=== PATIENT | female | born 1955 | race Caucasian/White ===

== ENCOUNTER 2024-04-22 22:28 | Inpatient (IN) | payer MEDICARE, BC, SELFPAY ==
[2024-04-22 18:23] VITALS: BP 119/83
[2024-04-22 19:36] VITALS: BMI 17.5
--- NOTE | 2024-04-22 19:38 | ED.GENMED ---
History of Present Illness
General
Chief Complaint: Abdominal Symptoms
Source: patient
Exam Limitations: none
Time Seen by Provider: 04/22/24 19:14
History of Present Illness
History of Present Illness:
This is a 68 year old female that comes in with c/o abnormal labs. States that 2 weeks ago her liver enzymes were elevated. State that she had an US and they kept going up. States that yesterday her liver enzymes were down but her Total louis was
elevated to 7. States that she also had an MRI yesterday at [facility] on her gallbladder. States that the Oncologist office called her and told her to come to the ER as the MRI said that her duct was narrow. States that she is to be admitted and
Yuan to see patient tomorrow. States that she has had nausea and diarrhea and her urine is very dark. Denies any fever, chills, chest pain, SOB, abd pain, vomiting, headache, dizziness, urinary burning.
Past History
Past History
ED Past Medical History: Cancer (Pancreatic cancer)
ED Past Surgical History: (X1)
Social History
Tobacco: Non-smoker
Alcohol: Former
Personal:
Living: with family
Review of Systems
Review of Systems
All Other Systems: ROS reviewed and negative except as documented in HPI and ROS
Constitutional: Reports no symptoms; Denies fever or chills
EENT: Reports no symptoms
Respiratory: Reports no symptoms; Denies cough or trouble breathing
Cardiac: Reports no symptoms; Denies chest pain
ABD/GI: Reports nausea and diarrhea; Denies abdominal pain or vomiting
: Reports dark urine; Denies dysuria, frequency or urgency
Musculoskeletal: Reports no symptoms
Skin: Reports no symptoms
Neurological: Reports no symptoms; Denies dizzy or headache
Psychiatric: Reports no symptoms
Phy Exam
General Physical Exam
General Presentation: no apparent distress
General age: appears stated age
General Skin: warm and dry
General Habitus: normal
General Mental: alert
General Hydration: appears well hydrated
ENT Exam
ENT Exam: TM's normal, pharynx normal and neck supple
Eye Exam
Eye Exam: EOMI and other (Sclera jaundice)
Cardiovascular Exam
Cardiovascular Exam: regular rate/rhythm, no edema, no murmur and normal peripheral pulses
Pulmonary Exam
Pulmonary Exam: lungs clear, no respiratory distress, no rales, chest non tender, no crackles, no rhonchi, no wheezing and no cough
Gastrointestinal Exam
Gastrointestinal Exam: normal bowel sounds, non tender, soft, no organomegaly, no pulsatile mass and non distended
Musculoskeletal Exam
Musculoskeletal Exam: full ROM and no edema
Skin Exam
Skin Exam: warm/dry, no petechia and jaundice
Psychiatric Exam
Psychiatric Exam: normal mood/affect
Course
Orders/Labs/Results
Orders:
Orders
04/22/24 19:38
US Abdomen Complete/Upper Urgent
Comment:
Reason For Exam: elevated liver enzymes.
04/22/24 19:41
0.9% Sodium Chloride 1000 ml [Nss] 1,000 ml IV BOLUS
04/22/24 19:59
Complete Blood Count/With Diff Urgent
Comprehensive Metabolic Panel Urgent
Direct Bilirubin Urgent
Comment: ADD ON
Lipase Urgent
04/22/24 21:07
Add On- LAB Urgent
Tests Added?: Direct louis
Abnormal Lab Results
04/22/24
19:59
WBC 18.6 H 10^3/uL
(4.8-10.8)
RBC 2.68 L 10^6/uL
(4.20-5.40)
Hgb 8.3 L g/dL
(12.0-16.0)
Hct 23.5 L %
(37.0-47.0)
RDW 18.6 H %
(11.5-14.5)
Abs Immat Gran (auto) 0.5 H 10^3/uL
(0-0.05)
Absolute Neuts (auto) 14.9 H 10^3/uL
(1.4-6.5)
Absolute Monos (auto) 1.4 H 10^3/uL
(0.1-0.6)
Immature Gran % 2.5 H %
(0-0.5)
Neutrophils % 80.0 H %
(42.2-75.2)
Lymphocytes % 8.8 L %
(20.5-51.1)
Carbon Dioxide 18 L mmol/L
(22-30)
Creatinine 0.4 L mg/dL
(0.6-1.0)
Glucose 105 H mg/dl
(70-99)
Total Bilirubin 7.1 H mg/dl
(0.2-1.3)
AST 147 H U/L
(14-36)
ALT 355 H U/L
(0-35)
Alkaline Phosphatase 367 H U/L
(38-126)
Total Protein 6.1 L g/dl
(6.3-8.2)
04/22/24 19:59
04/22/24 19:59
Leukocytosis, H/H slightly low. carbon dioxide slightly low. glucose nonfasting. Total louis elevation, AST/ALT elevation. Alk phos elevation (cancer), Total protein slightly low. Lipase normal at 102. Direct louis elevated to 5.9
Vital Signs
Initial and Last Documented VS:
Initial Vital Signs
Temp Pulse Resp BP Pulse Ox
99.0 F 84 18 119/83 100
04/22/24 18:23 04/22/24 18:23 04/22/24 18:23 04/22/24 18:23 04/22/24 18:23
Last Documented Vital Signs
Temp Pulse Resp BP Pulse Ox
99.0 F 84 18 119/83 100
04/22/24 18:23 04/22/24 18:23 04/22/24 18:23 04/22/24 18:23 04/22/24 18:23
MDM/Problems Addressed
Differential Diagnosis Includes:
ductal obstruction,
MDM/Problems Addressed:
This is a 68 year old female that comes in for admission. States that she was called by her oncologist and told to come in for admission as her MRI saw that a duct was narrow from the gallbladder.
will get labs, US and admit.
Back into see patient. Patient was able to pull up the report of her recent MRI. Unable to be printed off. Reviewed US report from today and blood work. Will admit patient. Hospitalist notified.
Chronic conditions affecting care: Cancer
Acute Exacerbation and/or Progression of Chronic Illness: Cancer
*Radiology
Radiology exam reviewed: radiology read reviewed (US-There is dilation of the common duct is 17mm suggesting distal biliary obstruction in this patient with known pancreatic carcinoma. The pancreas is not well visualized because of overlying bowel
gas. The liver measures 13cm in length and is diffusely coarsened echotexture such as could be seen ) and all reviewed NAD by ED Provider (US cont- with cirrhosis. No focal hepatic lesions are demonstrated in this patient with a reported history of
Hepatic metastasis. There is biliary sludge in gallbladder. )
*Pulse Oximetry
Patient hypoxic: no
*EKG
Interpreted by ED Provider?: NA
Rate: EKG- N/A
*Dyed Raw Stock Blower Feeder Interpretation
Rate: Dyed Raw Stock Blower Feeder- N/A
*Critical Care Note
Total Time (30-74mins, 75-104mins- exclusive of procedures): Not Applicable
ED Attending Note
-
Portions of this chart may have been created with voice recognition software.� Occasional wrong word or��sound alike� substitutions may have occurred due to the inherent limitations of voice recognition software.
Discharge Plan
Departure
Patient Disposition: Admit
Date of Disposition: 04/22/24
Time of Disposition: 21:40
Admit to: Med/Surg
Presentation/result/management discussed w/ accepting MD/DO: Hospitalist
Patient with high blood pressure during this ER visit?: No
Condition: Good
Covid-19: Not Applicable
Discharge Problem:
Elevated liver enzymes, Jaundice, Common bile duct dilation
Prescriptions:
No Action
fluoxetine 40 mg Capsule
40 mg PO DAILY
loperamide [Imodium] 2 mg Capsule
2 mg PO BIDPRN PRN (Reason: diarrhea)
ondansetron HCl [Zofran] 8 mg Tablet
8 mg PO Q8HPRN PRN (Reason: nausea)
naltrexone 4.5 mg Capsule
4.5 mg PO HS
Patient Comments:
04/22/24: Unable to confirm, patient receives by mail.
Referrals:
NONE,* [Active] -
Interventions
Interventions:
*Risk Screen - Suicide Last Done: 04/22/24 18:28
*General Assessment Last Done: 04/22/24 19:36
*Neglect/Abuse Screening Last Done: 04/22/24 18:28
ED- Fall Risk Assessment Last Done: 04/22/24 19:34
*ED COVID-19 Vaccine History Last Done: 04/22/24 19:36
FC-Ijirgo-Ctpwelhims Assessment Last Done: 04/22/24 19:32
Discharge Date and Time
Print Language: SERBIAN
[2024-04-22] MEDS: NSS 1000 IV (20:07)
[2024-04-22 20:30] LABS: Hematocrit 23.5 % (37.0-47.0); Hemoglobin 8.3 g/dL (12.0-16.0); Mean Corp Hgb Conc. 35.3 g/dL (33.0-37.0); Mean Corpuscular Volume 87.7 fL (81.0-99.0); Mean Platelet Volume 10.2 fL (7.4-10.4); Platelet Count 314 10^3/uL (130-400); Red Blood Cell Count 2.68 10^6/uL (4.20-5.40); Red Cell Dist. Width 18.6 % (11.5-14.5); White Blood Cell Count 18.6 10^3/uL (4.8-10.8)
[2024-04-22 20:33] LABS: % Basophils 0.8 % (0-2); % Eosinophils 0.3 % (0-6); % Immature Granulocytes 2.5 % (0-0.5); % Lymphocytes 8.8 % (20.5-51.1); % Monocytes 7.6 % (1.7-9.3); Absolute Basophils 0.2 10^3/uL (0-0.2); Absolute Eosinophils 0.1 10^3/uL (0-0.7); Absolute Immature Granulocytes 0.5 10^3/uL (0-0.05); Absolute Lymphocytes 1.6 10^3/uL (1.2-3.4); Absolute Monocytes 1.4 10^3/uL (0.1-0.6); Absolute Neutrophils 14.9 10^3/uL (1.4-6.5); Nucleated Red Blood Cells % 0 %
[2024-04-22 20:41] LABS: ALT (SGPT) 355 U/L (0-35); AST (SGOT) 147 U/L (14-36); Albumin 3.7 g/dl (3.5-5.0); Alkaline Phosphatase 367 U/L (38-126); Blood Urea Nitrogen 11 mg/dl (7-17); Calcium 9.6 mg/dl (8.4-10.2); Carbon Dioxide 18 mmol/L (22-30); Chloride 105 mmol/L (98-107); Estimated Creatinine Clearance 68 ml/min; Glucose 105 mg/dl (70-99); Potassium 3.5 mmol/L (3.5-5.1); Sodium 139 mmol/L (135-145); Total Bilirubin 7.1 mg/dl (0.2-1.3); Total Protein 6.1 g/dl (6.3-8.2); eGFR > 60.00
[2024-04-22 20:42] LABS: Lipase 102 U/L (23-300)
[2024-04-22 21:14] VITALS: BP 136/76
[2024-04-22 21:38] LABS: Direct Bilirubin 5.9 mg/dl (0.0-0.4)
[2024-04-22 22:00] VITALS: BP 152/72
--- NOTE | 2024-04-22 22:14 | HPS.HSE ---
Family Physician
-
Family Physician: Giselle Hughes
Chief Complaint
-
Abnormal Labs / Imaging
History of Present Illness
Patient is a 68y F with PMH significant for pancreatic cancer on chemotherapy who presents to ED for evaluation of abnormal outpatient labs / imaging. Patient has domonique receiving chemotherapy for pancreatic cancer for the past year. Her last
session was 04/12 - 04/14. Patient states that she was noted to have abnormal LFTs about 2 weeks ago. Family noted that she has been yellow-appearing over the past 1-2 weeks. She had repeat labs done which showed progression of LFT abnormalities -
including rising bilirubin. She had outpatient imaging including and US and hen MRCP done 04/21. Patient was called today with results and advised to present to the ED for admission and probable ERCP / stent placement.
Patient states that she feels fairly well. She has been nauseated and has been taking Zofran daily. She has had diarrhea which has been attributed to her chemo agents.
Patient denies any fevers, chills, abdominal pain, etc.
Medical History
Past Medical History
Past Medical History: Reports Other
Additional Past Medical History:
Pancreatic Cancer
Past Surgical History: Reports Other
Additional Past Surgical History:
Social History
Tobacco: Non-smoker
Alcohol: None
Drug: None
Family History
Family History: Other (Father: Hematologic malignancy Brother: Testicular Cancer, Polycythemia, Skin Cancer)
Allergies / Home Medications
Allergies reflects when Allergies were last updated in [facility].
Home Medications with original date entered in [facility]
Allergy/Medication List:
Allergies
Allergy/AdvReac Type Severity Reaction Status Date / Time
Sulfa (Sulfonamide Allergy Unknown Rash Verified 04/22/24 20:07
Antibiotics)
Home Medications
fluoxetine 40 mg capsule 40 mg PO DAILY 04/22/24
loperamide 2 mg capsule 2 mg PO BIDPRN PRN diarrhea 04/22/24
naltrexone 4.5 mg capsule 4.5 mg PO HS 04/22/24
ondansetron HCl 8 mg tablet 8 mg PO Q8HPRN PRN nausea 04/22/24
Review of Systems
-
History Source: Patient
A 12 point ROS was completed and negative except as noted: Yes
Constitutional: Denies Fever or Chills
Respiratory: Denies Cough or Trouble Breathing
Cardiac: Denies Chest Pain or Palpitations
Abdomen/GI: Reports Nausea and Diarrhea; Denies Abdominal Pain, Vomiting, Constipated, Bloody Stools or Black Stools
: Denies Dysuria, Frequency or Flank Pain
Musculoskeletal: Denies Joint Pain or Edema
Neurological: Denies Dizzy or Headache
Psych: Denies Depression or Anxiety
Physical Exam
Vital Signs
Vital Signs
Temp Pulse Resp BP Pulse Ox
99.0 F 76 20 136/76 99
04/22/24 18:23 04/22/24 21:45 04/22/24 21:15 04/22/24 21:14 04/22/24 21:00
Physical Exam
General: Other (68y F in no acute distress. Pos jaundice.)
HEENT: Other (Scleral icterus.)
Respiratory: Clear; No Wheezes, Rales or Rhonchi
Cardiac: S1/S2, Regular Rhythm and Murmur (III/ LARA)
GI: Soft, Non Tender, Non Distended and Normal Bowel Sounds
Musculoskeletal: No Clubbing, No Cyanosis and No Edema
Neuro: AO x 3
Laboratory Results
-
04/22/24 19:59
04/22/24 19:59
Laboratory Results
Total Bilirubin 7.1 mg/dl (0.2-1.3) H 04/22/24 19:59
AST 147 U/L (14-36) H 04/22/24 19:59
ALT 355 U/L (0-35) H 04/22/24 19:59
Alkaline Phosphatase 367 U/L (38-126) H 04/22/24 19:59
Lipase 102 U/L (23-300) 04/22/24 19:59
Impression/Plan
-
A/P: Patient is a 68y F with PMH significant for pancreatic cancer on chemotherapy who was sent to the ED for evaluation of abnormal labs / imaging.
Cholestasis
Pancreatic Cancer
- Admit for further evaluation and treatment.
- Abnormal LFTs in cholestatic pattern.
- Imaging as an outpatient - including MRCP 04/21 show dilated CBD (17-18mm) with abrupt tapering at pancreatic head - but no specific mass / lesion.
- NPO.
- GI evaluation for probable ERCP +/- stent placement.
- Follow for improvement in LFTs.
- Supportive care including antiemetics, etc.
Pancreatic Cancer
- On chemo x 1 year.
- Nausea and diarrhea as noted in HPI.
- Supportive care. Follow-up with Oncology as an outpatient.
Anemia
- Suspect this is due to chemotherapy regimen?
- No prior labs available for comparison here.
- Follow for changes in H&H/
- Check iron studies, etc.
Murmur
- Patient with evident cardiac murmur noted on exam.
- She was previously unaware of any heart murmur.
- Will check Echo.
DVT Prophylaxis: SCDs
Code Status: Full
[2024-04-22] MEDS: IMODIUM 2 MG PO (22:46)
[2024-04-22 23:06] VITALS: BP 129/60; BMI 17.5
[2024-04-22 23:28] LABS: Iron 52 ug/dl (37-170)
[2024-04-22 23:37] LABS: Percent Saturation 14 % (20-50); Total Iron Binding Capacity 364 ug/dl (265-497)
--- NOTE | 2024-04-22 23:37 | PTCARENOTE ---
Pt was received from ED and walked from stretcher to bed with steady gait. Pt AAOx3, No c/o pain, VSS. No IV fluids ordered for pt. PECAN HULLER notified, NSS @75ml/hr ordered. Pt is oriented to the unit and has call mcmillan in reach.
[2024-04-22 23:38] LABS: Reticulocyte Count 2.7 % (0.4-2.8)
[2024-04-23 04:55] LABS: Hematocrit 21.7 % (37.0-47.0); Hemoglobin 7.9 g/dL (12.0-16.0); Mean Corp Hgb Conc. 36.4 g/dL (33.0-37.0); Mean Corpuscular Hgb 32.4 pg (27.0-31.0); Mean Corpuscular Volume 88.9 fL (81.0-99.0); Mean Platelet Volume 10.1 fL (7.4-10.4); Platelet Count 280 10^3/uL (130-400); Red Blood Cell Count 2.44 10^6/uL (4.20-5.40); Red Cell Dist. Width 18.6 % (11.5-14.5); White Blood Cell Count 12.8 10^3/uL (4.8-10.8)
[2024-04-23 05:21] LABS: ALT (SGPT) 294 U/L (0-35); AST (SGOT) 111 U/L (14-36); Albumin 3.1 g/dl (3.5-5.0); Alkaline Phosphatase 334 U/L (38-126); Blood Urea Nitrogen 7 mg/dl (7-17); Calcium 8.9 mg/dl (8.4-10.2); Carbon Dioxide 18 mmol/L (22-30); Chloride 109 mmol/L (98-107); Direct Bilirubin 5.7 mg/dl (0.0-0.4); Estimated Creatinine Clearance 68 ml/min; Glucose 87 mg/dl (70-99); Potassium 3.2 mmol/L (3.5-5.1); Sodium 142 mmol/L (135-145); Total Bilirubin 6.6 mg/dl (0.2-1.3); Total Protein 5.4 g/dl (6.3-8.2); eGFR > 60.00
--- NOTE | 2024-04-23 08:16 | CON.GI ---
Consultation
-
Date/Time Consultation Requested: 04/22/2024, 22:08
Date/Time Consultation Performed: 04/23/2024, 08:15
Requesting Provider: Dr. Curtis Bolton
Performing Provider: Dr. Valeriy Ac
Reason for Consultation: Cholestasis, Pancreatic cancer
Medical History
Chief Complaint / HPI
Chief Complaint: Abnormal labs / imaging
History of Present Illness:
Ms Gonzalez is a 68 y.o female with past medical history of pancreatic cancer with liver mets (dx on 12/2022 with pancreatic tail lesion, s/p IR liver bx liver met) on chemotherapy (prev on oxaliplatin, now on 5-FU, last session 04/12-04/14) who
presented to the ED with abnormal labs demonstrating hyperbilirubinemia and painless jaundice.
Patient states she was in her USOH until two weeks ago when she developed darker urine, yellowish discoloration of her eyes and pale colored stools. Was noted to have abnormal LFTs over 2 weeks ago (unable to view previous results - at [facility])
but they were reportedly normal in the past. Denies any new medications, alcohol or other herbal supplements. She eventually an US and MRCP (performed on 04/21- unable to view report) and was advised to come to the ED due to concern for biliary
obstruction in setting of her pancreatic malignancy. Otherwise, she denies any abdominal pain, RUQ discomfort, nausea/vomiting, or bloody stools. Takes zofran at home for nausea after her chemo, last session on 04/12-04/14. Otherwise, she denies any
fevers, chills, night sweats or other constitutional symptoms. Denies any antiplatelets or anticoagulants.
Of note, prior MRCP per report on 04/21 with dilated CBD (17-18mm) with abrupt tapering at pancreatic head - but no specific mass / lesion.
In the ED, she was afebrile and HD-stable. Labs notable for BUN 11 and Graduate Research Assistant 0.4. LFTs with AST 147, ALT 355, ALP 367, and T Bili 7.1 Lipase 102. CBC with WBC 18.6, Hgb 8.3 and plts 314. Abd US revealed dilatation of the CBD up to 17, suggesting
distal biliary obstruction. Pancreas was not well-visualized due to gas. Liver with diffusely coarsened echotexture without focal hepatic lesions and biliary sludge in gallbladder. She was kept NPO and admitted to medicine for further management.
Past Medical History
Past Medical History: Other (Pancreatic cancer with liver mets, nausea 2/2 chemo)
Past Surgical History:
Social History
Tobacco: Non-Smoker
Alcohol: None
Drug: None
Family History
Family History: Reviewed & Not Pertinent
Allergies / Home Medications
Allergy/AdvReac Type Severity Reaction Status Date / Time
Sulfa (Sulfonamide Allergy Rash/HIVES Verified 04/22/24 22:58
Antibiotics)
�Medication �Instructions �Recorded
fluoxetine 40 mg capsule 40 mg PO DAILY 04/22/24
loperamide 2 mg capsule 2 mg PO BIDPRN PRN diarrhea 04/22/24
naltrexone 4.5 mg capsule 4.5 mg PO HS 04/22/24
ondansetron HCl 8 mg tablet 8 mg PO Q8HPRN PRN nausea 04/22/24
Review of Systems
-
All other systems: A 12 pt ROS was Negative except as stated above in HPI
Vital Signs
Temp Pulse Resp BP Pulse Ox
99.2 F 86 18 129/60 99
04/23/24 03:47 04/22/24 23:06 04/22/24 23:06 04/22/24 23:06 04/23/24 00:48
Physical Exam
Exam
General: Well Developed, No Apparent Distress and Comfortable
HEENT: Other (Scleral icterus)
Respiratory: Non Labored Respirations
Cardiac: Regular Rhythm
GI: Soft, Non Tender, Non Distended and Flat
Skin: Other (Jaundiced)
Neuro: AO x 3 and Nonfocal/Grossly Intact
Psych: Calm
Results
WBC 12.8 10^3/uL (4.8-10.8) H 04/23/24 04:40
Hgb 7.9 g/dL (12.0-16.0) L 04/23/24 04:40
Hct 21.7 % (37.0-47.0) L 04/23/24 04:40
MCV 88.9 fL (81.0-99.0) 04/23/24 04:40
Plt Count 280 10^3/uL (130-400) 04/23/24 04:40
Absolute Neuts (auto) 14.9 10^3/uL (1.4-6.5) H 04/22/24 19:59
Sodium 142 mmol/L (135-145) 04/23/24 04:40
Potassium 3.2 mmol/L (3.5-5.1) L 04/23/24 04:40
Chloride 109 mmol/L (98-107) H 04/23/24 04:40
Carbon Dioxide 18 mmol/L (22-30) L 04/23/24 04:40
BUN 7 mg/dl (7-17) 04/23/24 04:40
Creatinine 0.4 mg/dL (0.6-1.0) L 04/23/24 04:40
Calcium 8.9 mg/dl (8.4-10.2) 04/23/24 04:40
Total Bilirubin 6.6 mg/dl (0.2-1.3) H 04/23/24 04:40
AST 111 U/L (14-36) H 04/23/24 04:40
ALT 294 U/L (0-35) H 04/23/24 04:40
Alkaline Phosphatase 334 U/L (38-126) H 04/23/24 04:40
Lipase 102 U/L (23-300) 04/22/24 19:59
Diagnostic Image Results:
Abd US 04/22/24 revealed dilatation of the CBD up to 17, suggesting distal biliary obstruction. Pancreas was not well-visualized due to gas. Liver with diffusely coarsened echotexture without focal hepatic lesions and biliary sludge in gallbladder.
Assessment / Plan
-
Ms Gonzalez is a 68 y.o female with past medical history of pancreatic cancer with liver mets (dx 12/2022 with pancreatic tail lesion, s/p IR liver bx liver met) on chemotherapy (prev on oxaliplatin, now on 5-FU, last session 04/12-04/14) who
presented to the ED with abnormal labs demonstrating hyperbilirubinemia and painless jaundice.
#Elevated LFTs w/ #Cholestatic-induced liver injury
#Hyperbilirubinemia
#Painless Jaundice
#Biliary Obstruction
#Pancreatic Cancer w/ Liver Mets (dx 12/2022)
Impression: Patient with new, developing painless jaundice over the past 2 weeks found to have LFTs concerning for biliary obstruction with hyperbilirubinemia. Outpatient MRI/MRCP on 04/21 with dilated CBD (17 - 18 mm) with abrupt tapering at
pancreatic head without specific mass or lesion. LFTs on admission with AST 147, ALT 355, ALP 367, and T Bili 7.1 and Abd US on 04/22 with ongoing biliary ductal dilatation. Concern for distal biliary obstruction with stricture 2/2 pancreatic mass
and would benefit from ERCP for biliary decompression with stent placement. Mild leukocytosis on admission but without fevers, chills, abd pain or other signs/symptoms to suggest biliary sepsis.
Recommendations:
- Keep NPO
- Trend serial LFTs and T bili q daily
- Plan for ERCP with stent placement today, 04/23/24
- Monitor off IV abx, low threshold to start if fevers, worsening pain or worsening leukocytosis
- Pain control and IV anti-emetics PRN
- See same day ERCP for additional recommendations
- Request outside records
- Rest of care per primary team
#Normocytic Anemia
Hgb 8.3 with MCV 87.7 on admission without signs of GI bleeding. Unknown baseline, repeat Hgb this AM 7.9. Suspect chemo-related given recent session (on 04/12-04/14)
- Trend Hgb with serial CBC
- Send anemia w/u: iron studies, ferritin, folate, B12 and retic count
- Transfuse for goal Hgb > 7.0
Data Reviewed
-
Radiology: Image Personally Visualized and interpreted and Report Reviewed by me
Ultrasound: Image Personally Visualized and interpreted and Report Reviewed by me
Old Records: Requested
-
-
Thank you for consultation and allowing me to participate in the patient's care. Please call the expanded function dental assistant GI physician during the after hours with any questions or concerns.
[2024-04-23 10:33] VITALS: BP 129/61; BP_SYST 14
[2024-04-23 10:48] VITALS: BP 121/68; BP_SYST 19
[2024-04-23 10:52] LABS: Magnesium 1.4 mg/dl (1.6-2.3)
[2024-04-23 11:00] VITALS: BP_SYST 18
[2024-04-23] MEDS: KCL 270 MEQ IV (11:12)
[2024-04-23 11:25] VITALS: BP 136/62
--- NOTE | 2024-04-23 11:44 | W.PN.HOSP.TC ---
Today's Communication/Plan
-
Clear liquid diet for lunch
Advance to solids for dinner if stable.
Oncology consult
Repeat labs in the morning
Assessment / Plan
Assessment / Plan
Gen-AAOx3, NAD
HEENT-NC, AT, clear oral mm, bilateral scleral icterus
Neck-supple
CV-reg, no M, +S1/S2
Lungs-clear B/L
Abd-soft, NT, ND
Ext-no edema
Musculoskeletal-no cyanosis, clubbing
Skin-warm and dry, diffusely jaundiced
Neuro-grossly non-focal
Psych-calm, cooperative
Obstructive jaundice -likely due to known pancreatic cancer, biliary obstruction. ERCP and stenting and sphincterotomy completed today. Discussed with Dr. Bolden. Mass noted on ERCP causing obstruction of CBD.
Clear liquid diet for lunch, advance to solids for dinner if she tolerates. Monitor LFTs in the hospital. Watch overnight and possible discharge tomorrow if stable.
Acute on chronic anemia -hemoglobin 8.3 yesterday, 7.9 today. She denies bleeding. Unclear if anemia related to chemotherapy, malignancy, other issues. Reticulocyte count 2.7%, iron deficiency noted, ferritin pending.
Recheck CBC in the morning. Baseline hemoglobin unknown but patient believes it may have been 11 a few weeks ago.
Hypokalemia -replete IV.
Hypomagnesemia -will replete.
Pancreatic cancer with liver metastases -diagnosed December 2022. Getting chemotherapy under the direction of Dr. Forte. Will consult oncology.
Hepatic cirrhosis suspected -ultrasound findings note diffusely coarsened echotexture. She does have a history of daily alcohol use. Will need outpatient FibroScan and further evaluation for possible cirrhosis. Elevated transaminases, bilirubin,
alkaline phosphatase noted. No focal hepatic lesions noted on ultrasound.
Full code
Dispo -potential discharge tomorrow if stable as per GI service.
Family updated at the bedside.
Anticipated Discharge: Within 24 hours
Subjective/Interval History
-
Date of Service: April 23, 2024
Patient seen and examined. Feeling better currently, no complaints.
Objective Data
-
Labs:
Laboratory Results
04/23/24
04:40
WBC 12.8 H
Hgb 7.9 L
Hct 21.7 L
Plt Count 280
Sodium 142
Potassium 3.2 L
Chloride 109 H
Carbon Dioxide 18 L
BUN 7
Creatinine 0.4 L
Glucose 87
Calcium 8.9
Total Bilirubin 6.6 H
AST 111 H
ALT 294 H
Alkaline Phosphatase 334 H
Vital Signs:
Vital Signs
Temp Pulse Resp BP Pulse Ox
98 F 66 17 136/62 99
04/23/24 11:25 04/23/24 11:25 04/23/24 11:25 04/23/24 11:25 04/23/24 11:25
Review of Systems
-
History Source: Patient
All other systems: Reviewed and negative
--- NOTE | 2024-04-23 12:49 | CON.ONC ---
Impression
Impression
obstructive jaundice - s/p ERCP w/ sphincterotomy/ stents
metastatic pancreatic cancer
Plan
Plan
1. Obstructive jaundice - s/p sphincterotomy w/ stents - Dr. Bolden
-f/u LFTs
2. Metastatic pancreatic cancer
-f/u w/Dr. Forte as outpt for continued management
Patient History
History of Present Illness
68y/o female seen in consultation today regarding metastatic pancreatic cancer. The patient has been on palliative systemic chemotherapy - FOLFIRI - treatment under the care of Dr. Forte since January 2023.
In early April, the patient's LFTs bumped up, w/ rise in bilirubin prompting abdominal US on 04/17/24 revealing lareying gallbladder slugdge, w/ CBD dilation to 14mm, prompting MRCP on 04/21/24 revealing markedly dilated CBD measuring 1.8cm. LFTs
on 04/21 revealed rise in bilirubin to 7.2.
The patient subequently presented to the ER, undergoing ERCP today w/ Dr. Bolden, w/ a severe biliary stricture of the lower third of the main bile duct, w/ sphincterotomy performed along w/ stent placements. Total bilirubin this am was 6.6.
She is feeling decent post-procedure. She denies abdominal pain. She denies SOB or chest pain. She does have jaundice.
Past-Medical/Surgical History
PMH:
metastatic pancreatic cancer - FOLFIRI - Dr. Forte
obstructive jaundice
hyperlipidemia
ADD
osteopenia
anxiety
psoriasis
lichen planus
PSH:
wisdom teeth
SH: not tobacco, occaional ETOH
FH: multiple myeloma - father, brother thalassemia, brother - lymphoma
Allergies: as per chart
Patient Medication
�Medication �Instructions �Recorded �Confirmed �Last Taken �Type
fluoxetine 40 mg capsule 40 mg PO DAILY Depression 04/22/24 04/22/24 Unknown History
loperamide 2 mg capsule 2 mg PO BIDPRN PRN diarrhea 04/22/24 04/22/24 Unknown History
naltrexone 4.5 mg capsule 4.5 mg PO HS Pain 04/22/24 04/23/24 Unknown History
ondansetron HCl 8 mg tablet 8 mg PO Q8HPRN PRN nausea 04/22/24 04/22/24 Unknown History
Active Medications
Generic Name Dose Route Start Last Admin
Trade Name Freq PRN Reason Stop Dose Admin
Heparin Sodium (Porcine) 500 unit 04/23/24 12:00
Heparin Flush Pf (100 Unit/Ml) 5 Ml Syringe IV 05/21/24 11:59
PER PROTOCOL RUPINDER
Sodium Chloride 1,000 mls @ 75 mls/hr 04/22/24 23:45 04/23/24 00:00
Nss IV 1,000 mls
.[id number] RUPINDER Administration
Potassium Chloride 40 meq/ 270 mls @ 67.5 mls/hr 04/23/24 09:48 04/23/24 11:12
Sodium Chloride IV 04/23/24 13:47 270 mls
NOW STA Administration
Magnesium Sulfate 4 gram in 100 mls @ 25 mls/hr 04/23/24 11:55
Magnesium Sulfate IV 04/23/24 15:54
NOW STA
Loperamide HCl 2 mg 04/22/24 22:55
Loperamide 2 Mg Capsule PO 05/20/24 22:54
Q4HPRN PRN
Diarrhea
Ondansetron HCl 4 mg 04/22/24 22:55
Ondansetron 4 Mg/2 Ml Vial IV 05/20/24 22:54
Q6HPRN PRN
nausea and vomiting
Sodium Chloride 0 flush 04/22/24 23:00
Sodium Chloride 0.9% (Flush) Syringe IV 05/20/24 22:59
PER PROTOCOL RUPINDER
Review of Systems
-
A ROS was performed w/ pertinent findings as per HPI.
Physical Exam
-
General: Well Developed and No Apparent Distress
HEENT: Jaundice
Cardiology: Normal Sinus Rhythm
Pulmonary: Clear
Musculoskeletal: No Edema
Neurology: Non Focal
Labs
Lab Results
WBC 12.8 10^3/uL (4.8-10.8) H 04/23/24 04:40
RBC 2.44 10^6/uL (4.20-5.40) L 04/23/24 04:40
Hgb 7.9 g/dL (12.0-16.0) L 04/23/24 04:40
Hct 21.7 % (37.0-47.0) L 04/23/24 04:40
MCV 88.9 fL (81.0-99.0) 04/23/24 04:40
MCH 32.4 pg (27.0-31.0) H 04/23/24 04:40
MCHC 36.4 g/dL (33.0-37.0) 04/23/24 04:40
RDW 18.6 % (11.5-14.5) H 04/23/24 04:40
Plt Count 280 10^3/uL (130-400) 04/23/24 04:40
MPV 10.1 fL (7.4-10.4) 04/23/24 04:40
Abs Immat Gran (auto) 0.5 10^3/uL (0-0.05) H 04/22/24 19:59
Absolute Neuts (auto) 14.9 10^3/uL (1.4-6.5) H 04/22/24 19:59
Absolute Lymphs (auto) 1.6 10^3/uL (1.2-3.4) 04/22/24 19:59
Absolute Monos (auto) 1.4 10^3/uL (0.1-0.6) H 04/22/24 19:59
Absolute Eos (auto) 0.1 10^3/uL (0-0.7) 04/22/24 19:59
Absolute Basos (auto) 0.2 10^3/uL (0-0.2) 04/22/24 19:59
Immature Gran % 2.5 % (0-0.5) H 04/22/24 19:59
Neutrophils % 80.0 % (42.2-75.2) H 04/22/24:59
Lymphocytes % 8.8 % (20.5-51.1) L 04/22/24:59
Monocytes % 7.6 % (1.7-9.3) 04/22/24:59
Eosinophils % 0.3 % (0-6) 04/22/24:59
Basophils % 0.8 % (0-2) 04/22/24:59
Creatinine 0.4 mg/dL (0.6-1.0) L 04/23/24 04:40
Vital Signs
Vital Signs
Temp Pulse Resp BP Pulse Ox
98 F 66 17 136/62 99
04/23/24 11:25 04/23/24 11:25 04/23/24 11:25 04/23/24 11:25 04/23/24 11:25
[2024-04-23 14:40] LABS: Folate > 20.0 ng/ml (2.76-20); Vitamin B12 > 1000 pg/ml (239-931)
[2024-04-23 14:41] VITALS: BMI 17.5
--- NOTE | 2024-04-23 15:29 | CM ---
met with patient and 2 daughters at bedside.patient lives alone in house with 2 javier,her bed and bath is on first floor,she amb i,is i with her adl.patient has never had a vn or been to ip rehab in past.
PCP: dr jocelin mora. [facility]
PMH: pancreatic ca with metastasis to liver
patient is adm with biliary obstruction/jaundice.she is pod ercp/sphincterectomy/biliary stents.clears liquids and advnce if tolerated,ivf.Plan :dc home with no needs.
[2024-04-23] MEDS: MAGNESIUM SULFATE 100 IV (15:39)
[2024-04-23] MEDS: NSS IV (15:45)
[2024-04-23 16:30] VITALS: BP 118/64
[2024-04-23] MEDS: NSS 1000 IV ×2 (22:49)
[2024-04-23 23:35] VITALS: BP 121/61
[2024-04-24 07:00] VITALS: BP 127/66
[2024-04-24 07:44] LABS: Hematocrit 23.9 % (37.0-47.0); Hemoglobin 8.6 g/dL (12.0-16.0); Mean Corpuscular Hgb 31.7 pg (27.0-31.0); Mean Corpuscular Volume 88.2 fL (81.0-99.0); Mean Platelet Volume 10.1 fL (7.4-10.4); Platelet Count 324 10^3/uL (130-400); Red Blood Cell Count 2.71 10^6/uL (4.20-5.40); Red Cell Dist. Width 19.6 % (11.5-14.5); White Blood Cell Count 15.4 10^3/uL (4.8-10.8)
[2024-04-24 08:05] LABS: AST (SGOT) 126 U/L (14-36); Alkaline Phosphatase 359 U/L (38-126); Blood Urea Nitrogen 4 mg/dl (7-17); Calcium 8.6 mg/dl (8.4-10.2); Carbon Dioxide 24 mmol/L (22-30); Chloride 110 mmol/L (98-107); Estimated Creatinine Clearance 68 ml/min; Glucose 123 mg/dl (70-99); Sodium 144 mmol/L (135-145); Total Bilirubin 5.4 mg/dl (0.2-1.3); Total Protein 5.3 g/dl (6.3-8.2); eGFR > 60.00
[2024-04-24 08:13] LABS: ALT (SGPT) 254 U/L (0-35); Potassium 3.7 mmol/L (3.5-5.1)
[2024-04-24 08:57] LABS: % Basophils 0.5 % (0-2); % Eosinophils 0.6 % (0-6); % Immature Granulocytes 3.5 % (0-0.5); % Lymphocytes 9.6 % (20.5-51.1); % Monocytes 8.6 % (1.7-9.3); % Neutrophils 77.2 % (42.2-75.2); Absolute Basophils 0.1 10^3/uL (0-0.2); Absolute Eosinophils 0.1 10^3/uL (0-0.7); Absolute Immature Granulocytes 0.5 10^3/uL (0-0.05); Absolute Lymphocytes 1.5 10^3/uL (1.2-3.4); Absolute Monocytes 1.3 10^3/uL (0.1-0.6); Absolute Neutrophils 11.8 10^3/uL (1.4-6.5); Nucleated Red Blood Cells % 0.1 %
--- NOTE | 2024-04-24 09:24 | W.PN.GI.CBS2 ---
Addendum entered and electronically signed by Aditya Weathers MD 04/24/24 10:20:
I discussed with Dr. Bolden, will plan KUB in 2 weeks to assess for PD stent. I gave prescription to the patient. Will follow-up with Dr. Bolden in 3 months.
Original Note:
Today's Communication / Plan
-
Please assessment plan for details.
Assessment / Plan
-
1. Biliary obstruction: With history of metastatic pancreatic cancer, status post metal and plastic biliary stent and plastic pancreatic duct stent, overall doing well, no signs of pancreatitis, tolerating diet without difficulty. At this point
she is okay to DC from GI standpoint. Will double check with Dr. Bolden about follow-up of pancreatic duct stent and office follow-up and will let her know. We will sign off now, please call back with any further questions.
Subjective
Subjective
Date of Service: April 24, 2024
Patient feeling well, no significant Deacon pain, nausea vomit, tolerate diet without difficulty.
Objective
Data Reviewed
Laboratory Data:
Laboratory Results
04/24/24 07:16
04/24/24 07:16
Laboratory Results
Magnesium 1.4 mg/dl (1.6-2.3) L 04/23/24 04:40
Total Bilirubin 5.4 mg/dl (0.2-1.3) H 04/24/24 07:16
AST 126 U/L (14-36) H 04/24/24 07:16
ALT 254 U/L (0-35) H 04/24/24 07:16
Alkaline Phosphatase 359 U/L (38-126) H 04/24/24 07:16
Lipase 102 U/L (23-300) 04/22/24 19:59
Vital Signs and I&O:
Vital Signs
Temp Pulse Resp BP Pulse Ox
98.6 F 65 18 127/66 100
04/24/24 07:00 04/24/24 07:00 04/24/24 07:00 04/24/24 07:00 04/24/24 07:00
I&O
04/23/24 04/24/24 04/25/24
06:59 06:59 06:59
Intake Total 150 / 150
Balance 150 / 150
Physical Exam
Physical Exam
General: NAD
Abdomen: normal bowel sounds, soft, no tenderness, no masses or bruits, no ascites
--- NOTE | 2024-04-24 11:20 | W.DS.TRANS ---
DC Summary - Adventure Guide
-
Discharge Instructions:
Discharge Diagnosis/Procedures Obstructive jaundice, pancreatic cancer, anemia
Diet Regular
Activity As tolerated
Driving Restrictions As prior to admission
Bathing Restrictions None
Instructions:
Stand-Alone Forms:
Changes to Home Medications: No
Discharge Medications:
DC Medications w/original date entered in [employer]
fluoxetine 40 mg capsule 40 mg PO DAILY Depression 04/22/24
loperamide 2 mg capsule 2 mg PO BIDPRN PRN diarrhea 04/22/24
naltrexone 4.5 mg capsule 4.5 mg PO HS Pain 04/22/24
ondansetron HCl 8 mg tablet 8 mg PO Q8HPRN PRN nausea 04/22/24
Home Medication Changes
Pending Results: No
--- NOTE | 2024-04-24 11:38 | CM ---
patient stable for dc home today with no needs.family to transport home.
--- NOTE | 2024-04-24 12:07 | W.PN.HOSP.TC ---
Today's Communication/Plan
-
Discharge
Assessment / Plan
Assessment / Plan
Gen-AAOx3, NAD
HEENT-NC, AT, clear oral mm, bilateral scleral icterus
Neck-supple
CV-reg, no M, +S1/S2
Lungs-clear B/L
Abd-soft, NT, ND
Ext-no edema
Musculoskeletal-no cyanosis, clubbing
Skin-warm and dry, diffusely jaundiced
Neuro-grossly non-focal
Psych-calm, cooperative
Obstructive jaundice -likely due to known pancreatic cancer, biliary obstruction. ERCP and stenting and sphincterotomy completed 04/23. Discussed with Dr. Bolden. Mass noted on ERCP causing obstruction of CBD.
Follow-up as outpatient. KUB in 2 weeks as per GI service.
Pruritus due to hyperbilirubinemia. Can try antihistamines but symptoms should improve as jaundice improves. Discussed with patient.
Acute on chronic anemia -hemoglobin stable at 8.6 today. She denies bleeding. Unclear if anemia related to chemotherapy, malignancy, other issues. Reticulocyte count 2.7%, iron deficiency noted, ferritin pending.
Recheck CBC in the morning. Baseline hemoglobin unknown but patient believes it may have been 11 a few weeks ago.
Hypokalemia -resolved.
Hypomagnesemia -treated.
Pancreatic cancer with liver metastases -diagnosed December 2022. Getting chemotherapy under the direction of Dr. Forte. Seen by Dr. Che in the hospital.
Hepatic cirrhosis suspected -ultrasound findings note diffusely coarsened echotexture. She does have a history of daily alcohol use. Will need outpatient FibroScan and further evaluation for possible cirrhosis. Elevated transaminases, bilirubin,
alkaline phosphatase noted. No focal hepatic lesions noted on ultrasound.
Full code
Dispo -medically stable for discharge home today. Outpatient follow-up with PCP, GI, oncology.
32-minute spent in discharge process.
Anticipated Discharge: Today
Subjective/Interval History
-
Date of Service: April 24, 2024
Patient seen and examined. Feels better other than diffuse pruritus. No complaints.
Objective Data
-
Labs:
Laboratory Results
04/24/24
07:16
WBC 15.4 H
Hgb 8.6 L
Hct 23.9 L
Plt Count 324
Sodium 144
Potassium 3.7
Chloride 110 H
Carbon Dioxide 24
BUN 4 L
Creatinine 0.4 L
Glucose 123 H
Calcium 8.6
Total Bilirubin 5.4 H
AST 126 H
ALT 254 H
Alkaline Phosphatase 359 H
Vital Signs:
Vital Signs
Temp Pulse Resp BP Pulse Ox
98.6 F 65 18 127/66 100
04/24/24 07:00 04/24/24 07:00 04/24/24 07:00 04/24/24 07:00 04/24/24 07:00
I&O
04/23/24 04/24/24 04/25/24
06:59 06:59 06:59
Intake Total 150 / 150
Balance 150 / 150
Review of Systems
-
History Source: Patient
All other systems: Reviewed and negative
[2024-04-24 12:28] VITALS: BP 139/81
== END 2024-04-24 13:02 | disposition home or self-care (01) | DRG 445 ==
LOC: 3 WEST ACU 22:28
PROVIDERS: Internal Medicine Gastroenterology; Student in an Organized Health Care Education/Training Program; ADMITTING PHYSICIAN Hospitalist; ATTENDING PHYSICIAN Hospitalist; CONSULT PHYSICIAN Internal Medicine Hematology & Oncology; EMERGENCY PHYSICIAN Emergency Medicine; FAMILY PHYSICIAN Family Medicine; OTHER PHYSICIAN Student in an Organized Health Care Education/Training Program
PROC: 0F768DZ Dilation of Left Hepatic Duct with Intraluminal Device, Via Natural or Artificial Opening Endoscopic (ICD-10-PCS; 2024-04-23)
PROC: 0F7D8DZ Dilation of Pancreatic Duct with Intraluminal Device, Via Natural or Artificial Opening Endoscopic (ICD-10-PCS; 2024-04-23)
PROC: 0F798DZ Dilation of Common Bile Duct with Intraluminal Device, Via Natural or Artificial Opening Endoscopic (ICD-10-PCS; 2024-04-23)
DX: K83.1 Obstruction of bile duct (principal); C25.2 Malignant neoplasm of tail of pancreas; C78.7 Secondary malignant neoplasm of liver and intrahepatic bile duct; K83.8 Other specified diseases of biliary tract; D64.89 Other specified anemias; E80.7 Disorder of bilirubin metabolism, unspecified; D72.829 Elevated white blood cell count, unspecified; E78.5 Hyperlipidemia, unspecified; E83.42 Hypomagnesemia; E87.6 Hypokalemia; F41.9 Anxiety disorder, unspecified; T45.1X5A Adverse effect of antineoplastic and immunosuppressive drugs, initial encounter; R11.0 Nausea; R19.7 Diarrhea, unspecified; R74.8 Abnormal levels of other serum enzymes; R01.1 Cardiac murmur, unspecified; Z79.899 Other long term (current) drug therapy; Z88.2 Allergy status to sulfonamides; Z80.7 Family history of other malignant neoplasms of lymphoid, hematopoietic and related tissues; Z80.8 Family history of malignant neoplasm of other organs or systems; Z83.2 Family history of diseases of the blood and blood-forming organs and certain disorders involving the immune mechanism
CPT/HCPCS: 74330; 76000; 76700; 80053; 82248; 82607; 82728; 82746; 83540; 83550; 83690; 83735; 85025; 85027; 85045; 93306; 93356; 96360; 99285; C1769; C1874; C2617

== ENCOUNTER 2024-12-24 19:11 | Inpatient (IN) | payer MEDICARE, BC, SELFPAY ==
[2024-12-24] VITALS (7 sets, daily range): BP systolic 113–139; BP diastolic 58–84; BMI 17.2; BMI 16.7
--- NOTE | 2024-12-24 15:08 | EDRN ---
Odell Irizarry PA in room w/ pt.
--- NOTE | 2024-12-24 15:17 | EDRN ---
Per Odell LOJA LET placed to R ACW port to numb it prior to access. Going to TT VAT RN at this time. and inform who is on.
--- NOTE | 2024-12-24 15:19 | ED.GENMED ---
History of Present Illness
General
Chief Complaint: Weakness
Source: patient and records
Time Seen by Provider: 12/24/24 15:01
History of Present Illness
History of Present Illness:
69-year-old female with past medical history of pancreatic cancer status post ERCP and common bile duct stent placement presenting to the emergency department for evaluation of increased fatigue, diminished p.o. intake to both solids and liquids,
approximate 4 pound weight loss and jaundice over the last 1 to 2 weeks. Patient was told a couple of weeks ago by her GI physician that she was likely to start to experience common bile duct stent failure and was scheduled to have a replacement
done this coming but due to the worsening symptoms was told if having a difficult time should go to the emergency department. Patient had an ultrasound of her abdomen at the [facility] this afternoon at 1 PM. She is
otherwise denying any fevers, chills, rigors, current nausea or vomiting, urinary symptoms (does note darker/brown urine), bowel changes or any other concerns. Last chemo was about 3 to 4 weeks ago. No other concerns presently.
Past History
Past History
ED Past Medical History: Cancer (Pancreatic cancer)
ED Past Surgical History: (X1)
Social History
Tobacco: Non-smoker
Alcohol: Former
Drug: None
Personal:
Living: with family
Review of Systems
Review of Systems
All Other Systems: ROS reviewed and negative except as documented in HPI and ROS
Phy Exam
Physical Exam
Physical Exam:
GENERAL: Alert , in no apparent distress
EYE: Icteric sclera
HEAD: NCAT
ENT: o/p clr, mmm.
CARDIAC: Regular rate and rhythm .
LUNGS: Clear breath sounds bilaterally, no acute respiratory distress, no wheezes/rales/rhonchi
ABDOMEN: Soft, Tender epigastrium, no r/g, no cvat
NEUROLOGICAL: Alert and oriented
SKIN: Warm and dry, skin intact. Jaundice most pronounced to the head/face and upper extremities
MUSCULOSKELETAL: No edema, well perfused.
PSYCH: Normal and appropriate interaction.
Scores
Heart Failure Risk
Heart Failure Risk Score: Not Applicable
Heart Score for Chest Pain Patients
STEMI patient?: Not applicable
Withdrawal Assessment of Alcohol
Withdrawal Assessment Completed?: Not applicable
Course
Orders/Labs/Results
Orders:
Orders
12/24/24 15:14
Lidocaine/Epinephrine/Tetracai [Let Topical Anesthetic Gel] 3 ml .ROUTE .STK-MED ONE
Lidocaine/Epinephrine/Tetracai [Let Topical Anesthetic Gel] 3 ml TOPICAL NOW STA
12/24/24 16:03
Complete Blood Count/With Diff Urgent
Comprehensive Metabolic Panel Urgent
Lipase Urgent
PTT Urgent
Prothrombin Time Urgent
12/24/24 16:38
Urinalysis Reflex To Culture Urgent
Date Specimen was Collected: 12/24/24
Time Specimen was Collected: 16:36
Urine Microscopic Reflex Cult Urgent
Urine Culture Urgent
VENUS Source: U
Specimen Description:
Date Specimen was Collected: 12/24/24
Time Specimen was Collected: 16:36
12/24/24 16:58
Piperacillin/Tazo 3.375 Gram [Zosyn] 3.375 gram in 50 ml IV NOW
Abnormal Lab Results
12/24/24 12/24/24
16:03 16:38
RBC 3.88 L 10^6/uL
(4.20-5.40)
Hgb 10.0 L g/dL
(12.0-16.0)
Hct 30.9 L %
(37.0-47.0)
MCV 79.6 L fL
(81.0-99.0)
MCH 25.8 L pg
(27.0-31.0)
MCHC 32.4 L g/dL
(33.0-37.0)
RDW 20.3 H %
(11.5-14.5)
Plt Count 473 H 10^3/uL
(130-400)
Abs Immat Gran (auto) 0.1 H 10^3/uL
(0-0.05)
Absolute Neuts (auto) 7.1 H 10^3/uL
(1.4-6.5)
Absolute Monos (auto) 0.9 H 10^3/uL
(0.1-0.6)
Immature Gran % 0.6 H %
(0-0.5)
APTT 47.4 H Sec
(23.4-35.0)
Creatinine 0.5 L mg/dL
(0.6-1.0)
Glucose 112 H mg/dl
(70-99)
Total Bilirubin 4.6 H mg/dl
(0.2-1.3)
AST 64 H U/L
(14-36)
ALT 82 H U/L
(0-35)
Alkaline Phosphatase 430 H U/L
(38-126)
Lipase 448 H U/L
(23-300)
Urine Ketones 2+ A
(Negative)
Ur Occult Blood Reflex 1+ A
(Negative)
Urine Bilirubin 2+ A
(Negative)
Urine Urobilinogen 2+ A
(Neg - 1+)
Leukocyte Esterase Rfl 1+ A
(Negative)
Urine Albumin (Reflex) 2+ A
(Neg - Trace)
12/24/24 16:03
12/24/24 16:03
Vital Signs
Initial and Last Documented VS:
Initial Vital Signs
Temp Pulse Resp BP Pulse Ox
97.9 F 69 18 137/84 99
12/24/24 14:44 12/24/24 14:44 12/24/24 14:44 12/24/24 14:44 12/24/24 14:44
Last Documented Vital Signs
Temp Pulse Resp BP Pulse Ox
97.9 F 74 16 113/58 99
12/24/24 14:44 12/24/24 15:47 12/24/24 15:47 12/24/24 15:47 12/24/24 15:47
MDM/Problems Addressed
Differential Diagnosis Includes:
Occlusion of common bile duct stent, progression of known malignancy, electrolyte deranged
MDM/Problems Addressed:
69-year-old female presenting to the emergency department for evaluation of increasing jaundice, fatigue and diminished p.o. intake over the last 1 to 2 weeks. Patient with known common bile duct stent from 8 to 9 months ago, was told that this
would likely start to fail, scheduled undergo stent replacement on but due to worsening symptoms presented today. Will recheck labs. Consult with GI. Disposition pending.
*Pulse Oximetry
Patient hypoxic: no
*Critical Care Note
Total Time (30-74mins, 75-104mins- exclusive of procedures): Not Applicable
Data Reviewed
Review of Other/Old Records Reveals: Labs, Records, Operative Reports and Discharge Summary
Patient Management
Discussion with other providers: Hospitalist and Production Broaching Machine Operator
Escalation/DeEscalation of care consider admission/obs:
Seen at bedside by the GI team. Patient did report some chills to GI despite denying this to me. Given her chills, diminished p.o. intake and increasing liver function test they do recommend patient be admitted for antibiotics, fluids/supportive
care with plan to move the date of the stent up to this coming Friday. Hospitalist team is aware and accepts patient for continued evaluation and treatment.
ED Attending Note
-
Portions of this chart may have been created with voice recognition software.� Occasional wrong word or��sound alike� substitutions may have occurred due to the inherent limitations of voice recognition software.
Discharge Plan
Departure
Patient Disposition: Admit
Date of Disposition: 12/24/24
Time of Disposition: 16:59
Presentation/result/management discussed w/ accepting MD/DO: Hospitalist
Discharge Problem:
Common bile duct obstruction, Elevated liver function tests
Prescriptions:
No Action
fluoxetine 40 mg Capsule
40 mg PO DAILY
loperamide 2 mg Capsule
2 mg PO BIDPRN PRN (Reason: diarrhea)
ondansetron HCl 8 mg Tablet
8 mg PO Q8HPRN PRN (Reason: nausea)
naltrexone 4.5 mg Capsule
4.5 mg PO HS
Patient Comments:
04/22/24: patient receives by mail. but did recall dosage
Referrals:
Geneva Hughes DO [Family Provider] -
Interventions
Interventions:
*Risk Screen - Suicide Last Done: 12/24/24 14:44
*General Assessment Last Done: 12/24/24 15:37
*Neglect/Abuse Screening Last Done: 12/24/24 14:44
*ED- Fall Risk Assessment Last Done: 12/24/24 15:37
*ED COVID-19 Vaccine History Last Done: 12/24/24 15:37
ED- Cardiac Assessment Last Done: 12/24/24 15:40
ED- Neurological Assessment Last Done: 12/24/24 15:40
ED- Pulmonary Assessment Last Done: 12/24/24 15:40
Discharge Date and Time
Print Language: KIS[place]HILI
[2024-12-24] MEDS: LET TOPICAL ANESTHETIC GEL 3 ML TOPICAL (15:20)
--- NOTE | 2024-12-24 15:47 | EDRN ---
Myra VEGA w/ GI and resident MD in room w/ pt at this time. VAT RN is awaiting LET and will come yanna 15:50.
--- NOTE | 2024-12-24 15:48 | EDRN ---
Pt states she is weak, feeling very full and not able to eat much, stools virginia line attendant and very jaundiced w/ skin pruritic. Pt trying to eat and lost 4 lbs. Pt has pain in lower abdomen described as cramping. Pt not able to drink enough. Pt taking 200 mg
of motrin BID for her pain. Pain increases w/ palpation.
--- NOTE | 2024-12-24 15:55 | EDRN ---
VAT RN Min in room w/ pt at this time to access R ACW port and draw labs.
[2024-12-24 16:14] LABS: % Basophils 0.4 % (0-2); % Eosinophils 1.4 % (0-6); % Immature Granulocytes 0.6 % (0-0.5); % Lymphocytes 24.3 % (20.5-51.1); % Monocytes 7.9 % (1.7-9.3); % Neutrophils 65.4 % (42.2-75.2); Absolute Eosinophils 0.2 10^3/uL (0-0.7); Absolute Immature Granulocytes 0.1 10^3/uL (0-0.05); Absolute Lymphocytes 2.6 10^3/uL (1.2-3.4); Absolute Monocytes 0.9 10^3/uL (0.1-0.6); Absolute Neutrophils 7.1 10^3/uL (1.4-6.5); Hematocrit 30.9 % (37.0-47.0); Mean Corp Hgb Conc. 32.4 g/dL (33.0-37.0); Mean Corpuscular Hgb 25.8 pg (27.0-31.0); Mean Corpuscular Volume 79.6 fL (81.0-99.0); Mean Platelet Volume 9.3 fL (7.4-10.4); Nucleated Red Blood Cells % 0 %; Platelet Count 473 10^3/uL (130-400); Red Blood Cell Count 3.88 10^6/uL (4.20-5.40); Red Cell Dist. Width 20.3 % (11.5-14.5); White Blood Cell Count 10.8 10^3/uL (4.8-10.8)
--- NOTE | 2024-12-24 16:17 | EDRN ---
Dr. Ackerman in room w/pt.
[2024-12-24 16:22] LABS: INR 0.95
[2024-12-24 16:23] LABS: APTT 47.4 Sec (23.4-35.0)
[2024-12-24 16:28] LABS: ALT (SGPT) 82 U/L (0-35); AST (SGOT) 64 U/L (14-36); Albumin 3.6 g/dl (3.5-5.0); Alkaline Phosphatase 430 U/L (38-126); Blood Urea Nitrogen 15 mg/dl (7-17); Calcium 9.9 mg/dl (8.4-10.2); Carbon Dioxide 25 mmol/L (22-30); Chloride 107 mmol/L (98-107); Estimated Creatinine Clearance 66 ml/min; Glucose 112 mg/dl (70-99); Lipase 448 U/L (23-300); Potassium 3.7 mmol/L (3.5-5.1); Sodium 140 mmol/L (135-145); Total Bilirubin 4.6 mg/dl (0.2-1.3); eGFR > 60.00
--- NOTE | 2024-12-24 16:29 | CON.GI ---
Addendum entered and electronically signed by Snehal Fish MD 12/24/24 17:25:
I saw and examined the patient.
The REMEDIAL MASSEUR or PA's note was reviewed and I agree with the note.
Comment: 69 yr old female with h/o pancreatic cancer with liver mets (dx on 12/2022 with pancreatic tail lesion, s/p IR liver bx liver met) on chemotherapy -prev on FOLFIRI , now on Gemzar/Abraxane , h/o malignant stenosis of distal CBD , s/p 10 mm x
4 cm covered SEMS placement 04/2024 with , followed by of oncology presenting with complaints of fatigue, jaundice, abdominal cramping, chills in the last couple of weeks. Lower abdominal cramping, no particular association with
food or bowel movements, has been having soft mushy stool on regular basis but on chemo she gets constipated. No nausea or vomiting but abdominal fullness, not able to finish her meal and lost about 5 pounds in the last couple of weeks. Also
noticed jaundice with itching, dark urine and stool acquisition professional in color, bilirubin 12/13 noted to be 2.7 and was set up for ERCP with replacement of SEMS 12/30. In the emergency room, bilirubin was noted to be 4.6 with AST of 64, ALT of 82, alk phos of
430, WBC count normal range. Abdominal ultrasound shows mild dilation of the bile and pancreatic duct, also noted is moderate left hydronephrosis.
-Metastatic pancreatic cancer, SEMS placement 04/2022: Noted increasing LFTs, jaundice with pruritus, weight loss and fatigue
Abdominal ultrasound shows mild dilation of the bile duct and pancreatic duct
Likely stent occlusion/progression of the disease
Discussed with Dr. Bolden, will admit patient to the hospital.
Okay for low-fat, low residue diet
Broad-spectrum antibiotics for possible stent occlusion-this will be done 12/28/24
Discussed with patient and daughter and they are agreeable.
Original Note:
Consultation
-
Date/Time Consultation Requested: 12/24/24 2987
Date/Time Consultation Performed: 12/24/24 8035
Requesting Provider: FREEDOM Lucas
Performing Provider: Dr. Fish/SILVIA Stein
Reason for Consultation: jaundice
Medical History
Chief Complaint / HPI
Chief Complaint: jaundice
History of Present Illness:
69 y.o female with past medical history of pancreatic cancer with liver mets (dx on 12/2022 with pancreatic tail lesion, s/p IR liver bx liver met) Followed by Dr. Forte as an outpatient currently on palliative chemo therapy. She is status post
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 a 10 mm x 4 cm covered SEMS was placed with 7 Irish by 5 cm DPPS through it into the left hepatic duct. She had normal LFTs in mid October 2024. Dr. Bolden was
contacted by her aerographer Dr. Forte on 12/13/2024 with an increase in bilirubin of 2.4. She was scheduled for an elective ERCP with to clean out her SEMS and replacement for 12/30/2024. However the patient started noticing an increase in her
jaundice, fatigue, suprapubic tenderness, pruritus and chills therefore she presented to the emergency room for further evaluation. We are asked to evaluate for her for the same. The patient states that for 1 week she has had chills with the
absence of fever, darker colored urine which was cleary in color, acquisition professional colored stools however not acholic, increase in the yellowing of her eyes. Pruritus of her back. Fatigue, decrease in appetite, nausea that has been ongoing, able to
tolerate food however with decreased appetite. The need for IV fluids at her oncologist recently. Decreased urinary output. Suprapubic abdominal discomfort improved with urination over the past week. The patient has no documented fevers. Her
bilirubin has increased from outpatient labs. We only know that she had a bilirubin of 2.4. This is now bilirubin of 4.6, AST of 64, ALT of 82, alk phos of 430, lipase is 448. She denies any vomiting, melena, hematochezia, dysphagia or
odynophagia. She does use Motrin once to twice a day for her suprapubic discomfort. She did eat today. WBC 10.8, hemoglobin 10.0, hematocrit 30.9, platelets 473. Urinalysis pending. Abdominal ultrasound performed and will be detailed below.
.
Past Medical History
Past Medical History: Other (Pancreatic cancer with liver mets, nausea 2/2 chemo)
Past Surgical History: and Other (Right chest wall port, ERCP 04/23/2024)
Social History
Tobacco: Non-Smoker
Alcohol: None
Drug: None
Personal:
Living: With Family
Family History
Family History: Reviewed & Not Pertinent
Allergies / Home Medications
Allergy/AdvReac Type Severity Reaction Status Date / Time
Sulfa (Sulfonamide Allergy Rash/HIVES Verified 12/24/24 14:44
Antibiotics)
�Medication �Instructions �Recorded
fluoxetine 40 mg capsule 40 mg PO DAILY Depression 04/22/24
loperamide 2 mg capsule 2 mg PO BIDPRN PRN diarrhea 04/22/24
naltrexone 4.5 mg capsule 4.5 mg PO HS Pain 04/22/24
ondansetron HCl 8 mg tablet 8 mg PO Q8HPRN PRN nausea 04/22/24
Review of Systems
-
All other systems: A 12 pt ROS was Negative except as stated above in HPI
Vital Signs
Temp Pulse Resp BP Pulse Ox
97.9 F 74 16 113/58 99
12/24/24 14:44 12/24/24 15:47 12/24/24 15:47 12/24/24 15:47 12/24/24 15:47
Physical Exam
Exam
General: No Apparent Distress
HEENT: Other (Scleral icterus)
Respiratory: Clear
Cardiac: Regular Rhythm
GI: Soft, Non Distended, Normal Bowel Sounds and Tender (Suprapubic tenderness)
Musculoskeletal: No Edema
Skin: Warm and Dry
Neuro: AO x 3
Psych: Calm
Results
WBC 10.8 10^3/uL (4.8-10.8) 12/24/24 16:03
Hgb 10.0 g/dL (12.0-16.0) L 12/24/24 16:03
Hct 30.9 % (37.0-47.0) L 12/24/24 16:03
MCV 79.6 fL (81.0-99.0) L 12/24/24 16:03
Plt Count 473 10^3/uL (130-400) H 12/24/24 16:03
Absolute Neuts (auto) 7.1 10^3/uL (1.4-6.5) H 12/24/24 16:03
PT 13.0 Sec (11.4-14.6) 12/24/24 16:03
INR 0.95 12/24/24 16:03
APTT 47.4 Sec (23.4-35.0) H 12/24/24 16:03
Sodium 140 mmol/L (135-145) 12/24/24 16:03
Potassium 3.7 mmol/L (3.5-5.1) 12/24/24 16:03
Chloride 107 mmol/L (98-107) 12/24/24 16:03
Carbon Dioxide 25 mmol/L (22-30) 12/24/24 16:03
BUN 15 mg/dl (7-17) 12/24/24 16:03
Creatinine 0.5 mg/dL (0.6-1.0) L 12/24/24 16:03
Calcium 9.9 mg/dl (8.4-10.2) 12/24/24 16:03
Total Bilirubin 4.6 mg/dl (0.2-1.3) H 12/24/24 16:03
AST 64 U/L (14-36) H 12/24/24 16:03
ALT 82 U/L (0-35) H 12/24/24 16:03
Alkaline Phosphatase 430 U/L (38-126) H 12/24/24 16:03
Lipase 448 U/L (23-300) H 12/24/24 16:03
Diagnostic Image Results:
Ultrasound abdomen 12/24/2024:
IMPRESSION:
1. Moderate left hydronephrosis, new as compared with previous examinations. Etiology of this is indeterminate at sonography. Given the history of pancreatic tail malignancy, progression of disease along the left retroperitoneum or metastasis is
possible. This could be further evaluated with contrast-enhanced CT or MRI.
2. Single focal hypoechoic hepatic mass most likely representing metastasis. Mild intrahepatic biliary dilation.
3. Mild gallbladder dilation. Layering biliary sludge within the gallbladder. Trace pericholecystic fluid. Negative sonographic Bravo sign.
4. Post common bile duct stenting. Mild dilation of the main pancreatic duct.
5. Pancreatic tail malignancy is not well seen at sonography as above, focal area of cystic change is identified
Prior GI Procedures:
ERCP 04/23/2024 (Dr. Bolden): - A single severe biliary stricture was found in the
lower third of the main bile duct.
- The upper third of the main bile duct, middle third
of the main bile duct, left main hepatic duct and
right main hepatic duct were severely dilated, with a
mass causing an obstruction.
- A pancreatic sphincterotomy was performed.
- One plastic stent was placed into the ventral
pancreatic duct.
- A biliary sphincterotomy was performed.
- One covered metal stent was placed into the common
bile duct.
- One plastic stent was placed into the left hepatic
duct.
Assessment / Plan
-
69 y.o female with past medical history of pancreatic cancer with liver mets (dx on 12/2022 with pancreatic tail lesion, s/p IR liver bx liver met) Followed by Dr. Forte as an outpatient currently on palliative chemo therapy. She is status post
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 a 10 mm x 4 cm covered SEMS was placed with 7 Irish by 5 cm DPPS through it into the left hepatic duct. She had normal LFTs in mid October 2024. Dr. Bolden was
contacted by her aerographer Dr. Forte on 12/13/2024 with an increase in bilirubin of 2.4. She was scheduled for an elective ERCP with to clean out her SEMS and replacement for 12/30/2024. However the patient started noticing an increase in her
jaundice, fatigue, suprapubic tenderness, pruritus and chills therefore she presented to the emergency room for further evaluation. We are asked to evaluate for her for the same. Now with worsening jaundice, bilirubin, concerns for obstructed
biliary stent. Recent chills. Suprapubic pain. Left-sided hydronephrosis seen on ultrasound imaging. Discussed with Dr. Bolden who would like patient to stay for IV antibiotics and stent replacement to be moved up.
Impression:
Obstructed biliary stent
Stage IV pancreatic adenocarcinoma
Suprapubic tenderness
Plan:
-Admit for biliary stent cleanout and exchange, will move up to Friday.
-Start IV antibiotics
-Await UA
-Trend labs
-Further recommendations to be forthcoming.
-
-
Thank you for consultation and allowing me to participate in the patient's care. Please call the manager control GI physician during the after hours with any questions or concerns.
[2024-12-24 16:50] LABS: Urine Albumin 2+ (Neg - Trace); Urine Bilirubin 2+ (Negative); Urine Character Clear (Clear); Urine Color Amber; Urine Glucose Negative (Negative); Urine Ketone 2+ (Negative); Urine Leukocyte 1+ (Negative); Urine Nitrite Negative (Negative); Urine Occult Blood 1+ (Negative); Urine Specific Gravity 1.025 (<1.030); Urine Urobilinogen 2+ (Neg - 1+)
--- NOTE | 2024-12-24 17:19 | HPS.HSE ---
Family Physician
-
Family Physician: Giselle Hughes
Chief Complaint
-
Dark color urine, nausea, fatigue, decreased appetite, lower suprapubic cramping, fullness feeling upper abdomen, pruritus to back
History of Present Illness
69-year-old female past medical history of pancreatic cancer with liver mets Dx on 12/2022 with pancreatic tail lesion, status post IR liver biopsy due to liver mets. She is followed by [facility] Dr. Forte as outpatient is currently on
palliative chemotherapy. She had post ERCP on 04/23/2024 due to severe malignant stenosis in the distal third of the bile duct where he stent was placed into the left hepatic duct. She also suffers from chronic pain, chronic nausea and depression.
On 12/13/2024 she had increase in bilirubin of 2.4 she was scheduled for elective ERCP and due for replacement of stent on 12/30/2024 however she started having increased pain, fatigue, jaundice, darker urine, light-colored stools, decreased appetite,
nausea, and some lower suprapubic cramping along with a fullness feeling in her upper abdomen relieved by heat pruritus to back and chills and came to the ER for evaluation. Her T. bili was noted to be 4.6 in the ER. She denies headache, fever,
chills, chest pain, palpitations, cough, shortness of breath, vomiting, diarrhea, urinary symptoms.
Medical History
Past Medical History
Past Medical History: Reports Other
Additional Past Medical History:
pancreatic cancer with liver mets Dx on 12/2022 with pancreatic tail lesion on palliative chemo [facility] Dr. Forte
status post IR liver biopsy due to liver mets.
Chronic pain
Depression
Chronic nausea
CBD obstruction requiring distal third bile duct stent April 2024
Past Surgical History: Reports Other
Additional Past Surgical History:
ERCP on 04/23/2024 due to severe malignant stenosis in the distal third of the bile duct where he stent was placed into the left hepatic duct.
Port-A-Cath
section
[place] teeth extraction
Social History
Tobacco: Non-smoker
Alcohol: None
Drug: None
Personal: Single
Living: Alone (But currently staying with her daughter Cecilia when she gets sick)
Employment: Retired
Family History
Family History: Not pertinent
Allergies / Home Medications
Allergies reflects when Allergies were last updated in [employer].
Home Medications with original date entered in [employer]
Allergy/Medication List:
Allergies
Allergy/AdvReac Type Severity Reaction Status Date / Time
Sulfa (Sulfonamide Allergy Rash/HIVES Verified 12/24/24 14:44
Antibiotics)
Home Medications
fluoxetine 40 mg capsule 40 mg PO DAILY Depression 04/22/24
naltrexone 4.5 mg capsule 4.5 mg PO HS Pain 04/22/24
ondansetron HCl 8 mg tablet 8 mg PO Q8HPRN PRN nausea 04/22/24
cholecalciferol (vitamin D3) 25 mcg (1,000 unit) tablet 25 mcg PO DAILY 12/24/24
morphine 10 mg/5 mL oral solution 5 mg PO Q3HPRN PRN severe pain 12/24/24
prochlorperazine maleate 10 mg tablet 10 mg PO Q6HPRN PRN nausea 12/24/24
vitamin K2 40 mcg tablet 40 mcg PO DAILY 12/24/24
zinc sulfate 50 mg zinc (220 mg) tablet 50 mg PO DAILY 12/24/24
Review of Systems
-
History Source: Patient
A 12 point ROS was completed and negative except as noted: Yes
Constitutional: Reports Fatigue; Denies Fever or Chills
EENT: Denies Sore Throat or Mouth Pain
Respiratory: Denies Cough or Trouble Breathing
Cardiac: Denies Chest Pain, Diaphoresis or Palpitations
Abdomen/GI: Reports Abdominal Pain (Epigastric and lower suprapubic), Nausea and Anorexia; Denies Vomiting, Diarrhea or Constipated
: Reports Dark Urine; Denies Dysuria, Frequency, Flank Pain, Incontinence or Difficulty Voiding
Musculoskeletal: Denies Joint Pain or Edema
Skin: Reports Itching (Pruritus to back); Denies Rash
Neurological: Reports Weakness (Generalized); Denies Dizzy or Headache
Endocrine: Reports No Symptoms
Hematologic/Lymphatic: Reports No Symptoms
Psych: Reports Calm
Physical Exam
Vital Signs
Vital Signs
Temp Pulse Resp BP Pulse Ox
97.9 F 74 16 113/58 99
12/24/24 14:44 12/24/24 15:47 12/24/24 15:47 12/24/24 15:47 12/24/24 15:47
Physical Exam
General: Comfortable and Conversant; No Fever or Chills
HEENT: NormoCephalic, Anicteric, PERRLA, [place] Conjunctivae and No Ptosis
Respiratory: Clear and Other (PowerPort present right upper chest wall); No Wheezes, Rales or Rhonchi
Cardiac: S1/S2 and Regular Rhythm; No Murmur, Rub, Gallop, Peripheral Edema or Calf Tenderness
GI: Soft, Non Distended, Normal Bowel Sounds, Tender (Epigastric area and lower suprapubic) and No Hepatosplenomegaly
Rectal: Deferred by Provider
Genito-urinary: Deferred by me
Musculoskeletal: No Clubbing, No Cyanosis and No Edema
Skin: Warm, Dry and Other (Pruritus to back with no visible rash); No Rash
Neuro: AO x 3, No Motor Deficits, Nonfocal/grossly intact, Cranial Nerves Intact, No Sensory Deficits and DTR's Intact & Symmetrical; No Slurred Speech, Facial Droop, Tremors or Sedated
Psych: Calm
Laboratory Results
-
12/24/24 16:03
12/24/24 16:03
Laboratory Results
PT 13.0 Sec (11.4-14.6) 12/24/24 16:03
INR 0.95 12/24/24 16:03
APTT 47.4 Sec (23.4-35.0) H 12/24/24 16:03
Total Bilirubin 4.6 mg/dl (0.2-1.3) H 12/24/24 16:03
AST 64 U/L (14-36) H 12/24/24 16:03
ALT 82 U/L (0-35) H 12/24/24 16:03
Alkaline Phosphatase 430 U/L (38-126) H 12/24/24 16:03
Lipase 448 U/L (23-300) H 12/24/24 16:03
Impression/Plan
-
Impression/plan:
Admit to [facility]
#Obstructed biliary stent secondary stage IV pancreatic adenocarcinoma
# S/P ERCP on 04/23/2024 due to severe malignant stenosis in the distal third of the bile duct where he stent was placed into the left hepatic duct.
- Consult GI
- IV piperacillin
- IV pain control
- cont Zofran
- Plan is for stent exchange on 12/28/2024
- Low-fat low residue
- Follow CBC, CMP, T. bili
#Pancreatic CA with liver mets Dx 12/21/2022 with tail lesion
#Status post IR liver biopsy due to liver mets
-Last chemo approximately 1 month ago, states alternates with alternative treatment vitamin C Friday 75 g, mistletoe Wednesdays, ozone therapy every other week
#Port present
Patient follows with [facility] palliative chemotherapy Dr. Forte
#Chronic pain due to pancreatic cancer
Patient on morphine 5 mg every 3 hours as needed severe pain, naltrexone 4.5 mg at bedtime
-On Zofran 8 mg every 8 hours as needed
- Will give IV Zofran every 4 hours as needed, IV prochlorperazine 10 mg every 6 as needed breakthrough nausea
#Chronic normocytic anemia
Hgb 10 baseline appears 8, MCV 79.6
#Depression
Continue fluoxetine 40 mg daily
DVT prophylaxis
Subcu Lovenox
Full code per patient with nurse Maria Isabel present at bedside
[2024-12-24 17:32] LABS: Urine Bacteria Few (Negative); Urine Calcium Oxalate Crystals Present; Urine Red Blood Cell 0-2 /HPF (0-2)
[2024-12-24] MEDS: ZOSYN 50 IV (18:02)
--- NOTE | 2024-12-24 18:15 | W.PN.UPDATE ---
Update Note
Progress Note Update
Vital Signs
Temp Pulse Resp BP Pulse Ox
97.9 F 74 16 113/58 99
12/24/24 14:44 12/24/24 15:47 12/24/24 15:47 12/24/24 15:47 12/24/24 15:47
PE
Gen: thin , pale complexion
HEENT:MICHELLE
Neck: supple
Lungs: CTA
Cor: RRR S1 S2
Abdomen: lore (Epigastric area and lower suprapubic)
GRAIN INSPECTOR: AAO3 , NFND
MS: no edema
Psych: calm , normal mood and affect
Laboratory Tests
04/24/24 12/24/24
07:16 16:03
WBC 15.4 H 10.8
Hgb 8.6 L 10.0 L
Plt Count 324 473 H
INR 0.95
Creatinine 0.5 L
eGFR > 60.00
Total Bilirubin 5.4 H 4.6 H
AST 126 H 64 H
ALT 254 H 82 H
Alkaline Phosphatase 359 H 430 H
Lipase 448 H
ASSESSMENT & PLAN
Obstructed biliary stent due to invasive IV pancreatic adenocarcinoma
04/23/24: stent placement into the left hepatic duct for severe malignant stenosis in the distal third of the bile duct
- Empiric Zosyn
- IV NS
- IV Zofran
- c/w DIRECTOR PROPERTY Pain meds
- Plan is for stent exchange on 12/28/2024
- for low fat low residue diet
- Follow CBC, CMP
- GI consulted
HX advanced Pancreatic CA with liver mets Dx 12/21/2022 with tail lesion
Port present
- follows with [facility] palliative chemotherapy Dr. Forte
Chronic pain due to pancreatic CA
- on PO morphine 5 mg every 3 hours as needed severe pain, naltrexone 4.5 mg at bedtime
- on [employer] Zofran 8 mg every 8 hours as needed
Chronic normocytic anemia
Depression
Continue fluoxetine 40 mg daily
DVT Px: SQH
Ful code
IP MS
--- NOTE | 2024-12-24 18:44 | EDRN ---
Dr. Azar in to see pt at this time.
[2024-12-24] MEDS: TYLENOL 325 MG PO (22:30)
[2024-12-25] MEDS: ZOSYN 50 IV ×4 (00:17→17:16)
--- NOTE | 2024-12-25 03:56 | TRANSFER ---
Pt admitted to 3w from ED with obstructed CBD, and pancreatic cancer. Pt ambulated to bed from stretcher unassisted. Pt oriented to room, call mcmillan within reach, plan of care on going.
[2024-12-25 07:47] VITALS: BP 130/64
[2024-12-25] MEDS: VITAMIN D3 (cholecalciferol) 25 MCG PO (08:32)
[2024-12-25] MEDS: PROZAC 40 MG PO (08:35)
--- NOTE | 2024-12-25 09:17 | W.PN.GI.CBS2 ---
Today's Communication / Plan
-
Plan
-Metastatic pancreatic cancer, SEMS placement 04/2022: Noted increasing LFTs, jaundice with pruritus, weight loss and fatigue
Abdominal ultrasound shows mild dilation of the bile duct and pancreatic duct
Likely stent occlusion/progression of the disease
Await labs from this morning.
Tolerating low-fat, low residue diet
Broad-spectrum antibiotics-on Zosyn for possible stent occlusion-this will be done 12/28/24
Will follow.
Assessment / Plan
-
69 y.o female with past medical history of pancreatic cancer with liver mets (dx on 12/2022 with pancreatic tail lesion, s/p IR liver bx liver met) Followed by Dr. Forte as an outpatient currently on palliative chemo therapy. She is status post
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 a 10 mm x 4 cm covered SEMS was placed with 7 [place] by 5 cm DPPS through it into the left hepatic duct. She had normal LFTs in mid October 2024. Dr. Bolden was
contacted by her narrow gauge engineer Dr. Forte on 12/13/2024 with an increase in bilirubin of 2.4. She was scheduled for an elective ERCP with to clean out her SEMS and replacement for 12/30/2024. However the patient started noticing an increase in her
jaundice, fatigue, suprapubic tenderness, pruritus and chills therefore she presented to the emergency room for further evaluation. We are asked to evaluate for her for the same. Now with worsening jaundice, bilirubin, concerns for obstructed
biliary stent. Recent chills. Suprapubic pain. Left-sided hydronephrosis seen on ultrasound imaging. Discussed with Dr. Bolden who would like patient to stay for IV antibiotics and stent replacement to be moved up.
Impression:
Obstructed biliary stent
Stage IV pancreatic adenocarcinoma
Suprapubic tenderness
Plan
-Metastatic pancreatic cancer, SEMS placement 04/2022: Noted increasing LFTs, jaundice with pruritus, weight loss and fatigue
Abdominal ultrasound shows mild dilation of the bile duct and pancreatic duct
Likely stent occlusion/progression of the disease
Await labs from this morning.
Tolerating low-fat, low residue diet
Broad-spectrum antibiotics-on Zosyn for possible stent occlusion-this will be done 12/28/24
Will follow.
Subjective
Subjective
Date of Service: December 25, 2024
Patient does report discomfort in the abdomen, took Tylenol last night, is currently on low residue diet and tolerating it. No fevers or chills. Had bowel movement yesterday but not this morning.
Objective
Data Reviewed
Laboratory Data:
Laboratory Results
PT 13.0 Sec (11.4-14.6) 12/24/24 16:03
INR 0.95 12/24/24 16:03
APTT 47.4 Sec (23.4-35.0) H 12/24/24 16:03
Total Bilirubin 4.6 mg/dl (0.2-1.3) H 12/24/24 16:03
AST 64 U/L (14-36) H 12/24/24 16:03
ALT 82 U/L (0-35) H 12/24/24 16:03
Alkaline Phosphatase 430 U/L (38-126) H 12/24/24 16:03
Lipase 448 U/L (23-300) H 12/24/24 16:03
Vital Signs and I&O:
Vital Signs
Temp Pulse Resp BP Pulse Ox
98.7 F 62 14 130/64 99
12/25/24 07:47 12/25/24 07:47 12/25/24 07:47 12/25/24 07:47 12/25/24 07:47
I&O
12/24/24 12/25/24 12/26/24
06:59 06:59 06:59
Intake Total 480 / 480
Balance 480 / 480
Physical Exam
Physical Exam
GI: Soft, Non Distended and Tender (Discomfort on palpation in the upper abdomen)
[2024-12-25 09:21] LABS: % Basophils 0.3 % (0-2); % Eosinophils 1.4 % (0-6); % Immature Granulocytes 0.4 % (0-0.5); % Lymphocytes 20.5 % (20.5-51.1); % Monocytes 7.9 % (1.7-9.3); % Neutrophils 69.5 % (42.2-75.2); Absolute Eosinophils 0.2 10^3/uL (0-0.7); Absolute Immature Granulocytes 0.1 10^3/uL (0-0.05); Absolute Lymphocytes 2.4 10^3/uL (1.2-3.4); Absolute Monocytes 0.9 10^3/uL (0.1-0.6); Hematocrit 31.9 % (37.0-47.0); Hemoglobin 10.2 g/dL (12.0-16.0); Mean Corpuscular Hgb 25.8 pg (27.0-31.0); Mean Corpuscular Volume 80.8 fL (81.0-99.0); Mean Platelet Volume 9.3 fL (7.4-10.4); Nucleated Red Blood Cells % 0 %; Platelet Count 476 10^3/uL (130-400); Red Blood Cell Count 3.95 10^6/uL (4.20-5.40); Red Cell Dist. Width 20.5 % (11.5-14.5); White Blood Cell Count 11.5 10^3/uL (4.8-10.8)
[2024-12-25 09:47] LABS: ALT (SGPT) 77 U/L (0-35); AST (SGOT) 68 U/L (14-36); Albumin 3.5 g/dl (3.5-5.0); Alkaline Phosphatase 405 U/L (38-126); Blood Urea Nitrogen 12 mg/dl (7-17); Calcium 9.6 mg/dl (8.4-10.2); Carbon Dioxide 25 mmol/L (22-30); Chloride 109 mmol/L (98-107); Estimated Creatinine Clearance 63 ml/min; Glucose 153 mg/dl (70-99); Potassium 3.7 mmol/L (3.5-5.1); Sodium 141 mmol/L (135-145); Total Bilirubin 4.4 mg/dl (0.2-1.3); Total Protein 6.9 g/dl (6.3-8.2); eGFR > 60.00
--- NOTE | 2024-12-25 11:50 | W.PN.HOSP.TC ---
Today's Communication/Plan
-
IV antibiotics. GI consult.
Assessment / Plan
Assessment / Plan
Physical exam:
General: Acute on chronically ill
HEENT: Normocephalic, Atraumatic and dry mucous Membranes, icterus
Respiratory: Clear to Auscultation; Negative Wheezes, Rales or Rhonchi
Cardiac: Regular Rhythm and S1/S2
GI: Soft, tender and Nondistended
Musculoskeletal: No Clubbing, No Cyanosis and No Edema
Neuro: Awake, Alert and Oriented, no neurological deficit
Psych: Calm
A/P:
Abdominal pain and elevated LFTs:
Etiology likely advancing metastatic pancreatic cancer + obstructed biliary stent
Tolerating diet
Continue antibiotics, IV Zosyn
Trend LFTs and temperature curve
Ultrasound abdomen shows mild dilation of the bile duct and pancreatic duct
GI consult appreciated
Plan for ERCP on 12/28
Pancreatic cancer with liver mets and pancreatic lesions:
Follow-up with oncology as outpatient after acute illness
Constipation:
Start bowel regimen today
Left hydronephrosis:
Renal function stable and good urine output
Will either repeat ultrasound dedicated to renal and ureters or CT for reevaluation
Chronic pain, narcotic dependence:
Continue chronic narcotics
Bowel regimen as above
Anemia:
No signs of bleeding
Continue to monitor hemoglobin
Severe protein calorie malnutrition:
Nutrition eval at some point
Monitor and encourage oral intake
Depression:
Continue antidepressant
DVT prophylaxis:
Lovenox SQ
CODE STATUS:
Full code
Total time spent on today's encounter was 52 minutes which included time spent in counseling the patient/family regarding diagnosis and treatment plan as listed above, goals of care, and symptom management. Case was discussed with nursing staff,
specialists, and care coordinators/case management. All labs and imaging personally reviewed by me. Remainder the time spent in detailed review of previous records, lab data, imaging, and other medical provider documentation.
Anticipated Discharge: > 48 hours
Subjective/Interval History
-
Date of Service: December 25, 2024
Patient does have abdominal pain, also some constipation, and complaints of nausea on and off. No vomiting. Afebrile
Objective Data
-
Labs:
Laboratory Results
12/25/24
09:10
WBC 11.5 H
Hgb 10.2 L
Hct 31.9 L
Plt Count 476 H
Sodium 141
Potassium 3.7
Chloride 109 H
Carbon Dioxide 25
BUN 12
Creatinine 0.5 L
Glucose 153 H
Calcium 9.6
Total Bilirubin 4.4 H
AST 68 H
ALT 77 H
Alkaline Phosphatase 405 H
Vital Signs:
Vital Signs
Temp Pulse Resp BP Pulse Ox
98.7 F 62 14 130/64 99
12/25/24 07:47 12/25/24 07:47 12/25/24 07:47 12/25/24 07:47 12/25/24 07:47
I&O
12/24/24 12/25/24 12/26/24
06:59 06:59 06:59
Intake Total 480 / 480
Balance 480 / 480
[2024-12-25] MEDS: COLACE 100 MG PO ×2 (11:54→20:24)
[2024-12-25 13:45] VITALS: BMI 16.7
[2024-12-25] MEDS: NON-FORMULARY ITEM PO (15:35)
[2024-12-25 15:49] VITALS: BP 139/83
[2024-12-25] MEDS: LOVENOX 30 MG SC (17:16)
[2024-12-25] MEDS: NON-FORMULARY ITEM 1 MG PO (20:23)
[2024-12-25] MEDS: TYLENOL 325 MG PO (20:31)
[2024-12-25 23:41] VITALS: BP 119/74
[2024-12-26] MEDS: ZOSYN 50 IV ×5 (01:10→23:02)
[2024-12-26 06:13] LABS: % Basophils 0.4 % (0-2); % Immature Granulocytes 0.4 % (0-0.5); % Lymphocytes 29.5 % (20.5-51.1); % Monocytes 10.2 % (1.7-9.3); % Neutrophils 57.5 % (42.2-75.2); Absolute Eosinophils 0.2 10^3/uL (0-0.7); Absolute Lymphocytes 2.8 10^3/uL (1.2-3.4); Absolute Neutrophils 5.4 10^3/uL (1.4-6.5); Hematocrit 30.2 % (37.0-47.0); Hemoglobin 9.9 g/dL (12.0-16.0); Mean Corp Hgb Conc. 32.8 g/dL (33.0-37.0); Mean Corpuscular Hgb 25.9 pg (27.0-31.0); Mean Corpuscular Volume 79.1 fL (81.0-99.0); Mean Platelet Volume 9.5 fL (7.4-10.4); Nucleated Red Blood Cells % 0 %; Platelet Count 455 10^3/uL (130-400); Red Blood Cell Count 3.82 10^6/uL (4.20-5.40); Red Cell Dist. Width 21.2 % (11.5-14.5); White Blood Cell Count 9.4 10^3/uL (4.8-10.8)
[2024-12-26 06:26] LABS: INR 1.01; PT 13.6 Sec (11.4-14.6)
[2024-12-26 06:46] LABS: ALT (SGPT) 87 U/L (0-35); AST (SGOT) 85 U/L (14-36); Albumin 3.3 g/dl (3.5-5.0); Alkaline Phosphatase 391 U/L (38-126); Blood Urea Nitrogen 8 mg/dl (7-17); Calcium 9.5 mg/dl (8.4-10.2); Carbon Dioxide 26 mmol/L (22-30); Chloride 111 mmol/L (98-107); Estimated Creatinine Clearance 63 ml/min; Glucose 121 mg/dl (70-99); Potassium 3.7 mmol/L (3.5-5.1); Sodium 141 mmol/L (135-145); Total Protein 6.6 g/dl (6.3-8.2); eGFR > 60.00
[2024-12-26 07:14] VITALS: BP 116/59
[2024-12-26] MEDS: VITAMIN D3 (cholecalciferol) 25 MCG PO (08:01)
[2024-12-26] MEDS: PROZAC 40 MG PO (08:01)
[2024-12-26] MEDS: COLACE PO (08:02)
--- NOTE | 2024-12-26 09:57 | W.PN.GI.CBS2 ---
Today's Communication / Plan
-
-Metastatic pancreatic cancer, SEMS placement 04/2022: Noted increasing LFTs, jaundice with pruritus, weight loss and fatigue
Abdominal ultrasound shows mild dilation of the bile duct and pancreatic duct
Likely stent occlusion/progression of the disease
LFTs seems to be stable, no further elevation total bilirubin and Trending down slightly.
Tolerating low-fat, low residue diet
Broad-spectrum antibiotics-on Zosyn for possible stent occlusion-for ERCP again this admission, this will be done 12/28/24
Will follow.
Assessment / Plan
-
69 y.o female with past medical history of pancreatic cancer with liver mets (dx on 12/2022 with pancreatic tail lesion, s/p IR liver bx liver met) Followed by Dr. Forte as an outpatient currently on palliative chemo therapy. She is status post
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 a 10 mm x 4 cm covered SEMS was placed with 7 Mongolian by 5 cm DPPS through it into the left hepatic duct. She had normal LFTs in mid October 2024. Dr. Bolden was
contacted by her lathe turner Dr. Forte on 12/13/2024 with an increase in bilirubin of 2.4. She was scheduled for an elective ERCP with to clean out her SEMS and replacement for 12/30/2024. However the patient started noticing an increase in her
jaundice, fatigue, suprapubic tenderness, pruritus and chills therefore she presented to the emergency room for further evaluation. We are asked to evaluate for her for the same. Now with worsening jaundice, bilirubin, concerns for obstructed
biliary stent. Recent chills. Suprapubic pain. Left-sided hydronephrosis seen on ultrasound imaging. Discussed with Dr. oBlden who would like patient to stay for IV antibiotics and stent replacement to be moved up.
Impression:
Obstructed biliary stent
Stage IV pancreatic adenocarcinoma
Suprapubic tenderness
Plan
-Metastatic pancreatic cancer, SEMS placement 04/2022: Noted increasing LFTs, jaundice with pruritus, weight loss and fatigue
Abdominal ultrasound shows mild dilation of the bile duct and pancreatic duct
Likely stent occlusion/progression of the disease
LFTs seems to be stable, no further elevation total bilirubin and Trending down slightly.
Tolerating low-fat, low residue diet
Broad-spectrum antibiotics-on Zosyn for possible stent occlusion-for ERCP again this admission, this will be done 12/28/24
Will follow.
Subjective
Subjective
Date of Service: December 26, 2024
Patient continues to have some discomfort in the abdomen but not significant. Had a bowel movement yesterday. No nausea or vomiting but feels full. No fevers or chills.
Objective
Data Reviewed
Laboratory Data:
Laboratory Results
12/26/24 05:48
12/26/24 05:48
Laboratory Results
PT 13.6 Sec (11.4-14.6) 12/26/24 05:48
INR 1.01 12/26/24 05:48
APTT 47.4 Sec (23.4-35.0) H 12/24/24 16:03
Total Bilirubin 4.0 mg/dl (0.2-1.3) H 12/26/24 05:48
AST 85 U/L (14-36) H 12/26/24 05:48
ALT 87 U/L (0-35) H 12/26/24 05:48
Alkaline Phosphatase 391 U/L (38-126) H 12/26/24 05:48
Lipase 448 U/L (23-300) H 12/24/24 16:03
Vital Signs and I&O:
Vital Signs
Temp Pulse Resp BP Pulse Ox
98.9 F 64 14 116/59 98
12/26/24 07:14 12/26/24 07:14 12/26/24 07:14 12/26/24 07:14 12/26/24 07:14
I&O
12/25/24 12/26/24 12/27/24
06:59 06:59 06:59
Intake Total 480 / 480 1440 / 1440
Balance 480 / 480 1440 / 1440
Physical Exam
Physical Exam
GI: Soft and Tender (Mild discomfort on palpation in the upper abdomen without guarding or rigidity)
--- NOTE | 2024-12-26 11:34 | W.PN.HOSP.TC ---
Today's Communication/Plan
-
Antibiotics. ERCP planning
Assessment / Plan
Assessment / Plan
Physical exam:
General: Acute on chronically ill
HEENT: Normocephalic, Atraumatic and dry mucous Membranes, icterus
Respiratory: Clear to Auscultation; Negative Wheezes, Rales or Rhonchi
Cardiac: Regular Rhythm and S1/S2
GI: Soft, tender and Nondistended
Musculoskeletal: No Clubbing, No Cyanosis and No Edema
Neuro: Awake, Alert and Oriented, no neurological deficit
Psych: Calm
A/P:
Abdominal pain and elevated LFTs:
Etiology likely advancing metastatic pancreatic cancer + obstructed biliary stent
Tolerating diet
Continue antibiotics, IV Zosyn
Trend LFTs and temperature curve
Ultrasound abdomen shows mild dilation of the bile duct and pancreatic duct
GI consult appreciated
Plan for ERCP on 12/28
Pancreatic cancer with liver mets and pancreatic lesions:
Follow-up with oncology as outpatient after acute illness
Constipation:
Start bowel regimen today
Left hydronephrosis:
Renal function stable and good urine output
Will repeat ultrasound dedicated to renal and ureters today
Chronic pain, narcotic dependence:
Continue chronic narcotics
Bowel regimen as above
Anemia:
No signs of bleeding
Continue to monitor hemoglobin
Severe protein calorie malnutrition:
Nutrition eval at some point
Monitor and encourage oral intake
Depression:
Continue antidepressant
DVT prophylaxis:
Lovenox SQ
CODE STATUS:
Full code
Total time spent on today's encounter was 52 minutes which included time spent in counseling the patient/family regarding diagnosis and treatment plan as listed above, goals of care, and symptom management. Case was discussed with nursing staff,
specialists, and care coordinators/case management. All labs and imaging personally reviewed by me. Remainder the time spent in detailed review of previous records, lab data, imaging, and other medical provider documentation.
Anticipated Discharge: > 48 hours
Subjective/Interval History
-
Date of Service: December 26, 2024
Complaints of mild abd cramp, no nausea or vomiting. No cp or sob. Afebrile
Objective Data
-
Labs:
Laboratory Results
12/26/24
05:48
WBC 9.4
Hgb 9.9 L
Hct 30.2 L
Plt Count 455 H
PT 13.6
INR 1.01
Sodium 141
Potassium 3.7
Chloride 111 H
Carbon Dioxide 26
BUN 8
Creatinine 0.5 L
Glucose 121 H
Calcium 9.5
Total Bilirubin 4.0 H
AST 85 H
ALT 87 H
Alkaline Phosphatase 391 H
Vital Signs:
Vital Signs
Temp Pulse Resp BP Pulse Ox
98.9 F 64 14 116/59 95
12/26/24 07:14 12/26/24 07:14 12/26/24 07:14 12/26/24 07:14 12/26/24 10:05
I&O
12/25/24 12/26/24 12/27/24
06:59 06:59 06:59
Intake Total 480 / 480 1440 / 1440
Balance 480 / 480 1440 / 1440
--- NOTE | 2024-12-26 12:07 | CM ---
Met with patient at bedside; initial assessment completed
IMM on chart; signed 12/24 @1634
Pharmacy verified: [facility] @ [address], [place], [place]
Primary Contact/Daughter, Cecilia Recinos, # [phone]
Patient is currently staying with her daughter/family, Cecilia; one floor home in [place], [place]; home [place]; 1 step to enter; patient sharing bath; tub w/shower, grab bar
NO history of SNF or Home Health utilization history
Independent with personal care; no device with ambulation
Daughter will transport home
Plan: Discharge to home when medically stable; no needs anticipated
[2024-12-26] MEDS: FLUSH (NSS) 1 FLUSH IV ×2 (12:12→17:58)
[2024-12-26] MEDS: TYLENOL 325 MG PO ×2 (12:13→23:02)
[2024-12-26 15:01] VITALS: BP 109/62
[2024-12-26] MEDS: LOVENOX 30 MG SC (17:05)
[2024-12-26] MEDS: COLACE 100 MG PO (22:10)
[2024-12-26] MEDS: NON-FORMULARY ITEM 4.5 MG PO (22:11)
[2024-12-26 23:00] VITALS: BP 122/64
[2024-12-26] MEDS: BENADRYL 25 MG PO (23:33)
[2024-12-27] MEDS: ZOSYN 50 IV ×3 (05:31→17:17)
[2024-12-27 05:34] LABS: % Basophils 0.5 % (0-2); % Eosinophils 2.5 % (0-6); % Immature Granulocytes 0.2 % (0-0.5); % Lymphocytes 31.1 % (20.5-51.1); % Monocytes 10.4 % (1.7-9.3); % Neutrophils 55.3 % (42.2-75.2); Absolute Eosinophils 0.2 10^3/uL (0-0.7); Absolute Lymphocytes 2.7 10^3/uL (1.2-3.4); Absolute Monocytes 0.9 10^3/uL (0.1-0.6); Absolute Neutrophils 4.9 10^3/uL (1.4-6.5); Hemoglobin 9.9 g/dL (12.0-16.0); Mean Corp Hgb Conc. 31.9 g/dL (33.0-37.0); Mean Corpuscular Volume 81.4 fL (81.0-99.0); Mean Platelet Volume 9.1 fL (7.4-10.4); Nucleated Red Blood Cells % 0 %; Platelet Count 382 10^3/uL (130-400); Red Blood Cell Count 3.81 10^6/uL (4.20-5.40); Red Cell Dist. Width 20.9 % (11.5-14.5); White Blood Cell Count 8.8 10^3/uL (4.8-10.8)
[2024-12-27 06:00] LABS: ALT (SGPT) 71 U/L (0-35); AST (SGOT) 62 U/L (14-36); Albumin 3.1 g/dl (3.5-5.0); Alkaline Phosphatase 320 U/L (38-126); Blood Urea Nitrogen 7 mg/dl (7-17); Calcium 9.6 mg/dl (8.4-10.2); Carbon Dioxide 28 mmol/L (22-30); Chloride 109 mmol/L (98-107); Estimated Creatinine Clearance 63 ml/min; Glucose 116 mg/dl (70-99); Potassium 3.5 mmol/L (3.5-5.1); Sodium 141 mmol/L (135-145); Total Bilirubin 3.3 mg/dl (0.2-1.3); Total Protein 6.4 g/dl (6.3-8.2); eGFR > 60.00
--- NOTE | 2024-12-27 06:28 | W.PN.HOSP.TC ---
Today's Communication/Plan
-
diet/npo/ERCP as per GI
start low dose gabapentin for likely malignancy vs bilirubin related pruritus
pain control
monitor LFTs
Assessment / Plan
Assessment / Plan
Physical exam:
General: Appears chronically ill. Cachectic
HEENT: Normocephalic, Atraumatic and dry mucous Membranes, icterus
Respiratory: Clear to Auscultation; Negative Wheezes, Rales or Rhonchi
Cardiac: Regular Rhythm and S1/S2
GI: Soft, tender and Nondistended
Musculoskeletal: No Clubbing, No Cyanosis and No Edema
Neuro: Awake, Alert and Oriented, no neurological deficit
Psych: Calm
A/P:69F hx metastatic pancreatic ca here for evaluation abd pain/jaundice/transaminitis likely CBD stent obstruction vs advancing metastatic pancreatic cancer
Abdominal pain and elevated LFTs:
Etiology likely advancing metastatic pancreatic cancer + obstructed biliary stent
Tolerating diet
Continue antibiotics, IV Zosyn
Trend LFTs and temperature curve
Ultrasound abdomen shows mild dilation of the bile duct and pancreatic duct
GI consult appreciated
Plan for ERCP on 12/28
Pancreatic cancer with liver mets and pancreatic lesions:
Follow-up with oncology as outpatient after acute illness
Pruritus likely 2/2 malignancy/bilirubin elevation
start low dose gabapentin
Constipation:
Start bowel regimen today
Left hydronephrosis:
Renal function stable and good urine output
renal US appreciated
Chronic pain, narcotic dependence:
Continue chronic narcotics
Bowel regimen as above
Anemia:
No signs of bleeding
Continue to monitor hemoglobin
Severe protein calorie malnutrition:
Nutrition eval at some point
Monitor and encourage oral intake
Depression:
Continue antidepressant
DVT prophylaxis:
Lovenox SQ
CODE STATUS:
Full code
discussed with patient and patient's daughter Cecilia
I spent a total of 50 minutes with the patient or on the floor. More than 50% of this time involved counseling and coordination of care. .
Anticipated Discharge: 24 - 48 hours
Subjective/Interval History
-
Date of Service: December 27, 2024
No acute distress, sitting up comfortably in bed. Poor oral intake/appetite. Endorses persistent abd discomfort. Patient also reporting pruritus. Daughter Cecilia present during evaluation.
Objective Data
-
Labs:
Laboratory Results
12/27/24
05:22
WBC 8.8
Hgb 9.9 L
Hct 31.0 L
Plt Count 382
Sodium 141
Potassium 3.5
Chloride 109 H
Carbon Dioxide 28
BUN 7
Creatinine 0.5 L
Glucose 116 H
Calcium 9.6
Total Bilirubin 3.3 H
AST 62 H
ALT 71 H
Alkaline Phosphatase 320 H
Vital Signs:
Vital Signs
Temp Pulse Resp BP Pulse Ox
99.1 F 64 18 122/64 99
12/26/24 23:00 12/26/24 23:00 12/26/24 23:00 12/26/24 23:00 12/26/24 23:00
I&O
12/25/24 12/26/24 12/27/24
06:59 06:59 06:59
Intake Total 480 / 480 1440 / 1440 1200 / 1200
Balance 480 / 480 1440 / 1440 1200 / 1200
[2024-12-27 07:00] VITALS: BP 114/67
[2024-12-27] MEDS: COLACE PO (08:23)
[2024-12-27] MEDS: VITAMIN D3 (cholecalciferol) 25 MCG PO (08:24)
[2024-12-27] MEDS: PROZAC 40 MG PO (08:24)
--- NOTE | 2024-12-27 10:09 | W.PN.GI.CBS2 ---
Today's Communication / Plan
-
Plan
-Metastatic pancreatic cancer, SEMS placement 04/2022: Noted increasing LFTs, jaundice with pruritus, weight loss and fatigue
Abdominal ultrasound shows mild dilation of the bile duct and pancreatic duct
Likely stent occlusion/progression of the disease
LFTs trending down
Tolerating low-fat, low residue diet
Broad-spectrum antibiotics-on Zosyn for possible stent occlusion-for ERCP again this admission, this will be done 12/28/24
N.p.o. past midnight. Will follow.
Assessment / Plan
-
69 y.o female with past medical history of pancreatic cancer with liver mets (dx on 12/2022 with pancreatic tail lesion, s/p IR liver bx liver met) Followed by Dr. Forte as an outpatient currently on palliative chemo therapy. She is status post
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 a 10 mm x 4 cm covered SEMS was placed with 7 Norwegian by 5 cm DPPS through it into the left hepatic duct. She had normal LFTs in mid October 2024. Dr. Bolden was
contacted by her survey research teacher Dr. Forte on 12/13/2024 with an increase in bilirubin of 2.4. She was scheduled for an elective ERCP with to clean out her SEMS and replacement for 12/30/2024. However the patient started noticing an increase in her
jaundice, fatigue, suprapubic tenderness, pruritus and chills therefore she presented to the emergency room for further evaluation. We are asked to evaluate for her for the same. Now with worsening jaundice, bilirubin, concerns for obstructed
biliary stent. Recent chills. Suprapubic pain. Left-sided hydronephrosis seen on ultrasound imaging. Discussed with Dr. Bolden who would like patient to stay for IV antibiotics and stent replacement to be moved up.
Impression:
Obstructed biliary stent
Stage IV pancreatic adenocarcinoma
Suprapubic tenderness
Plan
-Metastatic pancreatic cancer, SEMS placement 04/2022: Noted increasing LFTs, jaundice with pruritus, weight loss and fatigue
Abdominal ultrasound shows mild dilation of the bile duct and pancreatic duct
Likely stent occlusion/progression of the disease
LFTs trending down
Tolerating low-fat, low residue diet
Broad-spectrum antibiotics-on Zosyn for possible stent occlusion-for ERCP again this admission, this will be done 12/28/24
N.p.o. past midnight. Will follow.
Subjective
Subjective
Date of Service: December 27, 2024
Patient continues to have discomfort in upper abdomen, no nausea or vomiting. She did have bowel movement yesterday. On low residue and low-fat diet.
Objective
Data Reviewed
Laboratory Data:
Laboratory Results
12/27/24 05:22
12/27/24 05:22
Laboratory Results
PT 13.6 Sec (11.4-14.6) 12/26/24 05:48
INR 1.01 12/26/24 05:48
APTT 47.4 Sec (23.4-35.0) H 12/24/24 16:03
Total Bilirubin 3.3 mg/dl (0.2-1.3) H 12/27/24 05:22
AST 62 U/L (14-36) H 12/27/24 05:22
ALT 71 U/L (0-35) H 12/27/24 05:22
Alkaline Phosphatase 320 U/L (38-126) H 12/27/24 05:22
Lipase 448 U/L (23-300) H 12/24/24 16:03
Vital Signs and I&O:
Vital Signs
Temp Pulse Resp BP Pulse Ox
98.7 F 61 18 114/67 100
12/27/24 07:00 12/27/24 07:00 12/27/24 07:00 12/27/24 07:00 12/27/24 07:00
I&O
12/26/24 12/27/24 12/28/24
06:59 06:59 06:59
Intake Total 1440 / 1440 1200 / 1200
Balance 1440 / 1440 1200 / 1200
Physical Exam
Physical Exam
GI: Soft, Non Distended and Tender (Discomfort on palpation in the upper abdomen)
[2024-12-27] MEDS: TYLENOL 325 MG PO ×2 (12:50→20:14)
[2024-12-27 15:00] VITALS: BP 122/75
[2024-12-27] MEDS: NEURONTIN 100 MG PO ×2 (15:55→22:24)
[2024-12-27] MEDS: LOVENOX 30 MG SC (17:17)
[2024-12-27] MEDS: BENADRYL 25 MG PO (20:14)
[2024-12-27] MEDS: COLACE 100 MG PO (20:18)
[2024-12-27] MEDS: NON-FORMULARY ITEM 4.5 MG PO (22:24)
[2024-12-27 23:30] VITALS: BP 133/75
[2024-12-28] VITALS (7 sets, daily range): BP systolic 12–151; BP diastolic 56–76; BMI 16.8
[2024-12-28] MEDS: ZOSYN 50 IV ×5 (00:05→23:19)
[2024-12-28 05:32] LABS: % Basophils 0.8 % (0-2); % Eosinophils 3.2 % (0-6); % Immature Granulocytes 0.4 % (0-0.5); % Lymphocytes 33.2 % (20.5-51.1); % Monocytes 10.8 % (1.7-9.3); % Neutrophils 51.6 % (42.2-75.2); Absolute Basophils 0.1 10^3/uL (0-0.2); Absolute Eosinophils 0.2 10^3/uL (0-0.7); Absolute Lymphocytes 2.5 10^3/uL (1.2-3.4); Absolute Monocytes 0.8 10^3/uL (0.1-0.6); Absolute Neutrophils 3.8 10^3/uL (1.4-6.5); Hematocrit 28.6 % (37.0-47.0); Hemoglobin 9.2 g/dL (12.0-16.0); Mean Corp Hgb Conc. 32.2 g/dL (33.0-37.0); Mean Corpuscular Volume 80.8 fL (81.0-99.0); Mean Platelet Volume 9.7 fL (7.4-10.4); Nucleated Red Blood Cells % 0 %; Platelet Count 376 10^3/uL (130-400); Red Blood Cell Count 3.54 10^6/uL (4.20-5.40); Red Cell Dist. Width 21.6 % (11.5-14.5); White Blood Cell Count 7.4 10^3/uL (4.8-10.8)
[2024-12-28 05:57] LABS: ALT (SGPT) 59 U/L (0-35); AST (SGOT) 46 U/L (14-36); Albumin 3.1 g/dl (3.5-5.0); Alkaline Phosphatase 295 U/L (38-126); Blood Urea Nitrogen 10 mg/dl (7-17); Calcium 9.2 mg/dl (8.4-10.2); Carbon Dioxide 28 mmol/L (22-30); Chloride 110 mmol/L (98-107); Estimated Creatinine Clearance 63 ml/min; Glucose 106 mg/dl (70-99); Magnesium 1.6 mg/dl (1.6-2.3); Potassium 3.3 mmol/L (3.5-5.1); Sodium 142 mmol/L (135-145); Total Bilirubin 2.7 mg/dl (0.2-1.3); Total Protein 6.1 g/dl (6.3-8.2); eGFR > 60.00
--- NOTE | 2024-12-28 07:50 | W.PN.HOSP.TC ---
Today's Communication/Plan
-
diet as per GI
monitor LFT
gabapentin bedtime
likely discharge tomorrow.
Assessment / Plan
Assessment / Plan
Physical exam:
General: Appears chronically ill. Cachectic
HEENT: Normocephalic, Atraumatic and dry mucous Membranes, icterus
Respiratory: Clear to Auscultation; Negative Wheezes, Rales or Rhonchi
Cardiac: Regular Rhythm and S1/S2
GI: Soft, tender and Nondistended
Musculoskeletal: No Clubbing, No Cyanosis and No Edema
Neuro: Awake, Alert and Oriented, no neurological deficit
Psych: Calm
A/P:69F hx metastatic pancreatic ca here for evaluation abd pain/jaundice/transaminitis likely CBD stent obstruction vs advancing metastatic pancreatic cancer
Abdominal pain and elevated LFTs:
Etiology likely advancing metastatic pancreatic cancer + obstructed biliary stent
Tolerating diet
Continue antibiotics, IV Zosyn
Trend LFTs and temperature curve
Ultrasound abdomen shows mild dilation of the bile duct and pancreatic duct
GI consult appreciated ERCP performed 12/28
Pancreatic cancer with liver mets and pancreatic lesions:
Follow-up with oncology as outpatient after acute illness
Pruritus likely 2/2 malignancy/bilirubin elevation
gabapentin 300 mg HS
Constipation:
bowel regimen
Left hydronephrosis:
Renal function stable and good urine output
renal US appreciated
Chronic pain, narcotic dependence:
Continue chronic narcotics
Bowel regimen as above
Anemia:
No signs of bleeding
Continue to monitor hemoglobin
Severe protein calorie malnutrition:
Nutrition eval at some point
Monitor and encourage oral intake
Depression:
Continue antidepressant
DVT prophylaxis:
Lovenox SQ
CODE STATUS:
Full code
I spent a total of 45 minutes with the patient or on the floor. More than 50% of this time involved counseling and coordination of care. .
Anticipated Discharge: Within 24 hours
Subjective/Interval History
-
Date of Service: December 28, 2024
no acute distress. Reports significant improvement in pruritus following start of gabapentin. Reports improvement in abd discomfort since ERCP.
Objective Data
-
Labs:
Laboratory Results
12/28/24
05:08
WBC 7.4
Hgb 9.2 L
Hct 28.6 L
Plt Count 376
Sodium 142
Potassium 3.3 L
Chloride 110 H
Carbon Dioxide 28
BUN 10
Creatinine 0.5 L
Glucose 106 H
Calcium 9.2
Total Bilirubin 2.7 H
AST 46 H
ALT 59 H
Alkaline Phosphatase 295 H
Vital Signs:
Vital Signs
Temp Pulse Resp BP Pulse Ox
98.1 F 62 18 133/75 100
12/27/24 23:30 12/27/24 23:30 12/27/24 23:30 12/27/24 23:30 12/27/24 23:30
I&O
12/27/24 12/28/24 12/29/24
06:59 06:59 06:59
Intake Total 1200 / 1200 480 / 480
Balance 1200 / 1200 480 / 480
[2024-12-28] MEDS: NEURONTIN PO (08:22)
[2024-12-28] MEDS: VITAMIN D3 (cholecalciferol) PO (08:22)
[2024-12-28] MEDS: COLACE PO (08:22)
[2024-12-28] MEDS: PROZAC PO (08:22)
[2024-12-28] MEDS: LR 1000 IV ×2 (08:58→23:18)
--- NOTE | 2024-12-28 16:51 | CM ---
Pt tolerating clear liquids.
Spoke with pt in room .Offered VN she declined need.
IMM reviewed signed on chart.
Cecilia dgt will drive her home.
PLAN Home no needs
[2024-12-28] MEDS: LOVENOX 30 MG SC (18:27)
[2024-12-28] MEDS: COLACE 100 MG PO (20:33)
[2024-12-28] MEDS: NON-FORMULARY ITEM 4.5 MG PO (21:05)
[2024-12-28] MEDS: NEURONTIN 300 MG PO (21:08)
[2024-12-29 05:19] LABS: % Basophils 0.5 % (0-2); % Eosinophils 2.8 % (0-6); % Immature Granulocytes 0.2 % (0-0.5); % Lymphocytes 34.5 % (20.5-51.1); % Monocytes 11.2 % (1.7-9.3); % Neutrophils 50.8 % (42.2-75.2); Absolute Eosinophils 0.2 10^3/uL (0-0.7); Absolute Monocytes 0.6 10^3/uL (0.1-0.6); Absolute Neutrophils 2.9 10^3/uL (1.4-6.5); Hematocrit 27.7 % (37.0-47.0); Hemoglobin 8.7 g/dL (12.0-16.0); Mean Corp Hgb Conc. 31.4 g/dL (33.0-37.0); Mean Corpuscular Hgb 25.9 pg (27.0-31.0); Mean Corpuscular Volume 82.4 fL (81.0-99.0); Mean Platelet Volume 9.5 fL (7.4-10.4); Nucleated Red Blood Cells % 0 %; Platelet Count 317 10^3/uL (130-400); Red Blood Cell Count 3.36 10^6/uL (4.20-5.40); Red Cell Dist. Width 21.2 % (11.5-14.5); White Blood Cell Count 5.7 10^3/uL (4.8-10.8)
[2024-12-29] MEDS: ZOSYN 50 IV ×2 (05:33→13:40)
[2024-12-29 05:47] LABS: ALT (SGPT) 42 U/L (0-35); AST (SGOT) 35 U/L (14-36); Albumin 2.7 g/dl (3.5-5.0); Alkaline Phosphatase 244 U/L (38-126); Blood Urea Nitrogen 11 mg/dl (7-17); Calcium 9.2 mg/dl (8.4-10.2); Carbon Dioxide 28 mmol/L (22-30); Chloride 111 mmol/L (98-107); Estimated Creatinine Clearance 64 ml/min; Glucose 104 mg/dl (70-99); Magnesium 1.5 mg/dl (1.6-2.3); Phosphorus 3.7 mg/dl (2.5-4.5); Potassium 3.3 mmol/L (3.5-5.1); Sodium 143 mmol/L (135-145); Total Bilirubin 2.5 mg/dl (0.2-1.3); Total Protein 5.5 g/dl (6.3-8.2); eGFR > 60.00
--- NOTE | 2024-12-29 07:04 | W.PN.HOSP.TC ---
Today's Communication/Plan
-
discharge
Assessment / Plan
Assessment / Plan
Physical exam:
General: Appears chronically ill. Cachectic
HEENT: Normocephalic, Atraumatic and dry mucous Membranes, icterus
Respiratory: Clear to Auscultation; Negative Wheezes, Rales or Rhonchi
Cardiac: Regular Rhythm and S1/S2
GI: Soft, mild tenderness, Nondistended, bowel sounds present
Musculoskeletal: No Clubbing, No Cyanosis and No Edema
Neuro: AOx3 conversant coherent
Psych: Calm
A/P:69F hx metastatic pancreatic ca here for evaluation abd pain/jaundice/transaminitis likely CBD stent obstruction vs advancing metastatic pancreatic cancer
Abdominal pain and elevated LFTs:
Etiology likely advancing metastatic pancreatic cancer + obstructed biliary stent
Tolerating low fat low residue diet
completed course of IV zosyn
consistently afebrile LFTs trending down
Ultrasound abdomen shows mild dilation of the bile duct and pancreatic duct
GI consult appreciated ERCP performed 12/28 choledocholithiasis completely removed, one stent removed, and 2 stents placed, see ERCP report for full details
Pancreatic cancer with liver mets and pancreatic lesions:
Follow-up with oncology as outpatient after acute illness
Pruritus likely 2/2 malignancy/bilirubin elevation
gabapentin 300 mg HS
Constipation:
bowel regimen
Left hydronephrosis:
Renal function stable and good urine output
renal US appreciated
Chronic pain, narcotic dependence:
Continue chronic narcotics
Bowel regimen as above
Anemia:
No signs of bleeding
Continue to monitor hemoglobin
Severe protein calorie malnutrition:
Nutrition eval at some point
Monitor and encourage oral intake
Depression:
Continue antidepressant
DVT prophylaxis:
Lovenox SQ
CODE STATUS:
Full code
Medically stable for discharge home with outpatient follow up recommendations.
Total Time Preparing Discharge ___40____ minutes including examination of the patient, summary of the hospital stay, instructions for continuing care to all relevant caregivers; and preparation of discharge records, prescriptions, and referral
forms if necessary.
Anticipated Discharge: Today
Subjective/Interval History
-
Date of Service: December 29, 2024
Seen and examined at bedside in no acute distress. Ambulating without issues or need for assist device. Overall patient reports feeling well, tolerating low residue diet. Eager to go home.
Objective Data
-
Labs:
Laboratory Results
12/29/24
05:08
WBC 5.7
Hgb 8.7 L
Hct 27.7 L
Plt Count 317
Sodium 143
Potassium 3.3 L
Chloride 111 H
Carbon Dioxide 28
BUN 11
Creatinine 0.6
Glucose 104 H
Calcium 9.2
Total Bilirubin 2.5 H
AST 35
ALT 42 H
Alkaline Phosphatase 244 H
Vital Signs:
Vital Signs
Temp Pulse Resp BP Pulse Ox
98.6 F 53 16 116/59 98
12/28/24 23:00 12/28/24 23:00 12/28/24 23:00 12/28/24 23:00 12/28/24 23:00
I&O
12/28/24 12/29/24 12/30/24
06:59 06:59 06:59
Intake Total 480 / 480 1320 / 1320
Balance 480 / 480 1320 / 1320
[2024-12-29 07:34] VITALS: BP 123/63
[2024-12-29] MEDS: VITAMIN D3 (cholecalciferol) 25 MCG PO (08:22)
[2024-12-29] MEDS: COLACE 100 MG PO (08:22)
[2024-12-29] MEDS: PROZAC 40 MG PO (08:22)
[2024-12-29] MEDS: MAGNESIUM SULFATE 100 IV (09:03)
[2024-12-29] MEDS: KCL ELIXIR 40 MEQ PO (09:03)
[2024-12-29 16:00] VITALS: BP 128/76
--- NOTE | 2024-12-29 16:05 | DOWNTIME ---
There was a [employer] Downtime on 12/29/2024 from 1230 to 12/29/2024 at 1550. Downtime documentation of patient's care, including medication administrations, has been reconciled in the electronic record per guidelines. Refer to the
patient's paper chart under the miscellaneous tab to see printed paper medication records and downtime forms.
--- NOTE | 2024-12-29 16:52 | W.PN.GI.CBS2 ---
Addendum entered and electronically signed by Ade Lui Do, MD 12/29/24 20:08:
I saw and examined the patient.
The [employer]PERINTENDENT [employer]AL's note was reviewed and I agree with the note.
Comment: She feels well. Some crampy lower quadrant discomfort but no BM since Friday. Vitals stable. soft, ND, NTTP. Labs reviewed.
Ok from GI perspective for hosp d/c today. Copy of ERCP report given to her. She has FU with Dr Del Toro in 2wks and d/c paperwork updated. All questions answered.
Original Note:
Today's Communication / Plan
-
s/p ERCP with Dr. Del Toro as noted
feeling well and remain afebrile without leukocytosis
LFT's trending down
cont diet as tolerated
still with some lower abdominal fullness possible constipation vs other cont miralax daily and colace BID-- will give addition dose miralax tonight
for possible discharge today
OP follow up scheduled 01/05 at 10:[address] toro
Assessment / Plan
-
69 y.o female with past medical history of pancreatic cancer with liver mets (dx on 12/2022 with pancreatic tail lesion, s/p IR liver bx liver met) Followed by Dr. Forte as an outpatient currently on palliative chemo therapy. She is status post
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 a 10 mm x 4 cm covered SEMS was placed with 7 Icelandic by 5 cm DPPS through it into the left hepatic duct. She had normal LFTs in mid October 2024. Dr. Del Toro was
contacted by her air box tester Dr. Forte on 12/13/2024 with an increase in bilirubin of 2.4. She was scheduled for an elective ERCP with to clean out her SEMS and replacement for 12/30/2024. However the patient started noticing an increase in her
jaundice, fatigue, suprapubic tenderness, pruritus and chills therefore she presented to the emergency room for further evaluation. s/p ERCP
12/28/24 ERCP - One visibly occluded stent from the common bile duct
was seen in the major papilla.
- One visibly occluded stent from the biliary tree was
seen in the major papilla.
- A filling defect consistent with a stone and sludge
was seen on the cholangiogram.
- A single moderate biliary stricture was found in the
middle third of the main bile duct. Uncertain if this
is new malignant stenosis/progression or distal
migration of existing SEMS. The stricture was
malignant appearing.
- Choledocholithiasis was found. Complete removal was
accomplished by balloon extraction.
- One stent was removed from the biliary tree.
- The biliary tree was swept and sludge was found.
- One plastic stent was placed into the left hepatic
duct.
- One plastic stent was placed into the right hepatic
duct.
Impression:
Obstructed biliary stent s/p ERCP with noted with exchange and noted noted choledocholithiasis and biliary stricture
Stage IV pancreatic adenocarcinoma
Suprapubic fullness
Plan
s/p ERCP with Dr. Del Toro as noted
feeling well and remain afebrile without leukocytosis
LFT's trending down
cont diet as tolerated
still with some lower abdominal fullness possible constipation vs other cont miralax daily and colace BID-- will give addition dose miralax tonight
for possible discharge today
OP follow up scheduled 01/05 at 10:[address] toro
Subjective
Subjective
Date of Service: December 29, 2024
12/29 brown stool on low residue diet
Objective
Data Reviewed
Laboratory Data:
Laboratory Results
12/29/24 05:08
12/29/24 05:08
Laboratory Results
PT 13.6 Sec (11.4-14.6) 12/26/24 05:48
INR 1.01 12/26/24 05:48
APTT 47.4 Sec (23.4-35.0) H 12/24/24 16:03
Phosphorus 3.7 mg/dl (2.5-4.5) 12/29/24 05:08
Magnesium 1.5 mg/dl (1.6-2.3) L 12/29/24 05:08
Total Bilirubin 2.5 mg/dl (0.2-1.3) H 12/29/24 05:08
AST 35 U/L (14-36) 12/29/24 05:08
ALT 42 U/L (0-35) H 12/29/24 05:08
Alkaline Phosphatase 244 U/L (38-126) H 12/29/24 05:08
Lipase 448 U/L (23-300) H 12/24/24 16:03
Vital Signs and I&O:
Vital Signs
Temp Pulse Resp BP Pulse Ox
98.1 F 68 17 128/76 97
12/29/24 16:00 12/29/24 16:00 12/29/24 16:00 12/29/24 16:00 12/29/24 16:00
I&O
12/28/24 12/29/24 12/30/24
06:59 06:59 06:59
Intake Total 480 / 480 1320 / 1320
Balance 480 / 480 1320 / 1320
Physical Exam
Physical Exam
HEENT: Moist mucous membranes and Other (minimal jaundice )
Cardiology: Normal Sinus Rhythm
Pulmonary: Clear
GI: Soft and Distended (mild lower fullness )
Extremities: No Edema
Neuro: Non Focal
--- NOTE | 2024-12-29 17:03 | CM ---
Md indicated pt for discharge
Pt tolerating low residual diet.
Spoke with pt in room .Offered VN she declined need.
Cecilia dgt will drive her home.
Pt may stay with her dgt a few days.
PLAN Home no needs
--- NOTE | 2024-12-29 17:27 | W.DCSUMMARY ---
Discharge Summary
Discharge Data
Date of Admission: 12/24/24
Date of Discharge: 12/29/24
-
Pending Results: No
Discharge Plan
-
Patient Disposition: Home (Routine Discharge)
Discharge Diagnosis/Procedures: metastatic pancreatic cancer with biliary obstruction
status post ERCP (Endoscopic Retrograde Cholangiopancreatography) performed 12/28 with old stent remove, two new stents placed, choledocholithiasis and biliary sludge removed
Liver Injury due to obstruction as above (resolving)
Pruritus likely secondary to malignancy/bilirubin elevation
Moderate Left Hydronephrosis
Anemia
Severe protein calorie malnutrition
Depression
Condition: Fair
Diet: Low Fat and Low Residue
Activity: As tolerated
Driving Restrictions: As prior to admission
Bathing Restrictions: None
Blood Work: Repeat CBC, CMP, and Magnesium level with primary care provider in 1 week of discharge.
Activity Restrictions/Additional Instructions:
Follow up with your primary care provider and Oncology in 1 week of discharge. For moderate left hydronephrosis without kidney injury follow up with urology in 2 week of discharge. Keep your appointment with GI
Gabapentin has been prescribed for pruritus likely due to malignancy and/or bilirubin elevation.
Miralax has been prescribed/as needed for constipation. Sennosides prescribed as scheduled prophylaxis for opiate induced constipation.
These laxatives are available over the counter.
Please take medications as prescribed/recommended and follow up with your care primary care provider and/or other healthcare provider involved in your care for refills and/or further adjustments to your medication regimen as necessary.
Referrals:
Nhung Forte MD [Active, Oncology] - in one week
Dickson Bolden MD [Active, Gastroenterology] - 01/05/25 10:15 am
Referral Note: follow up with Dr. Bolden as scheduled to review with recent procedure and follow up labs
Brian Bailey MD [Active, Urology] - in two weeks
Referral Note: Moderate Left Hydronephrosis
Geneva Hughes DO [Family Provider, [facility]] - in one week
Prescriptions:
New
polyethylene glycol 3350 17 gram Powder In Packet
17 g PO DAILY PRN (Reason: constipation) Qty: 30 0RF
gabapentin 300 mg Capsule
300 mg PO HS Qty: 30 0RF
sennosides 8.6 mg tablet
8.6 mg PO BID Qty: 60 0RF
Rx Instructions:
hold if diarrhea
Continued
fluoxetine 40 mg Capsule
40 mg PO DAILY
ondansetron HCl 8 mg Tablet
8 mg PO Q8HPRN PRN (Reason: nausea)
naltrexone 4.5 mg Capsule
4.5 mg PO HS
Patient Comments:
04/22/24: patient receives by mail. but did recall dosage
prochlorperazine maleate 10 mg tablet
10 mg PO Q6HPRN PRN (Reason: nausea)
zinc sulfate 50 mg zinc (220 mg) Tablet
50 mg PO DAILY
morphine 10 mg/5 mL solution
5 mg PO Q3HPRN PRN (Reason: severe pain)
Patient Comments:
12/24/2024: Pt has this prescription but has not used it.
cholecalciferol (vitamin D3) 25 mcg (1,000 unit) Tablet
25 mcg PO DAILY
vitamin K2 40 mcg Tablet
40 mcg PO DAILY
Discharge Orders:
Discharge Patient (As Directed); Ordered 12/29/24
Ordered By: Liss Mccurdy
Discharge Date and Time
Print Language: EQUATORIAL GUINEAN
--- NOTE | 2024-12-29 18:35 | PTCARENOTE ---
Medication from home, naltrexone 4.5 mg capsule, returned to pt from locked narc drawer. No paper attached to pill bottle. This RN, additional RN and hatch supervisor counted 18 pills and verified with patient. Pills returned to pt.
== END 2024-12-29 18:27 | disposition home or self-care (01) | DRG 435 ==
LOC: 3 WEST ACU 19:11
PROVIDERS: Clinical Nurse Specialist Family Health; Hospitalist; Internal Medicine Gastroenterology; Physician Assistant Medical; ADMITTING PHYSICIAN Internal Medicine; ATTENDING PHYSICIAN Internal Medicine; CONSULT PHYSICIAN Internal Medicine Gastroenterology; EMERGENCY PHYSICIAN Emergency Medicine; FAMILY PHYSICIAN Family Medicine
PROC: 0F768DZ Dilation of Left Hepatic Duct with Intraluminal Device, Via Natural or Artificial Opening Endoscopic (ICD-10-PCS; 2024-12-28)
PROC: 0FPB8DZ Removal of Intraluminal Device from Hepatobiliary Duct, Via Natural or Artificial Opening Endoscopic (ICD-10-PCS; 2024-12-28)
PROC: 0FC98ZZ Extirpation of Matter from Common Bile Duct, Via Natural or Artificial Opening Endoscopic (ICD-10-PCS; 2024-12-28)
PROC: BF111ZZ Fluoroscopy of Biliary and Pancreatic Ducts using Low Osmolar Contrast (ICD-10-PCS; 2024-12-28)
PROC: 0F758DZ Dilation of Right Hepatic Duct with Intraluminal Device, Via Natural or Artificial Opening Endoscopic (ICD-10-PCS; 2024-12-28)
DX: C25.2 Malignant neoplasm of tail of pancreas (principal); E43 Unspecified severe protein-calorie malnutrition; C78.7 Secondary malignant neoplasm of liver and intrahepatic bile duct; K80.51 Calculus of bile duct without cholangitis or cholecystitis with obstruction; N13.30 Unspecified hydronephrosis; Z68.1 Body mass index [BMI] 19.9 or less, adult; F11.20 Opioid dependence, uncomplicated; T85.590A Other mechanical complication of bile duct prosthesis, initial encounter; L29.9 Pruritus, unspecified; F32.A Depression, unspecified; K59.00 Constipation, unspecified; G89.29 Other chronic pain; D64.9 Anemia, unspecified; Y73.2 Prosthetic and other implants, materials and accessory gastroenterology and urology devices associated with adverse incidents; Z79.899 Other long term (current) drug therapy; Z88.2 Allergy status to sulfonamides
CPT/HCPCS: 74330; 76000; 76700; 76770; 80053; 81003; 81015; 83690; 83735; 84100; 85025; 85610; 85730; 87086; 99285; C1769; C2617

== ENCOUNTER 2024-12-31 16:52 | Inpatient (IN) | payer MEDICARE, BC, SELFPAY ==
[2024-12-31 09:46] VITALS: BP 151/89
[2024-12-31] MEDS: LET TOPICAL ANESTHETIC GEL 3 ML TOPICAL (10:09)
[2024-12-31 10:56] LABS: % Basophils 0.3 % (0-2); % Eosinophils 0.2 % (0-6); % Immature Granulocytes 0.5 % (0-0.5); % Lymphocytes 12.9 % (20.5-51.1); % Monocytes 5.5 % (1.7-9.3); % Neutrophils 80.6 % (42.2-75.2); Absolute Immature Granulocytes 0.1 10^3/uL (0-0.05); Absolute Lymphocytes 1.8 10^3/uL (1.2-3.4); Absolute Monocytes 0.8 10^3/uL (0.1-0.6); Absolute Neutrophils 11.4 10^3/uL (1.4-6.5); Hematocrit 32.2 % (37.0-47.0); Hemoglobin 10.5 g/dL (12.0-16.0); Mean Corp Hgb Conc. 32.6 g/dL (33.0-37.0); Mean Corpuscular Hgb 26.4 pg (27.0-31.0); Mean Corpuscular Volume 81.1 fL (81.0-99.0); Mean Platelet Volume 9.2 fL (7.4-10.4); Nucleated Red Blood Cells % 0 %; Platelet Count 389 10^3/uL (130-400); Red Blood Cell Count 3.97 10^6/uL (4.20-5.40); Red Cell Dist. Width 21.8 % (11.5-14.5); White Blood Cell Count 14.1 10^3/uL (4.8-10.8)
[2024-12-31 11:10] LABS: ALT (SGPT) 51 U/L (0-35); AST (SGOT) 65 U/L (14-36); Albumin 3.4 g/dl (3.5-5.0); Alkaline Phosphatase 275 U/L (38-126); Blood Urea Nitrogen 13 mg/dl (7-17); Calcium 9.4 mg/dl (8.4-10.2); Carbon Dioxide 26 mmol/L (22-30); Chloride 107 mmol/L (98-107); Glucose 106 mg/dl (70-99); Lipase 57 U/L (23-300); Potassium 3.9 mmol/L (3.5-5.1); Sodium 140 mmol/L (135-145); Total Bilirubin 2.2 mg/dl (0.2-1.3); Total Protein 6.6 g/dl (6.3-8.2); eGFR > 60.00
[2024-12-31] MEDS: DILAUDID 0.5 MG IV ×2 (11:26→12:49)
[2024-12-31] MEDS: ZOFRAN 4 MG IV ×3 (11:27→22:46)
[2024-12-31] MEDS: OMNIPAQUE 50 ML PO (11:27)
[2024-12-31] MEDS: NSS 1000 IV (11:29)
[2024-12-31 11:32] VITALS: BMI 17.0
[2024-12-31 12:00] VITALS: BP 143/66
--- NOTE | 2024-12-31 12:00 | ED.GENMED ---
History of Present Illness
General
Chief Complaint: Abdominal Pain
Source: patient
Exam Limitations: none
Time Seen by Provider: 12/31/24 10:27
History of Present Illness
History of Present Illness:
Patient discharged 2 days ago after an issue with a biliary stent. She then developed abdominal pain most consistent with her SBO's. Nausea and vomiting the last 12 hours. Although she did have a bowel movement this morning. No fever. No
recurring jaundice issues.
Past History
Past History
ED Past Medical History: Cancer (Pancreatic cancer)
ED Past Surgical History: (X1)
Social History
Tobacco: Non-smoker
Alcohol: Former
Drug: None
Personal:
Living: with family
Review of Systems
Review of Systems
All Other Systems: Not applicable
Constitutional: Denies fever
Respiratory: Reports no symptoms
Cardiac: Reports no symptoms
Phy Exam
Physical Exam
Physical Exam:
GENERAL: Alert and oriented in no apparent distress
EYE: Orbits normal.
NECK: Supple, no significant adenopathy.
ENT: Pharynx without erythema
CARDIAC: Regular rate and rhythm without any obvious murmurs. Port upper chest wall
LUNGS: Clear breath sounds,normal
ABDOMEN: Soft, some bowel sounds although decreased. Tenderness right upper quadrant epigastric and left lower quadrant. No rebound or guarding no mass or hernia
NEUROLOGICAL: Alert and oriented , grossly non-focal
SKIN: Warm and dry, no rash or lesion, no discoloration, skin intact.
MUSCULOSKELETAL: No edema,no deformity.Good color
PSYCH: Normal and appropriate interaction.
Course
Orders/Labs/Results
Orders:
Orders
12/31/24 10:07
Lidocaine/Epinephrine/Tetracai [Let Topical Anesthetic Gel] 3 ml .ROUTE .[facility]
12/31/24 10:09
Lidocaine/Epinephrine/Tetracai [Let Topical Anesthetic Gel] 3 ml TOPICAL NOW STA
12/31/24 10:37
CT Abd/pel W Iv And Oral Contr Urgent
Comment:
Reason For Exam: abd pain hx of pancreatic ca. ? sbo. recent stent
IV Insert/Care/Rem.- Treatment PRN
0.9% Sodium Chloride 1000 ml [Nss] 1,000 ml IV BOLUS
HYDROmorphone [Dilaudid] 0.5 mg IV NOW STA
Iohexol [Omnipaque] See Protocol PO NOW STA
Ondansetron Injectable [Zofran] 4 mg IV NOW STA
12/31/24 10:49
Complete Blood Count/With Diff Urgent
Comprehensive Metabolic Panel Urgent
Lipase Urgent
12/31/24 12:37
HYDROmorphone [Dilaudid] 0.5 mg IV NOW STA
12/31/24 13:14
Ondansetron Injectable [Zofran] 4 mg .ROUTE .[facility]
12/31/24 13:15
Ondansetron Injectable [Zofran] 4 mg IV NOW STA
12/31/24 14:35
Morphine Sulfate 4 mg IV NOW STA
12/31/24 15:15
UROLOGY CONSULT Routine
Consulting Provider: Brian Bailey
Was physician already notified: Yes
12/31/24 15:27
UA Reflex to Culture [Urinalysis Reflex To Culture] Routine
Date Specimen was Collected: 01/01/25
Time Specimen was Collected: 10:59
12/31/24 15:31
Consult Surgery [SURGICAL CONSULT] Routine
Consulting Provider: Cody De Paz
Was physician already notified: Yes
Reason for consult: sbo
12/31/24 16:21
Admit Patient As Directed
Co-Sign Provider:
Level of Care: Inpatient admission
Assign to:: Medical/Surgical
Physician / Group: Amadeo Saleh
Diagnosis: Partial small bowel obstruction
Reason for Hospitalization: Partial small bowel obstruction
Expected length of stay greater than two midnights?: Yes
ELOS- Estimated Length of Stay in days: 3
I certify the patient meets the requirements for IP care: Yes
Code Status As Directed
Resuscitation Status: Do not resuscitate
Reached after discussion with pt or family/Healthcare POA: Yes
Pulse Ox/spot Check [RESP] Routine
Quantity: 1
12/31/24 16:22
Activity As Directed
Activity Level: As Tolerated
Vital Signs As Directed
Frequency: Per unit guidelines
PRN Pain Medication Management As Directed
May give lesser potent ordered pain med per pt: Yes
preference::
Protocol:: Medication orders for pain may be administered in a
manner that supports deferring to patient preference
when the pt is:
- Requesting an ordered lesser potent pain medication.
Least to most potent pain medications are defined
as: acetaminophen < NSAID < tramadol < opioids
(morphine, oxycodone, hydromorphone).
- Requesting a lesser dose of the same medication IF
ORDERED.
- Requesting a less intrusive route of administration
if both routes are prescribed by the provider (PO <
IV).
12/31/24 16:23
DNR Bracelet Application ONCE
12/31/24 16:24
DX Deep Vein Thrombosis Video Routine
12/31/24 16:27
Acetaminophen [Tylenol] 650 mg PO Q4HPRN PRN
HYDROmorphone [Dilaudid] 0.5 mg IV Q4HPRN PRN
12/31/24 16:29
Admit/Transfer Patient As Directed
Co-Sign Provider:
Level of Care: Inpatient admission
Assign to:: Medical/Surgical
Physician / Group: Saleh, Amadeo Siddavatam
Diagnosis: Partial small bowel obstruction
Reason for Hospitalization: Partial small bowel obstruction
Expected length of stay greater than two midnights?: Yes
ELOS- Estimated Length of Stay in days: 3
I certify the patient meets the requirements for IP care: Yes
PRN Pain Medication Management As Directed
May give lesser potent ordered pain med per pt: Yes
preference::
Protocol:: Medication orders for pain may be administered in a
manner that supports deferring to patient preference
when the pt is:
- Requesting an ordered lesser potent pain medication.
Least to most potent pain medications are defined
as: acetaminophen < NSAID < tramadol < opioids
(morphine, oxycodone, hydromorphone).
- Requesting a lesser dose of the same medication IF
ORDERED.
- Requesting a less intrusive route of administration
if both routes are prescribed by the provider (PO <
IV).
12/31/24 16:34
ONCOLOGY CONSULT Routine
Consulting Provider: Aditya Che
Was physician already notified: Yes
12/31/24 16:47
Prochlorperazine [Compazine] 5 mg IV Q6HPRN PRN
12/31/24 17:00
KCl 20 Meq/D5.45%Sodchl 1000ML [D5/0.45%NSS with KCL 20 MEQ] 20 meq in 1,000 ml IV 100 mls/hr
12/31/24 17:59
Ondansetron Injectable [Zofran] 4 mg IV Q6HPRN PRN
12/31/24 18:00
Enoxaparin Sodium [Lovenox] 40 mg SC QPM
01/01/25 05:37
Complete Blood Count/No Diff IN AM
Comprehensive Metabolic Panel IN AM
Creatine Phosphokinase IN AM
Prothrombin Time IN AM
01/01/25 Breakfast
NPO
Allow oral meds: No
Allow clear liquids: No
NPO with Ice Chips: Yes
Abnormal Lab Results
12/31/24
10:49
WBC 14.1 H 10^3/uL
(4.8-10.8)
RBC 3.97 L 10^6/uL
(4.20-5.40)
Hgb 10.5 L D g/dL
(12.0-16.0)
Hct 32.2 L %
(37.0-47.0)
MCH 26.4 L pg
(27.0-31.0)
MCHC 32.6 L g/dL
(33.0-37.0)
RDW 21.8 H %
(11.5-14.5)
Abs Immat Gran (auto) 0.1 H 10^3/uL
(0-0.05)
Absolute Neuts (auto) 11.4 H 10^3/uL
(1.4-6.5)
Absolute Monos (auto) 0.8 H 10^3/uL
(0.1-0.6)
Neutrophils % 80.6 H %
(42.2-75.2)
Lymphocytes % 12.9 L %
(20.5-51.1)
Creatinine 0.5 L mg/dL
(0.6-1.0)
Glucose 106 H mg/dl
(70-99)
Total Bilirubin 2.2 H mg/dl
(0.2-1.3)
AST 65 H U/L
(14-36)
ALT 51 H U/L
(0-35)
Alkaline Phosphatase 275 H U/L
(38-126)
Albumin 3.4 L g/dl
(3.5-5.0)
12/31/24 10:49
12/31/24 10:49
Vital Signs
Initial and Last Documented VS:
Initial Vital Signs
Temp Pulse Resp BP Pulse Ox
98.8 F 74 18 151/89 97
12/31/24 09:46 12/31/24 09:46 12/31/24 09:46 12/31/24 09:46 12/31/24 09:46
Last Documented Vital Signs
Temp Pulse Resp BP Pulse Ox
97.5 F 81 16 90/49 94
01/06/25 15:00 01/06/25 15:00 01/06/25 16:00 01/06/25 15:00 01/06/25 15:00
MDM/Problems Addressed
Differential Diagnosis Includes:
Patient with recurring abdominal pain nausea vomiting. Differential would include stent issue SBO, issues related directly to her cancer. Workup in progress
*Critical Care Note
Total Time (30-74mins, 75-104mins- exclusive of procedures): Not Applicable
Data Reviewed
Review of Other/Old Records Reveals: Labs, Records, Radiology Studies and Discharge Summary
ED Attending Note
-
Portions of this chart may have been created with voice recognition software.� Occasional wrong word or��sound alike� substitutions may have occurred due to the inherent limitations of voice recognition software.
Discharge Plan
Departure
Patient Disposition: Admit
Date of Disposition: 12/31/24
Time of Disposition: 14:34
Presentation/result/management discussed w/ accepting MD/DO: General surgery
Discharge Problem:
SBO, Metastatic pancreatic CA, Pelvic mass
Interventions
Interventions:
*Risk Screen - Suicide Last Done: 12/31/24 09:46
*General Assessment Last Done: 12/31/24 11:34
*Neglect/Abuse Screening Last Done: 12/31/24 11:34
*ED- Fall Risk Assessment Last Done: 12/31/24 11:34
*ED COVID-19 Vaccine History Last Done: 12/31/24 09:46
*Nursing Disposition Last Done: 12/31/24 18:25
[facility] Assessment Last Done: 12/31/24 11:34
Discharge Date and Time
Discharge Date/Time: 12/31/24 18:15
[2024-12-31 13:00] VITALS: BP 154/76
--- NOTE | 2024-12-31 15:10 | CON.GS ---
Addendum entered and electronically signed by Cody De Paz MD 12/31/24 15:43:
Patient seen and examined with surgical RADIO DISPATCHER. Agree with documented progress note. Patient's daughters at bedside and are assisting with history taking.
HPI: 69-year-old female with known history of metastatic pancreatic cancer on palliative chemotherapy, last treatment about 5 weeks ago presenting with worsening abdominal pains, intractable nausea/dry heaves/vomiting. She was just discharged from
12/29/2024 and reports that she began noting abdominal distention and crampiness in the hospital the date of discharge but was attributing it to her recent stent exchange. Since being discharged she has been unable to tolerate any oral intake
including liquids with persistent and recurrent vomiting and nausea. She feels bloating and distention in the abdomen. Colicky abdominal pain centralized. She has had 2 bowel movements over the past few days with semiformed stool. 2 previous
small bowel obstructions that improved with conservative management and NG tube decompression. Her last small bowel obstruction was in August.
Past abdominal surgical history only notable for .
AFVSS
NAD AAO x 3 but both acute and chronically ill-appearing/cachectic
ABD: Softly distended, tympanitic, mild generalized tenderness without localizing rebound or guarding.
White blood cell count 14.1 hemoglobin 10.5 platelets 389. Chemistry panel with normal BMP and liver function testing improving since stent exchange.
CT abdomen/pelvis imaging personally reviewed and interpreted as well as radiologist report. Moderate ascites, free fluid scattered throughout the abdominal cavity. Dilated proximal small bowel partially opacified by contrast and other loops with
nonopacified liquid. Distal small bowel appears decompressed. Larger heterogeneous soft tissue mass mass in the central/left hemipelvis. Exact transition point small bowel difficult to determine but may be associated with this area towards the
midline. No pneumatosis. No free air. No portal venous or mesenteric venous gas.
Assessment/plan: 69-year-old female with stage IV pancreatic cancer, liver metastasis, biliary obstruction requiring stent, probable peritoneal disease with ascites presenting with partial versus early high-grade presumably malignant small bowel
obstruction.
Advised patient and her daughters at bedside of CT imaging findings and suspicion that obstruction is more likely be malignant in nature.
Given advanced pancreatic ca and CT imaging findings recommend medical management, unfortunately it is unlikely that there are surgical treatment options.
Given persistent nausea, dry heaves and emesis despite antiemetics recommended NG tube placement which patient was in agreement with.
NG tube placed at bedside with assistance of RADIO DISPATCHER
IV fluid hydration
Supportive care
Follow-up abdominal x-ray tomorrow to evaluate for potential progression of oral contrast
Original Note:
Consultation
-
Date/Time Consultation Performed: 12/31/24 1500
Medical History
-
Chief Complaint: n/v
History of Present Illness:
69 yo female with a h/o pancreatic cancer with liver mets on palliative chemo (LD approx 5 weeks ago), Obstructive jaundice with recent ERCP for stenting of right and left hepatic duct on 12/28/24 (previous stents placed April 2024), SBO in
August and 2 years ago which resolved without surgical intervention and c-sections who presents with n/v and worsening abdominal cramping pain since her recent admission earlier this week. Daughters at bedside assisting with history as patient
actively vomiting during exam. Vomiting clear liquid at this time. She notes that she did pass a formed stool this am and maybe one yesterday or the day before as well. She denies fevers or chills.
Past Medical History
Past Medical History: Cancer (pancreatic with liver mets on palliative chemo, Obstructive jaundice with ERCP for stenting of right and left hepatic duct on 12/28/24 (previous stents placed April 2024)) and Other (sbo in 2022 and August 2024)
Past Surgical History: and Other (Right chest wall port)
Social History
Tobacco: Non-Smoker
Alcohol: None
Living: With Family (staying with her daugher)
Family History
Family History: Reviewed & Not Pertinent
Allergies / Home Medications
Allergy/AdvReac Type Severity Reaction Status Date / Time
Sulfa (Sulfonamide Allergy Rash/HIVES Verified 12/31/24 09:51
Antibiotics)
�Medication �Instructions �Recorded �Confirmed �Type
fluoxetine 40 mg capsule 40 mg PO DAILY Depression 04/22/24 12/24/24 History
naltrexone 4.5 mg capsule 4.5 mg PO HS Pain 04/22/24 12/24/24 History
ondansetron HCl 8 mg tablet 8 mg PO Q8HPRN PRN nausea 04/22/24 12/24/24 History
cholecalciferol (vitamin D3) 25 25 mcg PO DAILY 12/24/24 12/24/24 History
mcg (1,000 unit) tablet
morphine 10 mg/5 mL oral solution 5 mg PO Q3HPRN PRN severe pain 12/24/24 12/24/24 History
prochlorperazine maleate 10 mg 10 mg PO Q6HPRN PRN nausea 12/24/24 12/24/24 History
tablet
vitamin K2 40 mcg tablet 40 mcg PO DAILY 12/24/24 12/24/24 History
zinc sulfate 50 mg zinc (220 mg) 50 mg PO DAILY 12/24/24 12/24/24 History
tablet
gabapentin 300 mg capsule 300 mg PO HS #30 caps 12/29/24 Rx
polyethylene glycol 3350 17 gram 17 g PO DAILY PRN constipation #30 12/29/24 Rx
oral powder packet ea
sennosides 8.6 mg tablet 8.6 mg PO BID #60 tabs 12/29/24 Rx
Review of Systems
-
History Source: Patient and Family
All other systems: Negative unless noted
A 10 point review of systems was completed, and was negative except as per HPI.
Physical Exam
Vital Signs
Temp Pulse Resp BP Pulse Ox
98.8 F 74 15 154/76 97
12/31/24 09:46 12/31/24 13:15 12/31/24 13:15 12/31/24 13:00 12/31/24 13:15
12/30/24 12/31/24 01/01/25
06:59 06:59 06:59
Actual Weight 45 kg
Body Mass Index (BMI) 17.0
Lab Results
12/31/24 10:49
12/31/24 10:49
WBC 14.1 10^3/uL (4.8-10.8) H 12/31/24 10:49
Hgb 10.5 g/dL (12.0-16.0) L D 12/31/24 10:49
Hct 32.2 % (37.0-47.0) L 12/31/24 10:49
Plt Count 389 10^3/uL (130-400) D 12/31/24 10:49
Abs Immat Gran (auto) 0.1 10^3/uL (0-0.05) H 12/31/24 10:49
Neutrophils % 80.6 % (42.2-75.2) H 12/31/24 10:49
Physical Exam
General: Other (actively vomiting); Negative Well Nourished or Comfortable
HEENT: Normocephalic and Scleral Icterus
Respiratory: Non Labored Respirations
GI: Soft, Tender (generalized) and Distended
Skin: Warm and Jaundice
Neuro: Awake, Alert and AO x 3
Psych: Calm
Data Reviewed
-
CT Scan: Image Personally Visualized and interpreted, Report Reviewed by me, Discussed with Physician, Discussed with Nurse, Discussed with Patient and Discussed with Family
Labs: Labs Reviewed by me, Discussed with Physician, Discussed with Nurse, Discussed with Patient and Discussed with Family
Old Records: Reviewed
Assessment / Plan
-
69 yo female with a h/o pancreatic cancer with liver mets on palliative chemo (LD approx 5 weeks ago) known to Dr. Forte, Obstructive jaundice with recent ERCP for stenting of right and left hepatic duct on 12/28/24 (previous stents placed
April 2024), SBO in August and 2 years ago which resolved without surgical intervention and c-sections who presents with n/v and worsening abdominal cramping pain since her recent admission earlier this week. She notes that she did pass a
formed stool this am and maybe one yesterday or the day before as well. Afebrile, VSS. CT imaging reviewed and most consistent with malignant SBO given presence of soft tissue mass as transition point which is also externally compressing the ureter
with left hydronephrosis present. Suspect this is SBO is partial given her continued passage of some stools. Unclear if nausea also related to hydronephrosis as well. Leukocytosis present, LFT's trending down from previous.
Plan:
NGT placed at bedside for decompression
Keep NPO
Analgesics/antiemetics prn
Consider Urology and Oncology consultations
--- NOTE | 2024-12-31 15:19 | HPS.HSE ---
Family Physician
-
Family Physician: Giselle Hughes
Chief Complaint
-
Nausea and vomiting
History of Present Illness
Patient is a 69-year-old female with past medical history of pancreatic cancer with liver mets (diagnosed on 12/2022 with pancreatic dilations, s/p IR and liver biopsy, liver mets), depression, severe protein calorie malnutrition, anemia, chronic
pain, small bowel partial obstruction in last August and the year before who presents to the ER with complaint of nausea, vomiting and abdominal pain.
She was recently discharged from the hospital on 12/29/2024 after being treated for, Choledocholithiasis and biliary stent replacement. She was started on solid diet and as per her she has noticed some distention of the abdomen which she attributed
to this recent surgical procedure. Yesterday she had a bowel movement but was feeling nauseous, today she also had a bowel movement but today she definitely noticed distention of the abdomen along with nausea, vomiting and abdominal pain along with
dry heaves. She has had partial small obstructions in the past and could relate the symptoms to that. CT abdomen was done in the ER that were consistent with partial small bowel obstruction secondary to a soft tissue mass in the pelvis that could
be arising from colon versus serosal metastatic disease.
On her labs she had mild leukocytosis, general surgery was consulted who recommended conservative management of partial small bowel obstruction.
In addition, on abdominal CT there was moderate to severe left-sided hydronephrosis secondary to obstruction but the kidney function was normal and the patient did not report any issues with pain or urination.
She rates the pain in the abdomen as 9 out of 10 before receiving morphine, at the time of my assessment she had received the morphine and just reported mild discomfort.
She denies any fever, chills, cough, shortness of breath.
Medical History
Past Medical History
Past Medical History: Reports Cancer (Pancreatic cancer with biopsy-proven liver mets), HTN, Psychiatric (Depression) and Other (S/p ERCP x 2 12/28/2024, 04/23/2024 for choledocholithiasis, biliary sludge removal and stent cleaning/exchange, liver
injury due to obstruction)
Additional Past Medical History:
Partial small bowel obstruction x 3 resolved with medical treatment
Left-sided hydronephrosis
Past Surgical History: Reports and Other ([place] tooth extraction, port a cath, ERCP x 2)
Social History
Tobacco: Non-smoker
Alcohol: None
Drug: None
Living: With Family (Currently staying with daughter Cecilia when she gets sick)
Employment: Retired
Family History
Family History: Not pertinent
Allergies / Home Medications
Allergies reflects when Allergies were last updated in [employer]
Home Medications with original date entered in [employer]
Allergy/Medication List:
Allergies
Allergy/AdvReac Type Severity Reaction Status Date / Time
Sulfa (Sulfonamide Allergy Rash/HIVES Verified 12/31/24 09:51
Antibiotics)
Home Medications
fluoxetine 40 mg capsule 40 mg PO DAILY Depression 04/22/24
naltrexone 4.5 mg capsule 4.5 mg PO HS Pain 04/22/24
ondansetron HCl 8 mg tablet 8 mg PO Q8HPRN PRN nausea 04/22/24
cholecalciferol (vitamin D3) 25 mcg (1,000 unit) tablet 25 mcg PO DAILY 12/24/24
prochlorperazine maleate 10 mg tablet 10 mg PO Q6HPRN PRN nausea 12/24/24
vitamin K2 40 mcg tablet 40 mcg PO DAILY 12/24/24
zinc sulfate 50 mg zinc (220 mg) tablet 50 mg PO DAILY 12/24/24
gabapentin 300 mg capsule 300 mg PO HS #30 caps 12/29/24
Review of Systems
-
A 12 point ROS was completed and negative except as noted: Yes
Physical Exam
Vital Signs
Vital Signs
Temp Pulse Resp BP Pulse Ox
98.8 F 74 15 154/76 97
12/31/24 09:46 12/31/24 13:15 12/31/24 13:15 12/31/24 13:00 12/31/24 13:15
Physical Exam
General: Appears Chronically Ill, Cachectic and Other (Pale appearing)
HEENT: Other (Pale appearing, dry mucous membranes)
Respiratory: Clear; No Wheezes, Rales or Rhonchi
Cardiac: S1/S2, Regular Rhythm and Tachycardia
GI: Soft, Tender, Distended and Other (Decreased bowel sounds)
Musculoskeletal: No Clubbing, No Cyanosis and No Edema
Skin: Warm and Dry
Neuro: Awake, AO x 3 and Nonfocal/grossly intact
Psych: Calm
Laboratory Results
-
12/31/24 10:49
12/31/24 10:49
Laboratory Results
Total Bilirubin 2.2 mg/dl (0.2-1.3) H 12/31/24 10:49
AST 65 U/L (14-36) H 12/31/24 10:49
ALT 51 U/L (0-35) H 12/31/24 10:49
Alkaline Phosphatase 275 U/L (38-126) H 12/31/24 10:49
Lipase 57 U/L (23-300) 12/31/24 10:49
Impression/Plan
-
IMPRESSION:
Patient is a 69-year-old female with history of metastatic pancreatic cancer currently on palliative chemotherapy and following up with Dr. Forte on outpatient basis. She has cancer of the pancreatic tail and gets 6 monthly biliary ducts
gleaning/stent exchange. She was recently discharged from the hospital 2 days ago after her biliary stents were removed and exchanged. At that time she felt her abdomen distention but attributed it to the recent surgery. She had regular once
daily bowel movements, today she also had a bowel movement. She noticed to be very nauseous, had dry heaves, was vomiting and there was abdominal pain for which she came to the ER. CT abdomen showed multiple small bowel loop dilatations along with
metastatic liver disease, left-sided hydronephrosis.
Patient admitted for management of partial small bowel obstruction, left-sided hydronephrosis and pain management.
Assessment/PLAN:
#Partial small bowel obstruction
NPO
IV fluids dextrose5 and 1/2normal saline with KCl at 100 mL/h
Zofran Compazine
NG tube
Optimize pain management
Can give ice chips
Surgery consult appreciated-conservative measures and monitoring including NGT and bowel rest
Continue to monitor
#Left-sided hydronephrosis
Based on CT, moderate to severe left-sided hydronephrosis secondary to obstruction
Input output monitoring
Temperature charting, WBC monitoring, renal function test monitoring
Urology consult
#Essential hypertension secondary to pain-Optimize pain management
# Pancreatic cancer with biopsy-proven liver mets-consult heme-onc, patient is currently on palliative chemotherapy and follows up with Dr. Forte
# Depression-Hold oral medications for now
DVT prophylaxis-enoxaparin 40 mg every afternoon
CODE STATUS-DNR
[2024-12-31] MEDS: MORPHINE SULFATE 4 MG IV (15:29)
--- NOTE | 2024-12-31 16:10 | W.PN.UPDATE ---
Update Note
Progress Note Update
Seen and examined by me independently in collaboration with the FP resident.
Past medical history/social history/medication/allergies reviewed.
Lab data and imaging data reviewed.
Patient with history of metastatic pancreatic cancer currently on treatments and was discharged 2 days ago after replacement of her biliary stents (back with nausea vomiting and abdominal distention after she went back on solid diet. She had a
bowel movement yesterday. But she definitely felt his abdomen is quite distended. She had history of partial small bowel obstruction in the recent past and also complete bowel obstruction prior to that. Both times was treated conservatively with
NG tube suction and it resolved.
She had NG tube placed in the ED which seems to be helping with her abdominal discomfort but has persistent nausea.
CT abdomen shows multiple small bowel loops dilatation with decompressed terminal ileum and a possibility of a soft tissue which may be arising from the colon versus serosal metastatic disease.
Clinical picture is concerning for a bowel obstruction unclear at this point with complete or partial.
Appreciate general surgery input. Continue with NG tube suction. Start on IV fluids. Continue with pain regimen.
If no clinical improvement in her abdominal complaints then I would consider possibly other etiologies. There is intra-abdominal malignant disease which includes liver lesions, portal vein thrombosis, ascites, biliary stents. LFTs are mildly
elevated which we will continue to follow and if there is any progressive cholestasis picture then consider biliary stent obstruction.
Discussed with patient, both daughters at bedside regarding clinical findings and treatment plan.
CODE STATUS according to the wishes of the patient DNR. This was discussed with the daughters present at the bedside.
[2024-12-31 18:13] VITALS: BP 133/73
[2024-12-31 18:14] VITALS: BMI 17.1
[2024-12-31] MEDS: D5/0.45%NSS with KCL 20 MEQ 1000 IV (18:41)
[2024-12-31] MEDS: LOVENOX 40 MG SC (18:42)
--- NOTE | 2024-12-31 19:13 | CONS.URO ---
Consultation
-
Date/Time Consultation Performed: 12/31/24 19:14
Performing Provider: Peffer
Reason for Consultation: L hydronephrosis
Medical History
History of Present Illness
69F with no prior urologic history
Hx of metastatic pancreatic cancer with multiple intrabdominal implants
Recent history of bowel obstructions treated successfully with NGT decompression
Presented last week with obstructed biliary stent which was exchanged
Imaging with abd abd renal US 12/24 and 12/26 showed new moderate left hydronephrosis
She presented to ER again with abdominal and and N/V
CT showed small bowel obstruction likely related to pelvic soft tissue mass which also compresses L ureter with L hydroureteronephrosis
After NGT placement her pain is much better
She has not had L flank pain/CVA tenderness
Renal function is normal
Past Medical History
Past Medical History: Other (Cancer (Pancreatic cancer with biopsy-proven liver mets), HTN, Psychiatric (Depression) and Other (S/p ERCP x 2 12/28/2024, 04/23/2024 for choledocholithiasis, biliary sludge removal and stent cleaning/exchange, liver
injury due to obstruction)
Social History
Tobacco: Non-smoker
Alcohol: None
Drug: None
Family History
Family History: Reviewed & Not Pertinent
Allergies/Home Medications
Allergies
Allergy/AdvReac Type Severity Reaction Status Date / Time
Sulfa (Sulfonamide Allergy Rash/HIVES Verified 12/31/24 09:51
Antibiotics)
Home Medications
�Medication �Instructions �Recorded �Confirmed �Type
fluoxetine 40 mg capsule 40 mg PO DAILY Depression 04/22/24 12/31/24 History
naltrexone 4.5 mg capsule 4.5 mg PO HS Pain 04/22/24 12/31/24 History
ondansetron HCl 8 mg tablet 8 mg PO Q8HPRN PRN nausea 04/22/24 12/31/24 History
cholecalciferol (vitamin D3) 25 25 mcg PO DAILY 12/24/24 12/31/24 History
mcg (1,000 unit) tablet
prochlorperazine maleate 10 mg 10 mg PO Q6HPRN PRN nausea 12/24/24 12/31/24 History
tablet
vitamin K2 40 mcg tablet 40 mcg PO DAILY 12/24/24 12/31/24 History
zinc sulfate 50 mg zinc (220 mg) 50 mg PO DAILY 12/24/24 12/31/24 History
tablet
gabapentin 300 mg capsule 300 mg PO HS #30 caps 12/29/24 12/31/24 Rx
Physical Exam
Vital Signs
Vital Signs
Temp Pulse Resp BP Pulse Ox
98.4 F 74 18 133/73 98
12/31/24 18:13 12/31/24 18:13 12/31/24 18:13 12/31/24 18:13 12/31/24 18:13
Lab / Testing Results
Laboratory Results
12/31/24 10:49
12/31/24 10:49
Physical Exam
General: Well Developed, No Apparent Distress and Poor Appetite
Respiratory: Clear
GI: Soft and Non Tender
Genito-urinary: No Costovertebral Tend
Psych: Calm and Intact Judgement
Assessment / Plan
-
69F with metastatic pancreatic cancer
admitted with recurrent SBO likely due to pelvic soft tissue mass/metastatic focus
New left hydroureteronephrosis
- Discussed options for management of malignant ureteral obstruction and primarily recommend left nephrostomy tube as most effective management option for preserving kidney function
- Discussed alternative intervention with ureteral stent placement, which may be initially effective but likely to eventually fail depending on tumor progression
- Given normal renal function, observation and trending of renal function with NM renal scan is a viable option. Reviewed that unaddressed obstruction can lead to permanent kidney damage or increased risk of infections, though her contralateral
kidney alone is likely adequate in the predatory animal exterminator
Patient to consider options
Possible interventions during this admission vs outpatient management and repeat evaluations
--- NOTE | 2024-12-31 20:02 | PTCARENOTE ---
Pt arrived to unit around 1830 from ED. Pt and daughters oriented to room. All needs met at this time.
[2024-12-31] MEDS: MORPHINE SULFATE 2 MG IV (20:37)
[2024-12-31 23:00] VITALS: BP 165/89
[2025-01-01] MEDS: MORPHINE SULFATE 2 MG IV ×6 (03:34→21:15)
[2025-01-01 06:18] LABS: Hematocrit 29.4 % (37.0-47.0); Hemoglobin 9.6 g/dL (12.0-16.0); Mean Corp Hgb Conc. 32.7 g/dL (33.0-37.0); Mean Corpuscular Hgb 26.7 pg (27.0-31.0); Mean Corpuscular Volume 81.9 fL (81.0-99.0); Mean Platelet Volume 9.5 fL (7.4-10.4); Platelet Count 386 10^3/uL (130-400); Red Blood Cell Count 3.59 10^6/uL (4.20-5.40)
[2025-01-01 06:23] LABS: INR 0.98; PT 13.3 Sec (11.4-14.6)
[2025-01-01 06:37] LABS: ALT (SGPT) 76 U/L (0-35); AST (SGOT) 106 U/L (14-36); Albumin 3.2 g/dl (3.5-5.0); Blood Urea Nitrogen 13 mg/dl (7-17); Carbon Dioxide 27 mmol/L (22-30); Chloride 106 mmol/L (98-107); Creatine Phosphokinase < 20 U/L (30-135); Estimated Creatinine Clearance 66 ml/min; Glucose 136 mg/dl (70-99); Potassium 4.4 mmol/L (3.5-5.1); Sodium 139 mmol/L (135-145); Total Bilirubin 1.8 mg/dl (0.2-1.3); Total Protein 6.3 g/dl (6.3-8.2); eGFR > 60.00
[2025-01-01 06:47] LABS: Alkaline Phosphatase 238 U/L (38-126)
[2025-01-01 07:00] VITALS: BP 165/79
[2025-01-01] MEDS: D5/0.45%NSS with KCL 20 MEQ 1000 IV ×2 (07:05→17:39)
--- NOTE | 2025-01-01 07:46 | W.PN.HOSP.TC ---
Addendum entered and electronically signed by Amadeo Saleh MD 01/01/25 13:18:
Seen and examined by me independently in collaboration with the medical dosimetrist.
Lab data and imaging data reviewed.
Addendum as below :
Patient with NG tube to intermittent suction. Had bowel movement today. Abdominal distention is better but abdominal pain is relentless. It is intermittent and crampy. Abdomen soft nondistended, hypoactive bowel sounds. Generalized discomfort
in the belly without rebound guarding rigidity. Abdominal x-ray today shows movement of contrast to the ascending colon indicating probably partial small bowel obstruction as there is still dilated loops.
Discussed with the general surgery-continue with the current NG tube. Continue with IV fluids.
Increase frequency of pain medication.
Appreciate urology input who recommends percutaneous nephrostomy tube on the left side. IR consulted.
Discussed with family at bedside
Total time spent on today's encounter was 52 minutes which included time spent in counseling the patient/family regarding diagnosis and treatment plan as listed above, goals of care, and symptom management. Case was discussed with nursing staff,
specialists, and care coordinators/case management. All labs and imaging personally reviewed by me. Remainder the time spent in detailed review of previous records, lab data, imaging, and other medical provider documentation.
Original Note:
Today's Communication/Plan
-
Continue NG tube with low intermittent suction
Left-sided nephrostomy tube
Keep n.p.o. and continue IV fluids
Replete electrolytes as needed
Assessment / Plan
Assessment / Plan
IMPRESSION:
Patient is a 69-year-old female with history of metastatic pancreatic cancer currently on palliative chemotherapy, last treatment was 5 weeks ago and she is following up with Dr. Forte on outpatient basis. She has cancer of the pancreatic tail
and gets 6 monthly biliary ducts gleaning/stent exchange. She was recently discharged from the hospital 2 days ago after her biliary stents were removed and exchanged. At that time she felt her abdomen distention but attributed it to the recent
surgery. She had regular once daily bowel movements, today she also had a bowel movement. She noticed to be very nauseous, had dry heaves, was vomiting and there was abdominal pain for which she came to the ER. CT abdomen showed multiple small
bowel loop dilatations along with metastatic liver disease, left-sided hydronephrosis.
Patient admitted for management of partial small bowel obstruction, left-sided hydronephrosis and pain management.
Assessment/PLAN:
#Partial small bowel obstruction
NPO
Continue IV fluids
Continue NG tube to low intermittent wall suction
Optimize pain management
Surgery recommendations appreciated-okay to proceed with nephrostomy tube as per urology for left-sided hydronephrosis
abdominal x-ray01/01-Showed severe air distention of proximal bowels but small amount of contrast material in ascending colon which appears to have passed from small bowel since 12/31
Continue to monitor
#Left-sided hydronephrosis
Based on CT, moderate to severe left-sided hydronephrosis secondary to obstruction
Input output monitoring
Temperature charting, WBC monitoring, renal function test monitoring
Urology consult appreciated-recommended left-sided nephrostomy tube for malignant ureteral obstruction-IR consulted for nephrostomy tube
#Essential hypertension secondary to pain-Optimize pain management
# Pancreatic cancer with biopsy-proven liver mets-consult heme-onc, patient is currently on palliative chemotherapy and follows up with Dr. Forte
# Depression-Hold oral medications for now
DVT prophylaxis-enoxaparin 40 mg every afternoon
CODE STATUS-DNR
Anticipated Discharge: 24 - 48 hours
Subjective/Interval History
-
Date of Service: January 01, 2025
Patient still has abdominal pain, rates 6/10 at rest and 7 -8/10 when she has the spasm
Still feels nauseous
Had a bowel movement this morning
Objective Data
-
Labs:
Laboratory Results
01/01/25
05:37
WBC 13.0 H
Hgb 9.6 L
Hct 29.4 L
Plt Count 386
PT 13.3
INR 0.98
Sodium 139
Potassium 4.4
Chloride 106
Carbon Dioxide 27
BUN 13
Creatinine 0.6
Glucose 136 H
Calcium 9.0
Total Bilirubin 1.8 H
AST 106 H
ALT 76 H
Alkaline Phosphatase 238 H
Vital Signs:
Vital Signs
Temp Pulse Resp BP Pulse Ox
97.8 F 72 16 165/89 98
12/31/24 23:00 12/31/24 23:00 12/31/24 23:00 12/31/24 23:00 12/31/24 23:00
I&O
12/31/24 01/01/25 01/02/25
06:59 06:59 06:59
Intake Total 120 / 120
Balance 120 / 120
Review of Systems
-
All other systems: Reviewed and negative
Physical Exam
-
General: Appears in Distress, Appears Chronically Ill, Cachectic and Other (Pale appearing)
Respiratory: Clear to Auscultation; Negative Wheezes, Rales or Rhonchi
Cardiac: Regular Rhythm, S1/S2 and Tachycardic
GI: Soft, Normal Bowel Sounds, Tender (Diffuse tenderness more in upper quadrants) and Distended
Musculoskeletal: No Clubbing, No Cyanosis and No Edema
Skin: Warm and Dry
Neuro: Awake, AO x 3 and Nonfocal/Grossly Intact
Psych: Calm
[2025-01-01] MEDS: ZOFRAN 4 MG IV ×3 (07:52→21:38)
[2025-01-01 08:49] VITALS: BMI 17.4
--- NOTE | 2025-01-01 10:33 | W.PN.URO.CBU ---
Today's Communication / Plan
-
Left nephrostomy tube
Assessment / Plan
-
69F with metastatic pancreatic cancer
admitted with recurrent SBO likely due to pelvic soft tissue mass/metastatic focus
New left hydroureteronephrosis
- Discussed options for management of malignant ureteral obstruction and primarily recommend left nephrostomy tube as most effective management option for preserving kidney function
- Patient is agreeable to proceed with nephrostomy placement
- IR consulted for tube placement - to proceed if okay per surgery and hospitalist
Diagnosis
-
Date of Service: January 01, 2025
-
Patient Diagnosis:
Metastatic pancreatic cancer
Malignant left ureteral obstruction
SBO
Post Op Day:
Subjective
-
Pain controlled
Objective
-
Vital Signs
Temp Pulse Resp BP Pulse Ox
98.4 F 66 18 165/79 99
01/01/25 07:00 01/01/25 07:00 01/01/25 07:00 01/01/25 07:00 01/01/25 07:00
Intake and Output
12/31/24 01/01/25 01/02/25
06:59 06:59 06:59
Intake Total 120 / 120
Balance 120 / 120
Intake:
Oral fluids 120 / 120
Other:
Number of approximated MODERATE 1
amounts of urine
Laboratory Results
01/01/25 05:37
01/01/25 05:37
Physical Exam
-
General - well developed, frail, no acute distress
Chest - clear
Abdomen - soft, non distended
--- NOTE | 2025-01-01 11:06 | W.PN.GS2 ---
Today's Communication / Plan
-
Continue NG tube to low intermittent wall suction
Assessment / Plan
-
This is a 69-year-old female with known history of metastatic pancreatic cancer on palliative chemotherapy, last treatment 5 weeks ago who presents with abdominal pain, nausea and vomiting found to have recurrent malignant small bowel obstruction in
the setting of similar previous episodes treated at [place].
Continue NG tube to low intermittent wall suction.
N.p.o., IV fluids, replete electrolytes as needed
Appreciate urology recommendations
Had a lengthy conversation with both the patient and family regarding a venting PEG tube, as well as of the natural history of malignant small bowel obstructions.They will discuss together before moving forward with this procedure.
Time Spent
Total Time Spent with Patient (in minutes): 20
Subjective Data
-
Date of Service: January 01, 2025
Interval Events:
No acute events overnight. Slept well. Pain improved. Denies Nausea/Vomiting, had a bowel movement but still not passing flatus.
Objective Data
-
Intake and Output
12/31/24 01/01/25 01/02/25
06:59 06:59 06:59
Intake Total 120 / 120
Balance 120 / 120
Intake:
Oral fluids 120 / 120
Other:
Number of approximated MODERATE 1
amounts of urine
Vital Signs
Temp Pulse Resp BP Pulse Ox
98.4 F 66 18 165/79 99
01/01/25 07:00 01/01/25 07:00 01/01/25 07:00 01/01/25 07:00 01/01/25 07:00
Lab Results
01/01/25 05:37
01/01/25 05:37
Calcium 9.0 mg/dl (8.4-10.2) 01/01/25 05:37
Total Bilirubin 1.8 mg/dl (0.2-1.3) H 01/01/25 05:37
AST 106 U/L (14-36) H 01/01/25 05:37
ALT 76 U/L (0-35) H 01/01/25 05:37
Alkaline Phosphatase 238 U/L (38-126) H 01/01/25 05:37
Total Protein 6.3 g/dl (6.3-8.2) 01/01/25 05:37
Albumin 3.2 g/dl (3.5-5.0) L 01/01/25 05:37
Physical Exam
-
GENERAL/NEURO: Awake, Alert, no distress, looks tired
CHEST: Unlabored breathing on RA
ABDOMEN: Soft, thin, mildly tender, mildly distended, NG tube with clear output
Patient has a herrera catheter: No
Patient has a central line: No
[2025-01-01 11:47] LABS: Urine Albumin 1+ (Neg - Trace); Urine Bilirubin Negative (Negative); Urine Character Clear (Clear); Urine Color Yellow; Urine Glucose Negative (Negative); Urine Ketone 2+ (Negative); Urine Leukocyte Negative (Negative); Urine Nitrite Negative (Negative); Urine Occult Blood Negative (Negative); Urine Specific Gravity 1.015 (<1.030); Urine Urobilinogen 1+ (Neg - 1+)
[2025-01-01 12:00] LABS: Urine Bacteria Few (Negative)
--- NOTE | 2025-01-01 12:04 | CON.ONC ---
Consultation
-
Date Consultation Performed: 01/01/25
Requesting Provider: Gilbert Yang MD, Resident
Performing Provider: Aditya Che MD
Reason for Consultation: pancreati cancer
Impression
Impression
stage IV pancreatic cancer
SBO
obstructive uropathy
Plan
Plan
1. SBO - which may be secondary to apparent malignant process -poorly defined pelvic soft tissue mas
-NG tube
-surgery following
-considering venting PEG
2. Obstructive uropathy - w/ CT imaging revealing pelvic mass appearing to occlude the distal left ureter with moderate to severe left hydronephrosis
-urology following
-for left percutaneous nephrostomy tube
3. Stage IV pancreatic cancer
-discussed CT imaging w/ patient and family - which appears to demonstrate progression of disease
-additional discussions will need to be had w/ Dr. Forte, patient's primary oncologist, regarding overall plan of care
Will continue to follow with you.
Patient History
History of Present Illness
69y/o female seen in consultation today regarding h/o metastatic pancreatic cancer.
The patient is followed by Dr. Forte, and has been on treatment since January 2023. She was initially treated w/ FOLFIRINOX, and now more recently is receiving gemcitabine/ abraxane.
She was hospitalized at [facility] about a week ago w/ elevated bilirubin, undergoing ERCP w/ stent exchange.
She now presents to [facility] w/abdominal pain and distension. CT imaging yesterday 12/31 revealed findings compatible w/ SBO, which appears to be secondary to poorly defined pelvic soft tissue mass, which may represent serosal metastatic
disease. The mass appearer to also occlude the distal left ureter with moderate to severe left hydronephrosis. Small volume of abdominal and pelvic ascites was appreciated along w/hepatic metastatic disease with the largest lesion measuring 2.5
cm.Biliary stents were in place with mild intrahepatic ductal dilatation.
She has been seen by surgery w/ discussions around possible role for venting PEG tube. Urology has evaluated patient and plans are underway for placement of left neprhostomy tube w/ IR.
Clinically, the patient feels slightly better today w/ NG tube in place. She has continued abdominal pain and fullness. No nausea. No SOB at rest or chest pain. No palpitations.
Past-Medical/Surgical History
PMH:
stage IV pancreatic cancer
HTN
Depression
Partial small bowel obstruction x 3 resolved with medical treatment
Left-sided hydronephrosis
PSH:
ERCP w/ stent x2
[place] tooth extraction
port a cath
Social History
Tobacco: Non-smoker
Alcohol: None
Family History
Family History: Not pertinent
Allergies:
sulfa
Patient Medication
�Medication �Instructions �Recorded �Confirmed �Last Taken �Type
fluoxetine 40 mg capsule 40 mg PO DAILY Depression 04/22/24 12/31/24 Unknown History
naltrexone 4.5 mg capsule 4.5 mg PO HS Pain 04/22/24 12/31/24 Unknown History
ondansetron HCl 8 mg tablet 8 mg PO Q8HPRN PRN nausea 04/22/24 12/31/24 Unknown History
cholecalciferol (vitamin D3) 25 25 mcg PO DAILY Supplement 12/24/24 12/31/24 Unknown History
mcg (1,000 unit) tablet
prochlorperazine maleate 10 mg 10 mg PO Q6HPRN PRN nausea 12/24/24 12/31/24 Unknown History
tablet
vitamin K2 40 mcg tablet 40 mcg PO DAILY Supplement 12/24/24 12/31/24 Unknown History
zinc sulfate 50 mg zinc (220 mg) 50 mg PO DAILY Supplement 12/24/24 12/31/24 Unknown History
tablet
gabapentin 300 mg capsule 300 mg PO HS #30 caps 12/29/24 12/31/24 Unknown Rx
Active Medications
Generic Name Dose Route Start Last Admin
Trade Name Freq PRN Reason Stop Dose Admin
Enoxaparin Sodium 40 mg 12/31/24 18:00 12/31/24 18:42
Enoxaparin Sodium 40 Mg/0.4 Ml Syringe SC 01/28/25 17:59 40 mg
QPM RUPINDER Administration
Potassium Chloride/Dextrose/Sod Cl 20 meq in 1,000 mls @ 100 mls/hr 12/31/24 17:00 01/01/25 07:05
D5/0.45%Nss With Kcl 20 Meq IV 1,000 mls
.Q10H RUPINDER Administration
Morphine Sulfate 2 mg 01/01/25 10:54 01/01/25 11:07
Morphine 2 Mg/Ml Syringe IV 01/15/25 10:53 2 mg
Q2HPRN PRN Administration
severe pain
Ondansetron HCl 4 mg 12/31/24 17:59 01/01/25 07:52
Ondansetron 4 Mg/2 Ml Vial IV 01/28/25 17:58 4 mg
Q6HPRN PRN Administration
NAUSEA/VOMITING
Prochlorperazine Edisylate 5 mg 12/31/24 16:47
Prochlorperazine 10 Mg/2 Ml Vial IV 01/28/25 16:46
Q6HPRN PRN
nausea and vomiting
Sodium Chloride 0 flush 12/31/24 19:00
Sodium Chloride 0.9% (Flush) Syringe IV 01/28/25 18:59
PER PROTOCOL RUPINDER
Review of Systems
-
A ROS was performed w/ pertinent findings as per HPI.
Physical Exam
-
General: No Apparent Distress and Appears Chronically Ill
HEENT: Negative Jaundice
Cardiology: Normal Sinus Rhythm
Pulmonary: Clear
GI: Soft and Distended
Extremities: No C/C/E
Neurology: Non Focal
Labs
Lab Results
WBC 13.0 10^3/uL (4.8-10.8) H 01/01/25 05:37
RBC 3.59 10^6/uL (4.20-5.40) L 01/01/25 05:37
Hgb 9.6 g/dL (12.0-16.0) L 01/01/25 05:37
Hct 29.4 % (37.0-47.0) L 01/01/25 05:37
MCV 81.9 fL (81.0-99.0) 01/01/25 05:37
MCH 26.7 pg (27.0-31.0) L 01/01/25 05:37
MCHC 32.7 g/dL (33.0-37.0) L 01/01/25 05:37
RDW 22.0 % (11.5-14.5) H 01/01/25 05:37
Plt Count 386 10^3/uL (130-400) 01/01/25 05:37
MPV 9.5 fL (7.4-10.4) 01/01/25 05:37
Abs Immat Gran (auto) 0.1 10^3/uL (0-0.05) H 12/31/24 10:49
Absolute Neuts (auto) 11.4 10^3/uL (1.4-6.5) H 12/31/24 10:49
Absolute Lymphs (auto) 1.8 10^3/uL (1.2-3.4) 12/31/24 10:49
Absolute Monos (auto) 0.8 10^3/uL (0.1-0.6) H 12/31/24 10:49
Absolute Eos (auto) 0.0 10^3/uL (0-0.7) 12/31/24 10:49
Absolute Basos (auto) 0.0 10^3/uL (0-0.2) 12/31/24 10:49
Immature Gran % 0.5 % (0-0.5) 12/31/24 10:49
Neutrophils % 80.6 % (42.2-75.2) H 12/31/24 10:49
Lymphocytes % 12.9 % (20.5-51.1) L 12/31/24 10:49
Monocytes % 5.5 % (1.7-9.3) 12/31/24 10:49
Eosinophils % 0.2 % (0-6) 12/31/24 10:49
Basophils % 0.3 % (0-2) 12/31/24 10:49
Creatinine 0.6 mg/dL (0.6-1.0) 01/01/25 05:37
Vital Signs
Vital Signs
Temp Pulse Resp BP Pulse Ox
98.4 F 66 18 165/79 99
01/01/25 07:00 01/01/25 07:00 01/01/25 07:00 01/01/25 07:00 01/01/25 07:00
--- NOTE | 2025-01-01 13:26 | CM ---
Patient seen at bedside with 2 daughters
IA completed
CM role explained
Dx: SBO
PMH: stage IV pancreatic cancer
she states follows [facility] in [facility] last chemo approx 5wks ago
Lives currently with daughter Cecilia in [place], [place] in a 1 story home, 12 steps to enter home in the front, 4 steps through back of house.
PLOF: Independent
Denies DME
Denies VN/Rehab
Denies Insecurities
PCP: Giselle Hughes
PHARMACY: currently since staying with daughter - [facility], [address], [place], [place]
PLAN: TBD, CM to follow hospital progress for needs
[2025-01-01 15:00] VITALS: BP 148/77
[2025-01-01] MEDS: LOVENOX 40 MG SC (18:09)
[2025-01-01 23:32] VITALS: BP 189/90
[2025-01-02] VITALS (15 sets, daily range): BP systolic 57–186; BP diastolic 68–90; BMI 16.7
[2025-01-02] MEDS: TORADOL 30 MG IV (00:24)
[2025-01-02] MEDS: D5/0.45%NSS with KCL 20 MEQ IV (02:01)
[2025-01-02] MEDS: D5/0.45%NACL 1000 IV ×2 (04:06→15:09)
--- NOTE | 2025-01-02 06:13 | W.PN.UPDATE ---
Update Note
Progress Note Update
~0015�Pt still with increased pain despite 2mg�Morphine Q2H. x1 Toradol given- for complaints of increased 'fullness'.�
~0130�WHOLESALE DIAMOND BROKER into assess pt- Pt verbalized Toradol worked well and she is currently pain free- abdomen felt soft on assessment with hyper active bowel sounds. NGT still in place draining appropriately. She noted a soft BM today on dayshift and she has
been getting up to the BSC to void without difficulty. No complaints of back pain for sharp shooting abdominal�pain- only 'fullness'. IVF re-ordered.
[2025-01-02 06:21] LABS: Hematocrit 29.9 % (37.0-47.0); Hemoglobin 9.8 g/dL (12.0-16.0); Mean Corp Hgb Conc. 32.8 g/dL (33.0-37.0); Mean Corpuscular Hgb 26.9 pg (27.0-31.0); Mean Corpuscular Volume 82.1 fL (81.0-99.0); Mean Platelet Volume 10.1 fL (7.4-10.4); Platelet Count 372 10^3/uL (130-400); Red Blood Cell Count 3.64 10^6/uL (4.20-5.40); Red Cell Dist. Width 21.7 % (11.5-14.5); White Blood Cell Count 12.5 10^3/uL (4.8-10.8)
[2025-01-02 06:36] LABS: Blood Urea Nitrogen 9 mg/dl (7-17); Calcium 9.2 mg/dl (8.4-10.2); Carbon Dioxide 28 mmol/L (22-30); Chloride 106 mmol/L (98-107); Estimated Creatinine Clearance 66 ml/min; Magnesium 1.7 mg/dl (1.6-2.3); Potassium 4.2 mmol/L (3.5-5.1); Sodium 138 mmol/L (135-145); eGFR > 60.00
[2025-01-02 06:46] LABS: Glucose 149 mg/dl (70-99)
--- NOTE | 2025-01-02 07:14 | PTCARENOTE ---
Pt continues to c/o abdominal pain and fullness despite prn 2 mg morphine q2h. SENIOR INTERNATIONAL TAX MANAGER made aware, toradol ordered and administered @0024. SENIOR INTERNATIONAL TAX MANAGER in to see patient approximately 0130. Patient started sleeping after seen by SENIOR INTERNATIONAL TAX MANAGER and has not c/o of any abdominal
pain since or fullness. During walking rounds at change of shift, pt alert, stated pain was only 2/10 and she was able to rest with toradol. NG tube in place and continues on low intermittent suction with 300 ml this shift.
--- NOTE | 2025-01-02 07:49 | W.PN.HOSP.TC ---
Addendum entered and electronically signed by Amadeo Saleh MD 01/02/25 15:03:
Seen and examined by me independently in collaboration with the medical field representative.
Lab data and imaging data reviewed.
Addendum as below :
The patient has improved abdominal pain and she associates it to the introduction of Toradol. No further bowel movement or passing yesterday. NG tube still in place.
Status post left percutaneous nephrostomy for decompression from malignant left ureteral obstruction.
General surgery and urology following.
Original Note:
Today's Communication/Plan
-
Optimize pain management-add Toradol
Continue to monitor bowel sounds
Left-sided nephrostomy tube
Surgery considering venting PEG tube
Assessment / Plan
Assessment / Plan
IMPRESSION:
Patient is a 69-year-old female with history of metastatic pancreatic cancer currently on palliative chemotherapy, last treatment was 5 weeks ago and she is following up with Dr. Forte on outpatient basis. She has cancer of the pancreatic tail
and gets 6 monthly biliary ducts gleaning/stent exchange. She was recently discharged from the hospital 2 days ago after her biliary stents were removed and exchanged. At that time she felt her abdomen distention but attributed it to the recent
surgery. She had regular once daily bowel movements, today she also had a bowel movement. She noticed to be very nauseous, had dry heaves, was vomiting and there was abdominal pain for which she came to the ER. CT abdomen showed multiple small
bowel loop dilatations along with metastatic liver disease, left-sided hydronephrosis.
Patient admitted for management of partial small bowel obstruction, left-sided hydronephrosis and pain management.
Assessment/PLAN:
#Partial small bowel obstruction
NPO
Continue IV fluids
Continue NG tube to low intermittent wall suction-525 mL NG output
Optimize pain management-added Toradol
Surgery recommendations appreciated-considering venting PEG tube, discussed with the family
Since NG is still producing output-will keep n.p.o.-continue to monitor and follow surgery recommendations regarding PEG tube
#Left-sided hydronephrosis
Based on CT, moderate to severe left-sided hydronephrosis secondary to obstruction
Input output monitoring
Temperature charting, WBC monitoring, renal function test monitoring
Urology consult appreciated-recommended left-sided nephrostomy tube for malignant ureteral obstruction-IR consulted for nephrostomy tube
#Essential hypertension secondary to pain-Optimize pain management
# Pancreatic cancer with biopsy-proven liver mets-consult heme-onc, patient is currently on palliative chemotherapy and follows up with Dr. Forte-cancer progressing as per [id number] prognosis with family
# Depression-Hold oral medications for now
DVT prophylaxis-enoxaparin 40 mg every afternoon
CODE STATUS-DNR
Anticipated Discharge: > 48 hours
Subjective/Interval History
-
Date of Service: January 02, 2025
Abdominal pain yesterday night, relieved by Toradol, feels a lot better today, having a lot of NG output
Last bowel yesterday morning
Complains of abdominal fullness
Objective Data
-
Labs:
Laboratory Results
01/02/25
05:38
WBC 12.5 H
Hgb 9.8 L
Hct 29.9 L
Plt Count 372
Sodium 138
Potassium 4.2
Chloride 106
Carbon Dioxide 28
BUN 9
Creatinine 0.5 L
Glucose 149 H
Calcium 9.2
Vital Signs:
Vital Signs
Temp Pulse Resp BP Pulse Ox
98.5 F 72 18 145/74 100
01/01/25 23:32 01/02/25 03:19 01/01/25 23:32 01/02/25 03:19 01/01/25 23:32
I&O
01/01/25 01/02/25 01/03/25
06:59 06:59 06:59
Intake Total 210 / 210 40 / 40
Output Total 300 / 300 525 / 525
Balance -90 / -90 -485 / -485
Review of Systems
-
All other systems: Reviewed and negative
Physical Exam
-
General: Appears Chronically Ill, Cachectic and Other (NG tube in place with output of 525 mL)
HEENT: Moist Mucous Membranes
Respiratory: Clear to Auscultation; Negative Wheezes, Rales or Rhonchi
Cardiac: Regular Rhythm and S1/S2; Negative Murmur or Rub
GI: Soft, Tender, Distended (With slitlike umbilicus, dull percussion note) and Other (Bowel sounds present)
Musculoskeletal: No Clubbing, No Cyanosis and No Edema
Skin: Warm and Dry
Neuro: Awake, AO x 3 and Nonfocal/Grossly Intact
Psych: Calm
[2025-01-02] MEDS: OFIRMEV 100 IV ×3 (08:01→21:01)
[2025-01-02] MEDS: ANCEF 10 IV (10:25)
--- NOTE | 2025-01-02 14:23 | W.PN.URO.CBU ---
Today's Communication / Plan
-
Maintain left nephrostomy
Outpatient follow up, info given
Please call with further questions
Assessment / Plan
-
69F with metastatic pancreatic cancer
admitted with recurrent SBO likely due to pelvic soft tissue mass/metastatic focus
New left hydroureteronephrosis
- Discussed options for management of malignant ureteral obstruction and primarily recommend left nephrostomy tube as most effective management option for preserving kidney function
- s/p placement of left nephrostomy tube 01/02/25
- Discussed city comptroller management and tube changes about every 3 months
- Outpatient follow up in 1 month to discuss alternative treatment options such as metal ureteral stent or PCNU
Provided contact info to arrange follow up
Will sign off - please call with further questions
Diagnosis
-
Date of Service: January 02, 2025
-
Patient Diagnosis:
Metastatic pancreatic cancer
Malignant left ureteral obstruction
SBO
Post Op Day:
Subjective
-
tolerated PCN placement this AM
Objective
-
Vital Signs
Temp Pulse Resp BP Pulse Ox
97.9 F 65 18 135/74 99
01/02/25 11:15 01/02/25 11:20 01/02/25 11:20 01/02/25 11:20 01/02/25 11:20
Intake and Output
01/01/25 01/02/25 01/03/25
06:59 06:59 06:59
Intake Total 210 / 210 40 / 40
Output Total 300 / 300 525 / 525
Balance -90 / -90 -485 / -485
Intake:
Oral fluids 120 / 120
Amount instilled into GI Tube ( 90 / 90 40 / 40
Total)
[place] Sump 90 / 90 40 / 40
Output:
Gastrointestinal tube output ( 300 / 300 525 / 525
Total)
[place] Sump 300 / 300 525 / 525
Other:
Number of approximated MODERATE 1 1
amounts of urine
Number of approximated LARGE 1
amounts of urine
Laboratory Results
01/02/25 05:38
01/02/25 05:38
Physical Exam
-
General - well developed, well nourished, no acute distress
Chest - clear bilaterally
Abdomen - soft, non-tender, positive bowel sounds, no CVAT, no incisional pain or distention
PCN in place, light red
--- NOTE | 2025-01-02 15:44 | CM ---
chart reviewed
left percutaneous nephrostomy tube placement today, NGT, pain mgmt
PLAN: TBD, follow hospital progress, CM follow for needs
[2025-01-02] MEDS: LOVENOX 40 MG SC (18:19)
[2025-01-03] VITALS (8 sets, daily range): BP systolic 118–160; BP diastolic 67–86
[2025-01-03] MEDS: D5/0.45%NACL 1000 IV (00:55)
[2025-01-03] MEDS: OFIRMEV 100 IV (02:54)
[2025-01-03 06:24] LABS: Hematocrit 31.7 % (37.0-47.0); Mean Corp Hgb Conc. 31.5 g/dL (33.0-37.0); Mean Corpuscular Volume 82.3 fL (81.0-99.0); Mean Platelet Volume 9.8 fL (7.4-10.4); Platelet Count 358 10^3/uL (130-400); Red Blood Cell Count 3.85 10^6/uL (4.20-5.40); Red Cell Dist. Width 21.4 % (11.5-14.5); White Blood Cell Count 8.4 10^3/uL (4.8-10.8)
[2025-01-03 07:01] LABS: Blood Urea Nitrogen 10 mg/dl (7-17); Carbon Dioxide 35 mmol/L (22-30); Chloride 99 mmol/L (98-107); Estimated Creatinine Clearance 64 ml/min; Glucose 134 mg/dl (70-99); Potassium 3.1 mmol/L (3.5-5.1); Sodium 138 mmol/L (135-145); eGFR > 60.00
--- NOTE | 2025-01-03 08:24 | W.PN.GS2 ---
Today's Communication / Plan
-
Venting PEG placement
Assessment / Plan
-
This is a 69-year-old female with known history of metastatic pancreatic cancer on palliative chemotherapy, last treatment 5 weeks ago who presents with abdominal pain, nausea and vomiting found to have recurrent malignant small bowel obstruction in
the setting of similar previous episodes treated at [place].
AFVSS
No leukocytosis
No flatus/stools, still with elevated bilious NGT outputs
Plan:
Continue NG tube to low intermittent wall suction
N.p.o., IV fluids, replete electrolytes as needed
Appreciate urology recommendations, left PCN placed on 01/02/25
Resumed conversation with both the patient and family regarding a venting PEG tube, as well as of the natural history of malignant small bowel obstructions.They would like to move forward with this procedure, will consult GI to arrange
Subjective Data
-
Date of Service: January 03, 2025
Patient seen and examined at bedside with daughter present. Denies n/v. Pain improved from previous. Distention persists. Not passing flatus/stools.
Objective Data
-
Intake and Output
01/02/25 01/03/25 01/04/25
06:59 06:59 06:59
Intake Total 40 / 40 1440 / 1440
Output Total 525 / 525 1750 / 1750
Balance -485 / -485 -310 / -310
Intake:
Oral fluids 0 / 0
IV fluids (Total) 1150 / 1150
IV piggybacks 200 / 200
Amount instilled into GI Tube ( 40 / 40 90 / 90
Total)
Thermal Sump 40 / 40 90 / 90
Output:
Urinary Drain Output (Total) 375 / 375
Left Nephrostomy 375 / 375
Gastrointestinal tube output ( 525 / 525 1375 / 1375
Total)
Thermal Sump 525 / 525 1375 / 1375
Other:
Number of approximated MODERATE 1 1
amounts of urine
Number of approximated LARGE 1 5
amounts of urine
Vital Signs
Temp Pulse Resp BP Pulse Ox
98.7 F 58 16 151/67 98
01/03/25 07:35 01/03/25 07:35 01/03/25 07:35 01/03/25 07:35 01/03/25 07:35
Lab Results
01/03/25 05:32
01/03/25 05:32
Calcium 9.0 mg/dl (8.4-10.2) 01/03/25 05:32
Magnesium 1.7 mg/dl (1.6-2.3) 01/02/25 05:38
Total Bilirubin 1.8 mg/dl (0.2-1.3) H 01/01/25 05:37
AST 106 U/L (14-36) H 01/01/25 05:37
ALT 76 U/L (0-35) H 01/01/25 05:37
Alkaline Phosphatase 238 U/L (38-126) H 01/01/25 05:37
Total Protein 6.3 g/dl (6.3-8.2) 01/01/25 05:37
Albumin 3.2 g/dl (3.5-5.0) L 01/01/25 05:37
Physical Exam
-
GENERAL/NEURO: Awake, Alert, no distress, looks tired
CHEST: Unlabored breathing on RA
ABDOMEN: Soft, thin, nontender, distended, NG tube with bilious output
Patient has a herrera catheter: No
Patient has a central line: No
[2025-01-03] MEDS: PROTONIX IV 40 MG IV (08:39)
[2025-01-03] MEDS: NSS (PRESERVATIVE FREE) 10 ML IV (08:39)
--- NOTE | 2025-01-03 09:04 | CON.GI ---
Addendum entered and electronically signed by Joseline Sanchez MD 01/03/25 10:10:
I saw and examined the patient.
The CLINICAL QUALITY ANALYST's note was reviewed and I agree with the note.
Comment: This is an unfortunate 69-year-old female with metastatic pancreatic cancer with liver mets and pelvic soft tissue mass and prior recurrent small bowel obstructions which resolved with NG tube placement and decompression. She was diagnosed
in [address] Forte and was on Palliative chemotherapy last chemo was about 5 weeks ago she also has a history of malignant biliary stricture and had ERCP with stents with Dr. Bolden and recently on 12/28 had a stent exchange and also was
noted to have CBD stone and had removal of the stone with sphincterotomy also. She now presents on 12/31/2024 with symptoms of nausea vomiting and abdominal pain and was diagnosed with small bowel obstruction secondary to large pelvic soft tissue
mass considered to be metastatic lesion with obstructive uropathy she is status post left nephrostomy tube and has been seen by general surgery also and we were consulted by Dr. Galan today for venting G-tube for palliation. She currently has an
NG tube to intermittent suction.
Assessment and plan small bowel obstruction secondary to a metastatic pelvic soft tissue mass and with progression of disease discussed with Dr. Galan who also discussed with Dr. Forte her last palliative chemotherapy was about 5 weeks ago and
patient agreeable for a venting G-tube for palliation. Will schedule for EGD with PEG placement along with Dr. Galan today. Will give dose of Ancef prior and also getting K rider for low potassium.
Original Note:
Consultation
-
Date/Time Consultation Requested: 01/03/25812
Date/Time Consultation Performed: 01/03/25844
Requesting Provider: SILVIA Valadez
Performing Provider: Dr. Sanchez/SILVIA Stein
Reason for Consultation: EGD with venting G tube placement
Medical History
Chief Complaint / HPI
Chief Complaint: n/v/abd pain
History of Present Illness:
69 y.o female with past medical history of metastatic pancreatic cancer with liver mets (dx on 12/2022 with pancreatic tail lesion, s/p IR liver bx liver met) Followed by Dr. Forte as an outpatient currently on palliative chemo therapy last dose
5 weeks ago. She is status post ERCP on 12/28/24 for obstructed biliary stent, choledocholithiasis and biliary stricture with past ERCP 04/23/2024 for severe malignant stenosis in the distal third of the bile duct. a 10 mm x 4 cm covered SEMS was
placed with 7 Turkmen by 5 cm DPPS through it into the left hepatic duct. Who presented to ER on 12/31/24 with nausea, vomiting and abdominal pain. Found to have small bowel obstruction which may be secondary to pelvic soft tissue mass as well as
obstructive uropathy with severe left hydronephrosis. We are asked to evaluate for EGD/venting G-tube for palliation. The patient currently has an NG tube in and is feeling improved with such. She also had a left nephrostomy tube placed as well.
The patient is not passing any flatus. She has not had a bowel movement. Patient is already met with surgery and discussed venting PEG tube. She is agreeable for this. WBC 8.4, hemoglobin 10.0, hematocrit 31.7, platelets 358 sodium 138,
potassium 3.1, BUN 10, creatinine 0.5, glucose 134.
Past Medical History
Past Medical History: Other (Pancreatic cancer with liver mets, nausea 2/2 chemo)
Past Surgical History: and Other (Right chest wall port, ERCP 04/23/2024)
Social History
Tobacco: Non-Smoker
Alcohol: None
Drug: None
Personal:
Living: With Family
Family History
Family History: Reviewed & Not Pertinent
Allergies / Home Medications
Allergy/AdvReac Type Severity Reaction Status Date / Time
Sulfa (Sulfonamide Allergy Rash/HIVES Verified 12/31/24 09:51
Antibiotics)
�Medication �Instructions �Recorded
fluoxetine 40 mg capsule 40 mg PO DAILY Depression 04/22/24
naltrexone 4.5 mg capsule 4.5 mg PO HS Pain 04/22/24
ondansetron HCl 8 mg tablet 8 mg PO Q8HPRN PRN nausea 04/22/24
cholecalciferol (vitamin D3) 25 25 mcg PO DAILY Supplement 12/24/24
mcg (1,000 unit) tablet
prochlorperazine maleate 10 mg 10 mg PO Q6HPRN PRN nausea 12/24/24
tablet
vitamin K2 40 mcg tablet 40 mcg PO DAILY Supplement 12/24/24
zinc sulfate 50 mg zinc (220 mg) 50 mg PO DAILY Supplement 12/24/24
tablet
gabapentin 300 mg capsule 300 mg PO HS #30 caps 12/29/24
Review of Systems
-
All other systems: A 12 pt ROS was Negative except as stated above in HPI
Vital Signs
Temp Pulse Resp BP Pulse Ox
98.7 F 58 16 151/67 98
01/03/25 07:35 01/03/25 07:35 01/03/25 07:35 01/03/25 07:35 01/03/25 07:35
Physical Exam
Exam
General: No Apparent Distress
HEENT: Anicteric and Other (NG tube in place, bilious fluid)
Respiratory: Clear (Anterior)
Cardiac: Regular Rhythm
GI: Soft, Non Tender (Mild lower abdominal tenderness), Non Distended and Normal Bowel Sounds (Hypoactive)
Skin: Warm and Dry
Neuro: AO x 3
Psych: Calm
Results
WBC 8.4 10^3/uL (4.8-10.8) 01/03/25 05:32
Hgb 10.0 g/dL (12.0-16.0) L 01/03/25 05:32
Hct 31.7 % (37.0-47.0) L 01/03/25 05:32
MCV 82.3 fL (81.0-99.0) 01/03/25 05:32
Plt Count 358 10^3/uL (130-400) 01/03/25 05:32
Absolute Neuts (auto) 11.4 10^3/uL (1.4-6.5) H 12/31/24 10:49
PT 13.3 Sec (11.4-14.6) 01/01/25 05:37
INR 0.98 01/01/25 05:37
Sodium 138 mmol/L (135-145) 01/03/25 05:32
Potassium 3.1 mmol/L (3.5-5.1) L D 01/03/25 05:32
Chloride 99 mmol/L (98-107) 01/03/25 05:32
Carbon Dioxide 35 mmol/L (22-30) H 01/03/25 05:32
BUN 10 mg/dl (7-17) 01/03/25 05:32
Creatinine 0.5 mg/dL (0.6-1.0) L 01/03/25 05:32
Calcium 9.0 mg/dl (8.4-10.2) 01/03/25 05:32
Total Bilirubin 1.8 mg/dl (0.2-1.3) H 01/01/25 05:37
AST 106 U/L (14-36) H 01/01/25 05:37
ALT 76 U/L (0-35) H 01/01/25 05:37
Alkaline Phosphatase 238 U/L (38-126) H 01/01/25 05:37
Lipase 57 U/L (23-300) 12/31/24 10:49
Diagnostic Image Results:
Abdominal x-ray 01/01/2025:
1. Nasogastric tube terminating in the stomach.
2. Severe air distention of proximal small bowel loops which appears be secondary to a SEVERE PARTIAL SMALL BOWEL OBSTRUCTION.
3. Small amount of contrast material in the ascending colon which appears to have passed from the small bowel since 12/31/2024.
4. OBSTRUCTED DISTAL LEFT URETER with severe left ureteral and intrarenal collecting system dilatation.
5. Right upper quadrant metal and plastic biliary stents in place
CT abdomen and pelvis with IV and oral contrast 12/31/2024:
IMPRESSION:
1. Findings compatible with small bowel obstruction, which appears to be secondary to a poorly defined pelvic soft tissue mass, which may represent serosal metastatic disease. This mass also appears to occlude the distal left ureter with moderate
to severe left hydronephrosis.
2. Small volume of abdominal and pelvic ascites.
3. Hepatic metastatic disease with the largest lesion measuring 2.5 cm.
4. Biliary stents in place with mild intrahepatic ductal dilatation.
5. Additional findings above.
Prior GI Procedures:
12/28/24 ERCP - One visibly occluded stent from the common bile duct
was seen in the major papilla.
- One visibly occluded stent from the biliary tree was
seen in the major papilla.
- A filling defect consistent with a stone and sludge
was seen on the cholangiogram.
- A single moderate biliary stricture was found in the
middle third of the main bile duct. Uncertain if this
is new malignant stenosis/progression or distal
migration of existing SEMS. The stricture was
malignant appearing.
- Choledocholithiasis was found. Complete removal was
accomplished by balloon extraction.
- One stent was removed from the biliary tree.
- The biliary tree was swept and sludge was found.
- One plastic stent was placed into the left hepatic
duct.
- One plastic stent was placed into the right hepatic
duct.
ERCP 04/23/2024 (Dr. Bolden): - A single severe biliary stricture was found in the
lower third of the main bile duct.
- The upper third of the main bile duct, middle third
of the main bile duct, left main hepatic duct and
right main hepatic duct were severely dilated, with a
mass causing an obstruction.
- A pancreatic sphincterotomy was performed.
- One plastic stent was placed into the ventral
pancreatic duct.
- A biliary sphincterotomy was performed.
- One covered metal stent was placed into the common
bile duct.
- One plastic stent was placed into the left hepatic
duct.
Assessment / Plan
-
69 y.o female with past medical history of metastatic pancreatic cancer with liver mets (dx on 12/2022 with pancreatic tail lesion, s/p IR liver bx liver met) Followed by Dr. Forte as an outpatient currently on palliative chemo therapy last dose
5 weeks ago. She is status post ERCP on 12/28/24 for obstructed biliary stent, choledocholithiasis and biliary stricture with past ERCP 04/23/2024 for severe malignant stenosis in the distal third of the bile duct. a 10 mm x 4 cm covered SEMS was
placed with 7 Turkmen by 5 cm DPPS through it into the left hepatic duct. Who presented to ER on 12/31/24 with nausea, vomiting and abdominal pain. Found to have small bowel obstruction which may be secondary to pelvic soft tissue mass as well as
obstructive uropathy with severe left hydronephrosis. We are asked to evaluate for EGD/venting G-tube for palliation. CT scan with oral and IV contrast on 12/31/2024 show findings compatible with small bowel obstruction secondary to pelvic soft
tissue mass. Also appears to occlude left ureter with moderate to severe left hydronephrosis. Patient with improvement of nausea/vomiting and abdominal discomfort after NG tube placement. Abdominal x-ray on 12/31/2024 still shows distention of
small bowel loops secondary to severe partial small bowel obstruction. Contrast in the ascending colon passed from the small bowel since 12/31/2024. Right upper quadrant metal and plastic stents in place. Patient now status post left nephrostomy
tube on 01/02/2025. Agreeable for venting G-tube for palliation. Patient is currently NPO. Daughter at bedside. Will perform with Dr. Flood/surgery this morning.
Impression:
Metastatic pancreatic cancer
Partial small bowel obstruction secondary to apparent malignant process. Pelvic soft tissue masses.
Left hydronephrosis secondary to pelvic mass.
Plan:
- Plan on EGD with venting gastric tube this a.m.
- Patient n.p.o.
- Replace potassium currently 3.1. Will give potassium 40 mEq IV now. Discussed with RN, surgery, [place] text sent to internal medicine team.
- Ancef 2 g IV on-call for OR
- Continue pantoprazole 40 mg IV daily
- Further recommendations to be forthcoming.
-
-
Thank you for consultation and allowing me to participate in the patient's care. Please call the corrections specialist GI physician during the after hours with any questions or concerns.
--- NOTE | 2025-01-03 09:34 | W.PN.HOSP.TC ---
Addendum entered and electronically signed by Juan Miguel Jules MD 01/03/25 21:27:
Attending Addendum-
I saw and evaluated the patient. I reviewed the resident�s note and agree with findings and plan as documented in the resident�s note. Sub: seen post PEG. Complains of significant abd pain. No BM no flatus. Tearful. Seen with daughters. Feels
nauseous. no vom. denies fevers chill. Full 12 point ROS reviewed and negative except as documented Exam: Vitals reviewed in chart GEN-mild distress heart RRR lungs clear abd PEG in place TTP pos BS distended LE no edema nephrostomy tube in
place draining bloody urine
Plan:
#Partial small bowel obstruction- malignant
NPO
Continue IV fluids
Optimize pain management-add Toradol add Dilaudid
01/03-venting PEG tube placed
overall poor prognosis
family leaning towards hospice would like to d/w onc in am
comfort measures
#Left-sided hydronephrosis
Input output monitoring
01/02-IR placed nephrostomy tube
#Essential hypertension secondary to pain-Optimize pain management
#Stage 4 Pancreatic cancer with biopsy-proven liver mets-appreciate heme-onc input, patient is currently on palliative chemotherapy and follows up with Dr. Forte-cancer progressing as per [id number]-[id number] prognosis with family- poor prog, c/s
hospice, for further discussion with onc in am
#Depression-Hold oral medications for now
DVT prophylaxis-enoxaparin
CODE STATUS-DNR
ACP
Patient consented to discuss, was with daughters, time spent explanation of advance directives, changes in health status, patient�s health care wishes if the patient becomes unable to make health decisions, goals of care, code status, and prognosis
'there isnt anything else to do. i just want to oain to be controlled and i would like more information on hospice'- 16 minutes
Time spent coordinating care, review of plan of care with resident, personally reviewed previous records in EMR, med rec, labs, radiology, d/w nursing, family total time documented is exclusive of any additional time listed that was spent in advance
care planning discussion - 52 minutes
Original Note:
Today's Communication/Plan
-
;/
Assessment / Plan
Assessment / Plan
Assessment/plan
#Stage IV metastatic pancreatic cancer
#Partial small bowel obstruction secondary to above
-S/p EGD with PEG for venting 01/03
-GI input appreciated
-General Surgery input appreciated
-Continue IV fluids
-Pain management with IV Toradol, IV Dilaudid
-Given poor prognosis, family has made decision to lean towards hospice
-[employer] account manager consulted for hospice discussion
-Follows oncology (Dr. Forte), currently on palliative chemotherapy
#Left-sided hydronephrosis secondary to pelvic mass
CT abdomen- moderate to severe left-sided hydronephrosis secondary to obstruction
Urology following
S/p placement of left nephrostomy tube 01/02/2025
CODE STATUS DNR
DVT prophylaxis Lovenox
After discussion with family today, patient leaning towards hospice. [employer] account manager consulted for hospice discussion and to provide options to the family. Patient would also like to discuss with her oncologist (Dr. Forte) tomorrow for further
discussion regarding goals of care.
Anticipated Discharge: 24 - 48 hours
Subjective/Interval History
-
Date of Service: January 03, 2025
Objective Data
-
Labs:
Laboratory Results
01/03/25
05:32
WBC 8.4
Hgb 10.0 L
Hct 31.7 L
Plt Count 358
Sodium 138
Potassium 3.1 L D
Chloride 99
Carbon Dioxide 35 H
BUN 10
Creatinine 0.5 L
Glucose 134 H
Calcium 9.0
Vital Signs:
Vital Signs
Temp Pulse Resp BP Pulse Ox
98.7 F 58 16 151/67 98
01/03/25 07:35 01/03/25 07:35 01/03/25 07:35 01/03/25 07:35 01/03/25 07:35
I&O
01/02/25 01/03/25 01/04/25
06:59 06:59 06:59
Intake Total 40 / 40 1440 / 1440
Output Total 525 / 525 1750 / 1750
Balance -485 / -485 -310 / -310
Review of Systems
-
All other systems: Reviewed and negative (Except as documented)
Physical Exam
-
General: Pain (Abdominal pain) and Conversant
Respiratory: Clear to Auscultation; Negative Wheezes
Cardiac: Regular Rhythm and S1/S2
GI: Soft, Nondistended and Tender
Genito-urinary: Bloody Urine and Nephrostomy Tubes
Musculoskeletal: No Edema
Neuro: Awake, Alert, Oriented and AO x 3
Psych: Calm
[2025-01-03] MEDS: KCL 270 MEQ IV (09:35)
--- NOTE | 2025-01-03 10:31 | PTCARENOTE ---
Patient picked up for PEG placement this AM around 1030. NG tube clamped, approved by . No pain reported at time of departure. Report given to GI nurse.
--- NOTE | 2025-01-03 11:00 | OR.RPT ---
Addendum entered and electronically signed by Major Flood MD 01/03/25 12:50:
Preoperative diagnosis should read: 'pancreatic cancer, malignant small bowel obstruction'
Original Note:
Operative Report
Operative Report
Patient Name: Nivia Gonzalez
: 1955
Date of Operation: 01/03/25
Preoperative Diagnosis: Need for feeding access
Postoperative Diagnosis: Same
Procedure(s):
Percutaneous endoscopic gastrostomy
Surgeon(s):
Dr. Flood
Endoscopist(s):
Dr. Ackerman
Anesthesia: General
Estimated Blood Loss: 1 cc
Urine Output: None
Drains/Lines/Implants: 20 Yakut PEG tube
Specimens: None
Indication/Findings at the time of surgery:
Please see GI notes.
Details of the operation:
After inducing general anesthesia and placement of a mouth guard, an upper endoscopy was performed by the ready mix truck driver (see their note for further details) an appropriate site for the PEG tube was identified near the left costal margin. This
was confirmed by good one-to-one, transillumination as well as a safe track technique. The overlying skin was infiltrated with lidocaine and a small stab incision was made. The introducer needle was inserted through the stab incision, abdominal
wall and into the greater curve of the stomach opposite the incisura, trying to get to the most dependent portion of the stomach. This required 1 pass. The blue guidewire was inserted through the sheath and was captured by an endoscopic snare. A
20 Y[place]ut PEG tube was then advanced along the tract. The external bumper and tube feeding attachment were placed. The kit unfortunately only came with the ENFit adapter, the GI team will be attaching the usual Pearson adapter when they can identify
1. The tube was noted to be 3.5 cm at the skin. There was minimal blood loss. The patient returned to the recovery room in stable condition. Sponge and instrument counts were correct. No specimen sent to pathology from our portion of the
procedure.
I was the attending physician and performed the procedure with no assistance. I was present for all portions of the case.
Major Flood MD
--- NOTE | 2025-01-03 11:44 | W.PN.UPDATE ---
Update Note
Progress Note Update
s/p EGD with PEG for venting, Will be available as needed
[2025-01-03] MEDS: MORPHINE SULFATE 2 MG IV (12:59)
--- NOTE | 2025-01-03 13:02 | W.PN.ONC2 ---
Today's Communication / Plan
-
hospice consult
Impression
Impression
stage IV pancreatic cancer s/ nephrostomy tube and venting G tube placement
Plan
Plan
- hospice consult
- FU OP with Dr. Forte at [place]
- continue pain management
- continue to monitor nephrostomy output
- all other care per primary team
Subjective/Objective
Subjective
Patient reports abdominal pain at site of G-tube placement. She reports no issues with nephrostomy tube placement. Has not noticed any bloody discharge. She requested if hospice can come and have a conversation with her regarding her options moving
forward.
Vital Signs:
Vital Signs
Temp Pulse Resp BP Pulse Ox
99.0 F 63 15 157/71 98
01/03/25 11:45 01/03/25 11:45 01/03/25 11:45 01/03/25 11:45 01/03/25 11:45
Lab Results:
Laboratory Data
WBC 8.4 10^3/uL (4.8-10.8) 01/03/25 05:32
Hgb 10.0 g/dL (12.0-16.0) L 01/03/25 05:32
Plt Count 358 10^3/uL (130-400) 01/03/25 05:32
PT 13.3 Sec (11.4-14.6) 01/01/25 05:37
INR 0.98 01/01/25 05:37
eGFR > 60.00 01/03/25 05:32
Physical Exam
General: AAOx3, resting in bed, conversant
HEENT: Jaundice
GI: Soft
Extremities: No C/C/E
Review of Systems
Review of Systems
Reviewed and negative unless otherwise stated
Constitutional: Reports Fatigue
Gastrointestinal: Reports Other (abdominal cramping)
Skin: Reports Pruritis (at site of nephrostomy tube, mild)
--- NOTE | 2025-01-03 14:35 | CM ---
Addendum entered by Latosha Klein 01/03/25 14:40:
tt Clementina Castañeda from hospice
Original Note:
Met with patient and daughters
CM consult completed - hospice
tt trey Whitman
Referral entered in [facility]
stage IV pancreatic cancer s/ nephrostomy tube and venting G tube placement
PLAN: hospice eval
[2025-01-03] MEDS: DILAUDID 1 MG IV ×2 (14:51→20:24)
--- NOTE | 2025-01-03 15:32 | HOSPNOTE ---
Met with patient and her two daughters to discuss hospice care. Reviewed GIP and home hospice level of care, understanding stated. Patient stated she wants to continue on IV fluids at this time and speak to her oncologist tomorrow before she makes a
decision. Hospice to re-assess tomorrow at the patients request.
[2025-01-03] MEDS: D5/0.45%NACL IV (16:26)
[2025-01-03] MEDS: TORADOL 15 MG IV ×2 (17:17→23:31)
[2025-01-03] MEDS: LOVENOX SC (17:19)
[2025-01-04] MEDS: DILAUDID 1 MG IV ×5 (00:09→17:20)
[2025-01-04] MEDS: TORADOL IV ×3 (06:27→17:16)
[2025-01-04 06:46] LABS: Hematocrit 34.5 % (37.0-47.0); Hemoglobin 11.1 g/dL (12.0-16.0); Mean Corp Hgb Conc. 32.2 g/dL (33.0-37.0); Mean Corpuscular Hgb 26.5 pg (27.0-31.0); Mean Corpuscular Volume 82.3 fL (81.0-99.0); Mean Platelet Volume 9.6 fL (7.4-10.4); Platelet Count 374 10^3/uL (130-400); Red Blood Cell Count 4.19 10^6/uL (4.20-5.40); Red Cell Dist. Width 22.1 % (11.5-14.5)
[2025-01-04 07:03] LABS: Blood Urea Nitrogen 18 mg/dl (7-17); Calcium 8.9 mg/dl (8.4-10.2); Carbon Dioxide 31 mmol/L (22-30); Chloride 102 mmol/L (98-107); Estimated Creatinine Clearance 55 ml/min; Glucose 106 mg/dl (70-99); Potassium 3.6 mmol/L (3.5-5.1); Sodium 137 mmol/L (135-145); eGFR > 60.00
--- NOTE | 2025-01-04 07:07 | W.PN.HOSP.TC ---
Addendum entered and electronically signed by Juan Miguel Jules MD 01/04/25 21:12:
Attending Addendum-
I saw and evaluated the patient. I reviewed the resident�s note and agree with findings and plan as documented in the resident�s note. Sub: abd pain improved but still present. No BM no flatus. Tearful. Seen with daughters. would like to eat but
states if it makes obstruction worse then she wont eat. Full 12 point ROS reviewed and negative except as documented Exam: Vitals reviewed in chart GEN-NAD heart RRR lungs clear abd PEG in place TTP pos high pitched BS distended LE no edema
nephrostomy tube in place draining bloody urine
Plan:
#Partial small bowel obstruction- malignant
-NPO
-Continue IV fluids
-Optimize pain management-add Toradol increase Dilaudid
-01/03-venting PEG tube placed
-overall poor prognosis
-family leaning towards hospice and comfort after multiple discussions
-would like surgical vs GI opinion on stent placement prior to final hospice decision
-cont comfort measures
#Left-sided hydronephrosis
-Input output monitoring
-01/02-IR placed nephrostomy tube
#Essential hypertension secondary to pain-Optimize pain management
#Stage 4 Pancreatic cancer with biopsy-proven liver mets-appreciate heme-onc input, cancer progressing as per [id number] prognosis with family- poor prog, c/s hospice
#Depression-Hold oral medications for now
DVT prophylaxis-enoxaparin
CODE STATUS-DNR
Time spent coordinating care, review of plan of care with resident, personally reviewed records in EMR, med rec, consults, notes, labs, radiology, d/w nursing, onc, daughters � 50 mins
Original Note:
Today's Communication/Plan
-
;/
Assessment / Plan
Assessment / Plan
Assessment/plan
#Stage IV metastatic pancreatic cancer
#Partial small bowel obstruction secondary to above
-S/p EGD with PEG for venting 01/03
-GI input appreciated
-General Surgery input appreciated
-Continue IV fluids
-Pain management with IV Toradol, IV Dilaudid
-Given poor prognosis, family has made decision to lean towards hospice
-Hospice team on board, awaiting further decision from family
#Left-sided hydronephrosis secondary to pelvic mass
CT abdomen- moderate to severe left-sided hydronephrosis secondary to obstruction
Urology following
S/p placement of left nephrostomy tube 01/02/2025
CODE STATUS DNR
DVT prophylaxis Lovenox
Anticipated Discharge: Within 24 hours
Subjective/Interval History
-
Date of Service: January 04, 2025
Objective Data
-
Labs:
Laboratory Results
01/04/25
06:24
WBC 16.0 H
Hgb 11.1 L
Hct 34.5 L
Plt Count 374
Sodium 137
Potassium 3.6
Chloride 102
Carbon Dioxide 31 H
BUN 18 H
Creatinine 0.7
Glucose 106 H
Calcium 8.9
Vital Signs:
Vital Signs
Temp Pulse Resp BP Pulse Ox
99.4 F 102 18 118/68 94
01/03/25 23:52 01/03/25 23:52 01/03/25 23:52 01/03/25 23:52 01/03/25 23:52
I&O
01/03/25 01/04/25 01/05/25
06:59 06:59 06:59
Intake Total 1440 / 1440 50 / 50
Output Total 1750 / 1750 1225 / 1225
Balance -310 / -310 -1175 / -1175
Review of Systems
-
All other systems: Reviewed and negative (Except as documented)
Physical Exam
-
General: Comfortable and Conversant
Respiratory: Clear to Auscultation; Negative Wheezes
Cardiac: Regular Rhythm and S1/S2
GI: Soft, Nondistended and Tender
Genito-urinary: Bloody Urine and Nephrostomy Tubes
Musculoskeletal: No Edema
Neuro: Awake, Alert, Oriented and AO x 3
Psych: Calm
[2025-01-04 07:55] VITALS: BP 112/58
[2025-01-04] MEDS: NSS (PRESERVATIVE FREE) 10 ML IV (08:31)
[2025-01-04] MEDS: PROTONIX IV 40 MG IV (08:35)
--- NOTE | 2025-01-04 10:37 | W.PN.ONC ---
Today's Communication / Plan
-
Discussed w/ patient and family members the current issues
Malignant bowel obstruction unlikely to resolve, not a surgical candidate - she is too weak/malnourished to undergo surgery, and more importantly, it wouldn't change outcomes as she has no further options for systemic chemotherapy
Hospice is most appropriate, await further input from hospice team
Will try bentyl for GI spasm.
Continue prn pain meds. She's reluctant to consider long acting opioids at this time, but will think about it.
I remain available for patient and family as needed - they were reminded to call my office at any time
Impression
Impression
stage IV pancreatic cancer, with malignant bowel obstruction, s/p nephrostomy tube and venting G tube placement
Plan
Plan
Discussed w/ patient and family members the current issues
Malignant bowel obstruction unlikely to resolve, not a surgical candidate - she is too weak/malnourished to undergo surgery, and more importantly, it wouldn't change outcomes as she has no further options for systemic chemotherapy
Hospice is most appropriate, await further input from hospice team
Will try bentyl for GI spasm.
Continue prn pain meds. She's reluctant to consider long acting opioids at this time, but will think about it.
I remain available for patient and family as needed - they were reminded to call my office at any time
Subjective/Objective
Subjective/Objective
She is having bouts of crampy abdominal pain, especially after sipping water. G-tube placed yesterday. Daughters x3 at bedside, sister on the phone.
Vital Signs:
Vital Signs
Temp Pulse Resp BP Pulse Ox
98.2 F 121 14 112/58 98
01/04/25 07:55 01/04/25 07:55 01/04/25 07:55 01/04/25 07:55 01/04/25 09:57
Lab Results:
Laboratory Data
WBC 16.0 10^3/uL (4.8-10.8) H 01/04/25 06:24
Hgb 11.1 g/dL (12.0-16.0) L 01/04/25 06:24
Plt Count 374 10^3/uL (130-400) 01/04/25 06:24
PT 13.3 Sec (11.4-14.6) 01/01/25 05:37
INR 0.98 01/01/25 05:37
eGFR > 60.00 01/04/25 06:24
Orders
Orders
Orders From Last 24 Hours
01/04/25 10:29
Dicyclomine [Bentyl] 10 mg PO QIDPRN PRN
[2025-01-04] MEDS: BENTYL 10 MG PO (12:02)
--- NOTE | 2025-01-04 13:24 | PN.CDI ---
CDI
- -
CDI:
Physician Documentation Request
Admit Date: 12/31/24 16:52
Dear Doctor Niko,
Please review the following and provide your response in the progress notes.
Clinical Indicators:
Conduit Mechanic, 01/03
#Current BW: (01/02) 98 lbs 14.4 oz BMI 16.7 underweight, (12/31) 101 lbs 3 oz
#...Weight history (04/22/24) 103 lbs
#...pt meeting AND and ASPEN criteria for severe protein calorie malnutrition
#...of chronic disease.
Based on the above and your clinical assessment, please provide a diagnosis related to the patient's BMI:
Severe Protein Calorie Malnutrition of chronic illness
Other (please specify)
[place] Criteria ([facility] Hospitalist 2017)
2 or more criteria must be present for either
non severe or severe malnutrition
Note that the criteria differs related to the
presence of an acute or chronic illness
Chronic Illness
Energy Intake Non Severe: <75% for >1 month
Severe: <75% for >1 month
Weight Loss Non Severe: 5% over 1 month
7.5% over 3 months
10% over 6 months
20% over 1 year
Severe: >5% over 1 month
>7.5% over 3 months
>10% over 6 months
>20% over 1 year
Body Fat Non Severe: Mild Loss
Severe: Severe Loss
Use of terms such as suspected, likely, concern for, or probable (associated with a specific diagnosis that is being evaluated, monitored, or treated as if it exists) are acceptable and can be coded in the inpatient setting, when documented at the
time of discharge.
Thank you,
Meredith Simeon RN BSN CCDS
CDI Specialist
Please contact via tiger text
Please use your independent medical judgment in providing your response.
--- NOTE | 2025-01-04 14:10 | HOSPNOTE ---
Spoke with patient about hospice and the philosophy. The patient needs more time to make a decision. More information to follow.
[2025-01-04 14:50] VITALS: BP 118/64
[2025-01-04] MEDS: LOVENOX 40 MG SC (17:16)
[2025-01-04] MEDS: DILAUDID 0.5 MG IV (21:29)
[2025-01-04 23:27] VITALS: BP 102/61
[2025-01-05] VITALS (11 sets, daily range): BP systolic 82–119; BP diastolic 49–66
[2025-01-05] MEDS: TORADOL IV ×3 (00:07→18:06)
[2025-01-05] MEDS: DILAUDID 1 MG IV ×2 (03:03→07:44)
--- NOTE | 2025-01-05 07:11 | W.PN.HOSP.TC ---
Addendum entered and electronically signed by Juan Miguel Jules MD 01/05/25 20:23:
Attending Addendum-
I saw and evaluated the patient. I reviewed the resident�s note and agree with findings and plan as documented in the resident�s note. Sub: No BM no flatus. Seen with daughters. Pain better controlled with Dilaudid. Abd distended. wants frosty. Full
12 point ROS reviewed and negative except as documented Exam: Vitals reviewed in chart GEN-NAD heart RRR lungs clear abd PEG in place TTP pos high pitched BS distended but soft LE no edema nephrostomy tube in place draining bloody urine
Plan:
#Partial small bowel obstruction- malignant
-NPO-pleasure feeds
-DC IV fluids
-Optimize pain management-start PUMP REBUILDER pump
-01/03-venting PEG tube
-overall poor prognosis
-family leaning towards hospice and comfort after multiple discussions
-would like surgical vs GI opinion on palliative stent placement - explained not curative but only palliative, GI did state that not amenable to stenting
-cont comfort measures maintain dignity and answered all questions
#Left-sided hydronephrosis
-Input output monitoring
-01/02-IR placed nephrostomy tube
#Essential hypertension secondary to pain-Optimize pain management
#Stage 4 Pancreatic cancer with biopsy-proven liver mets-appreciate heme-onc input, cancer progressing as per [id number] prognosis with family- poor prog, c/s hospice
#Depression-Hold oral medications for now
DVT prophylaxis-enoxaparin
CODE STATUS-DNR
Dispo Eventual HOME with hospice likely
Time spent coordinating care, review of plan of care with resident, personally reviewed records in EMR, med rec, consults, notes, labs, radiology, d/w nursing, GI daughters � 52 mins
Original Note:
Today's Communication/Plan
-
;/
Assessment / Plan
Assessment / Plan
Assessment/plan
#Stage IV metastatic pancreatic cancer
#Partial small bowel obstruction secondary to above
-S/p EGD with PEG for venting 01/03
-GI input appreciated
-General Surgery input appreciated
-Pain management with Dilaudid PUMP REBUILDER pump
-Given poor prognosis, family has made decision to lean towards hospice
-Hospice team on board, awaiting further decision from family
-Comfort care measures
#Left-sided hydronephrosis secondary to pelvic mass
CT abdomen- moderate to severe left-sided hydronephrosis secondary to obstruction
S/p placement of left nephrostomy tube 01/02/2025
#Essential hypertension secondary to pain-Optimize pain management
#Stage 4 Pancreatic cancer with biopsy-proven liver mets-appreciate heme-onc input, cancer progressing as per [id number]-[id number] prognosis with family- poor prog, c/s hospice
#Severe Protein Calorie Malnutrition of chronic illness
CODE STATUS DNR
DVT prophylaxis Lovenox
Anticipated Discharge: 24 - 48 hours
Subjective/Interval History
-
Date of Service: January 05, 2025
Objective Data
-
Vital Signs:
Vital Signs
Temp Pulse Resp BP Pulse Ox
98.7 F 109 18 102/61 95
01/04/25 23:27 01/04/25 23:27 01/04/25 23:27 01/04/25 23:27 01/04/25 23:27
I&O
01/04/25 01/05/25 01/06/25
06:59 06:59 06:59
Intake Total 50 / 50 960 / 960
Output Total 1225 / 1225 1450 / 1450
Balance -1175 / -1175 -490 / -490
Review of Systems
-
All other systems: Reviewed and negative (Except as documented)
Physical Exam
-
General: Conversant and Appears Chronically Ill
Respiratory: Clear to Auscultation; Negative Wheezes
Cardiac: Regular Rhythm and S1/S2
GI: Soft and Tender
Genito-urinary: Bloody Urine and Nephrostomy Tubes
Musculoskeletal: No Edema
Neuro: Awake, Alert, Oriented and AO x 3
Psych: Calm
[2025-01-05] MEDS: NSS (PRESERVATIVE FREE) 10 ML IV (07:44)
[2025-01-05] MEDS: PROTONIX IV 40 MG IV (07:44)
[2025-01-05] MEDS: TORADOL 15 MG IV (11:09)
[2025-01-05] MEDS: DILAUDID 0.5 MG IV (11:40)
--- NOTE | 2025-01-05 12:09 | HOSPNOTE ---
Spoke to daughter and patient about hospice and the philosophy again. The family stated that they would like to call [facility] and find out information about their agency. The daughter is supposed to call me back with an update and if they
are moving forward with hospice services.
--- NOTE | 2025-01-05 15:45 | CM ---
Patient requested a referral to be placed to [facility].
referral placed in [facility]
Spoke with Luna from Hospice - they do not accept patients on IV medications/AUTO HAULAWAY DRIVER pump
PLAN: home with hospice pending accepting agency
[2025-01-05] MEDS: DILAUDID 0.25 MG IV (16:21)
[2025-01-05] MEDS: D5/0.45%NACL 1000 IV (16:40)
[2025-01-05] MEDS: DILAUDID PCA 30 IV (16:49)
[2025-01-05] MEDS: TYLENOL/FEVERALL 650 MG RECTAL (17:50)
[2025-01-05] MEDS: LOVENOX SC (18:06)
--- NOTE | 2025-01-05 20:31 | W.PN.UPDATE ---
Update Note
Progress Note Update
RN voices concern regarding patient code status. PLUMBING DESIGNER talked to patient, daughters and agreed to make patient comfort measures. comfort measures in place. Patient is comfortable at present on Morphine TEST TECHNICIAN.
[2025-01-06] MEDS: TORADOL 15 MG IV ×5 (00:29→23:45)
--- NOTE | 2025-01-06 02:49 | PTCARENOTE ---
RN voiced concerns to STERILIZATION TECHNICIAN regarding Pt's code status and plan of care. STERILIZATION TECHNICIAN spoke to Pt and Pt's family. Pt and Pt's family agreed to have Pt go on comfort measures. STERILIZATION TECHNICIAN ordered comfort measures for Pt. Pt comfortable on Morphine ACCOUNTS RECEIVABLE ASSOCIATE. Pt was
transferred to [address] [place] [address]. Report given to [address] [place] [address] RN.
[2025-01-06] MEDS: ZOFRAN 4 MG IV ×2 (06:06→15:52)
--- NOTE | 2025-01-06 07:05 | PTCARENOTE ---
Pt ordered PARACHUTE PANEL JOINER pump 01/05/2025 and started receiving medication at 1645. Vitals being taken as ordered and pt is on cont. monitoring for HR and O2. at 1715 pt temp started trending up and O2 started dropping, texted MD and an order of O2 and Tylenol
was ordered. Pt is currently on 2 liters of O2 and received the rectal Tylenol due to fever. Pt most recent vitals are 102.8, HR 140, resp 16, BP of 93/53, and O2 of 98. Pt resting comfortably on bed with no current complaints. Family at bedside.
made aware of vitals with no new orders. Plan of care ongoing.
[2025-01-06 07:15] VITALS: BP 91/54
--- NOTE | 2025-01-06 07:30 | W.PN.HOSP.TC ---
Addendum entered and electronically signed by Juan Miguel Jules MD 01/06/25 20:29:
Attending Addendum-
I saw and evaluated the patient. I reviewed the resident�s note and agree with findings and plan as documented in the resident�s note. Sub: No BM no flatus. Seen with daughters. Pain much better controlled with Dilaudid MOLD TOOLER. Abd distended. pain in
left side. No feveers chills. Full 12 point ROS reviewed and negative except as documented Exam: Vitals reviewed in chart GEN-NAD heart RRR lungs clear abd PEG in place TTP pos high pitched BS distended but soft LE no edema nephrostomy tube in
place draining muddy brown urine
Plan:
#Partial small bowel obstruction- malignant
-pleasure feeds
-DC IV fluids
-Optimize pain management-cont MOLD TOOLER pump adjust prn
-01/03-venting PEG tube
-overall poor prognosis
-TC start hospice
-GI opinion on palliative stent placement - explained not curative but only palliative, GI did state that not amenable to stenting
-cont comfort measures maintain dignity and answered all questions
#Left-sided hydronephrosis
-Input output monitoring
-01/02-IR placed nephrostomy tube- appears to be clogged
- will re consult to reposition as patient is uncomfortable and in pain
#Essential hypertension secondary to pain-Optimize pain management
#Stage 4 Pancreatic cancer with biopsy-proven liver mets-appreciate heme-onc input, cancer progressing as per bime-vzo-ldhkrecpr prognosis with family- poor prog, c/s hospice
#Depression-Hold oral medications for now
DVT prophylaxis-enoxaparin
CODE STATUS-DNR
Dispo- possible home on hospice
Time spent coordinating care, review of plan of care with resident, personally reviewed records in EMR, med rec, consults, notes, CM, d/w nursing, IR, daughters � 51 mins
Original Note:
Today's Communication/Plan
-
Continue comfort care measures
Assessment / Plan
Assessment / Plan
Assessment/plan
#Stage IV metastatic pancreatic cancer
#Partial small bowel obstruction secondary to above
-S/p EGD with PEG for venting 01/03
-Overall poor prognosis
-Continue comfort care measures with pain medications
-MOLD TOOLER pump ongoing
#Left-sided hydronephrosis secondary to pelvic mass
CT abdomen- moderate to severe left-sided hydronephrosis secondary to obstruction
S/p placement of left nephrostomy tube 01/02/2025
#Essential hypertension secondary to pain-Optimize pain management
#Stage 4 Pancreatic cancer with biopsy-proven liver mets-appreciate heme-onc input, cancer progressing as per axhh-jde-[id number] prognosis with family- poor prog, c/s hospice
#Severe Protein Calorie Malnutrition of chronic illness
CODE STATUS DNR
Overall poor prognosis
Anticipated Discharge: Today
Subjective/Interval History
-
Date of Service: January 06, 2025
Objective Data
-
Vital Signs:
Vital Signs
Temp Pulse Resp BP Pulse Ox
97.7 F 105 15 87/49 98
01/05/25 23:40 01/05/25 23:40 01/06/25 04:00 01/05/25 23:40 01/06/25 05:00
I&O
01/05/25 01/06/25 01/07/25
06:59 06:59 06:59
Intake Total 960 / 960 240 / 240
Output Total 1450 / 1450 1580 / 1580
Balance -490 / -490 -1340 / -1340
Review of Systems
-
Unable to obtain full review of systems at this time due to: Acuity
Physical Exam
-
General: Appears Chronically Ill and Cachectic
Cardiac: S1/S2
GI: Tender and Distended
Skin: Dry
[2025-01-06] MEDS: PROTONIX IV 40 MG IV (08:41)
[2025-01-06] MEDS: NSS (PRESERVATIVE FREE) 10 ML IV (08:41)
--- NOTE | 2025-01-06 14:04 | CM ---
Reviewed the chart notes and spoke with RN. Patient continues on a EDUCATIONAL PSYCHOLOGY PROFESSOR pump. CM continues to be available to patient/family.
Plan: Comfort care continues.
[2025-01-06 15:00] VITALS: BP 90/49
--- NOTE | 2025-01-06 15:20 | HOSPNOTE ---
Speaking with the family and patient they are now accepting to be inpatient hospice for pain management. Consents are signed and admissions was called. Patient will be seen daily and will remain here for inpatient hospice and will be placed on a
dilaudid drip.
[2025-01-06] MEDS: D5/0.45%NACL 1000 IV (15:53)
--- NOTE | 2025-01-06 18:03 | PTCARENOTE ---
Patient's family concerned for lack of output through L nephrostomy tube, patient also c/o slight bloating throughout abdomen after eating applesauce; Gastrostomy tube flushed with 30cc saline, resident asked to come to bedside to assess
nephrostomy, communicated with IR who stated to flush nephrostomy with 10 cc saline. Nephrostomy flushed, 20ml brown colored output through nephrostomy tubing. 375ml output through gastrostomy this shift. Patient with no urine output this shift,
bladder scanned by tech for 180ml. Patient states improvement in bloating after flushing and with scheduled IV Toradol. Verbal order placed by this RN to flush L nephrostomy for comfort per IR.
--- NOTE | 2025-01-06 18:13 | PTCARENOTE ---
Total shift input of 2.5mg of dilaudid through CORRECTIONAL NURSE pump, patient states pain is managed on current settings. Per MD, patient on comfort measures and okay to remain off cont POX. Patient to be admitted to inpatient hospice tomorrow per MD and hospice
RN.
--- NOTE | 2025-01-06 21:22 | HOSPNOTE ---
Patient admitted inpatient hospice level of care. Daughter signed consents. Patient is inpatient for the management of pain and anxiety. Patient to be transitioned to Dilaudid drip. Hospice chart to flip in the am per resident. Hospice will visit
daily.
[2025-01-06] MEDS: BENADRYL 12.5 MG IV (23:45)
[2025-01-07] MEDS: TORADOL 15 MG IV (07:11)
--- NOTE | 2025-01-07 07:21 | W.DCSUMMARY ---
Addendum entered and electronically signed by Juan Miguel Jules MD 01/07/25 19:52:
Attending Addendum-
I saw and evaluated the patient. I reviewed the resident�s note and agree with findings and plan as documented in the resident�s note. Sub: No BM no flatus. Seen with daughters. Pain much better controlled with Dilaudid BULL RIVETER. Abd distended. pain in
left side. No feveers chills. Full 12 point ROS reviewed and negative except as documented Exam: Vitals reviewed in chart GEN-NAD heart RRR lungs clear abd PEG in place TTP pos high pitched BS distended but soft LE no edema nephrostomy tube in
place draining muddy brown urine
Seen and examined on day of DC. Patient to be admitted to IP hospice.
Time spent coordinating care, DC planning, review of DC plan of care with resident, transition of care, review of records, med rec, consults, notes, d/w consultants, nursing, family, and CM� 32 mins
Original Note:
Documented by User: Allie Pope MD, Resident 01/07/25 07:22
Discharge Summary
Discharge Data
Date of Admission: 12/31/24
Date of Discharge: 01/07/25
-
Pending Results: No
Hospital Course
Brief Hospital course; This is a 69-year-old female with past medical history of pancreatic cancer with liver mets (diagnosed on 12/2022 with pancreatic dilations, s/p IR and liver biopsy, liver mets), depression, severe protein calorie malnutrition,
anemia, chronic pain, small bowel partial obstruction in last August and the year before who presented to ER with complaint of nausea, vomiting and abdominal pain. Patient reports she began noticing abdominal distention and crampiness after
prior hospitalization with obstructive jaundice which ERCP stenting. On presentation, labs showed mild leukocytosis. CT scan of abdomen done in the ER Findings compatible with small bowel obstruction, which appears to be secondary to a poorly
defined pelvic soft tissue mass, which may represent serosal metastatic disease. This mass also appears to occlude the distal left ureter with moderate to severe left hydronephrosis. Small volume of abdominal and pelvic ascites. Hepatic metastatic
disease with the largest lesion measuring 2.5 cm. Biliary stents in place with mild intrahepatic ductal dilatation.. Surgery was consulted who recommended conservative management of partial small bowel obstruction as the obstruction may be
malignant in nature. NG tube was placed at bedside. After further discussion with the family, decision was made for venting PEG tube for palliation. Venting PEG tube was placed 01/03/2025. Urology was consulted for her new left
hydroureteronephrosis. After multiple discussion with family, a left nephrostomy tube was placed 01/02/2025 to preserve kidney function. It was noted at the malignant bowel obstruction was unlikely to resolve, and she is not a surgical candidate.
Patient was too weak/malnourished to undergo surgery. Multiple discussions were had with family regarding goals of care as she was hospice appropriate. Comfort care measures were started including the BULL RIVETER pump for pain. Family came to a decision,
and she was discharged on Inpatient hospice.
Discharge Plan
-
Patient Disposition: Hospice - Inpatient DH
Discharge Orders:
Discharge Patient (As Directed); Ordered 01/07/25
Ordered By: Allie Pope
Discharge Date and Time
Discharge Date/Time: 01/07/25 08:05
Print Language: NEPALESE

Documented by User: Juan Miguel Jules MD 01/07/25 19:49
Discharge Summary
Discharge Data
Date of Admission: 12/31/24
Date of Discharge: 01/07/25
Discharge Plan
-
Patient Disposition: Hospice - Inpatient DH
Discharge Orders:
Discharge Patient (As Directed); Ordered 01/07/25
Ordered By: Ayobami Cayden-Odunsi
Discharge Date and Time
Discharge Date/Time: 01/07/25 08:05
Print Language: NEPALESE
[2025-01-07] MEDS: NSS (PRESERVATIVE FREE) 10 ML IV (07:22)
[2025-01-07] MEDS: PROTONIX IV 40 MG IV (07:22)
[2025-01-07] MEDS: ZOFRAN 4 MG IV (07:34)
== END 2025-01-07 08:05 | disposition hospice, inpatient (51) | DRG 435 ==
LOC: 2 NORTH 16:52
PROVIDERS: Radiology Vascular & Interventional Radiology; Registered Nurse; Student in an Organized Health Care Education/Training Program; ADMITTING PHYSICIAN Internal Medicine; ATTENDING PHYSICIAN Family Medicine; CONSULT PHYSICIAN Internal Medicine Gastroenterology; CONSULT PHYSICIAN Surgery; CONSULT PHYSICIAN Urology; EMERGENCY PHYSICIAN Emergency Medicine; FAMILY PHYSICIAN Family Medicine; OTHER PHYSICIAN Internal Medicine Hematology & Oncology
PROC: 0T9130Z Drainage of Left Kidney with Drainage Device, Percutaneous Approach (ICD-10-PCS; 2025-01-02)
PROC: 0DJ08ZZ Inspection of Upper Intestinal Tract, Via Natural or Artificial Opening Endoscopic (ICD-10-PCS; 2025-01-03)
DX: C25.2 Malignant neoplasm of tail of pancreas (principal); E43 Unspecified severe protein-calorie malnutrition; K56.690 Other partial intestinal obstruction; C78.7 Secondary malignant neoplasm of liver and intrahepatic bile duct; N13.30 Unspecified hydronephrosis; R18.8 Other ascites; R64 Cachexia; Z68.1 Body mass index [BMI] 19.9 or less, adult; Z66 Do not resuscitate; F32.A Depression, unspecified; I10 Essential (primary) hypertension; Z51.5 Encounter for palliative care; Z87.19 Personal history of other diseases of the digestive system
CPT/HCPCS: 50432; 74018; 74177; 80048; 80053; 81003; 81015; 82550; 83690; 83735; 85025; 85027; 85610; 93005; 96374; 96375; 96376; 99152; 99285; C1729; C1769; Q9967

== ENCOUNTER 2025-01-07 08:13 | Inpatient (IN) | payer OTHER, SELFPAY ==
--- NOTE | 2025-01-07 07:37 | HPS.HSE ---
Addendum entered and electronically signed by Juan Miguel Jules MD 01/07/25 20:04:
Attending Addendum-I performed a history and physical exam of the patient and discussed his management with the resident. I reviewed the resident's note and agree with the documented findings and plan of care CC/HPI-patient with a malignant SBO and
stage 4 panc ca. Multiple discussions had with family and opted to transition to inpatient hospice care. Sub: patient is groggy and falling asleep. easily arousable. No BM no flatus. Seen with daughters. Pain is controlled. Full 12 point ROS
reviewed and negative except as documented Exam: Vitals reviewed in chart GEN-NAD heart RRR lungs clear abd PEG in place TTP pos high pitched BS distended but soft LE no edema nephrostomy tube in place draining muddy brown urine
Plan:
#Partial small bowel obstruction- malignant
-pleasure feeds
-DC IV fluids
-Optimize pain management-transition CLOTH CLASSER pump to gtt per hospice
-01/03-venting PEG tube placed
-admit to hospice
-GI opinion on palliative stent placement - explained not curative but only palliative, GI did state that not amenable to stenting
#Left-sided hydronephrosis
-01/02-IR placed nephrostomy tube-clog cleared by flushing
#Essential hypertension
#Stage 4 Pancreatic cancer with biopsy-proven liver mets-appreciate heme-onc input, cancer progressing as per [id number] prognosis with family- poor prog, c/s hospice
#Depression-Hold oral medications for now
CODE STATUS-DNR
ACP
Patient consented to discuss, was with daughters, time spent explanation of advance directives, changes in health status, patient�s health care wishes if the patient becomes unable to make health decisions, goals of care, code status, and prognosis-
agreed to transition to IP hospice - 16 minutes
Time spent coordinating care, review of plan of care with resident, personally reviewed previous records in EMR, med rec, labs, radiology, d/w nursing, family total time documented is exclusive of any additional time listed that was spent in advance
care planning discussion -� 75 minutes
Original Note:
Family Physician
-
Family Physician: NOT KNOW UNKNOWN - PT DOES
Chief Complaint
-
;/
History of Present Illness
This is a 69-year-old female with past medical history of pancreatic cancer with liver mets (diagnosed on 12/2022 with pancreatic dilations, s/p IR and liver biopsy, liver mets), depression, severe protein calorie malnutrition, anemia, chronic pain,
small bowel partial obstruction in last August and the year before who presented to ER with complaint of nausea, vomiting and abdominal pain.� Patient reports she began noticing abdominal distention and crampiness after prior hospitalization
with obstructive jaundice which ERCP stenting.� On presentation, labs showed mild leukocytosis.� CT scan of abdomen done in the ER Findings compatible with small bowel obstruction, which appears to be secondary to a poorly defined pelvic soft tissue
mass, which may represent serosal metastatic disease. This mass also appears to occlude the distal left ureter with moderate to severe left hydronephrosis.� Small volume of abdominal and pelvic ascites. Hepatic metastatic disease with the largest
lesion measuring 2.5 cm. Biliary stents in place with mild intrahepatic ductal dilatation..� Surgery was consulted who recommended conservative management of partial small bowel obstruction as the obstruction may be malignant in nature.� NG tube was
placed at bedside.� After further discussion with the family, decision was made for venting PEG tube for palliation.� Venting PEG tube was placed 01/03/2025. Urology was consulted for her new left hydroureteronephrosis. After multiple discussion with
family, a left nephrostomy tube was placed 01/02/2025 to preserve kidney function.� It was noted at the malignant bowel obstruction was unlikely to resolve, and she is not a surgical candidate.� Patient was too weak/malnourished to undergo surgery.�
Multiple discussions were had with family regarding goals of care as she was hospice appropriate.� Family came to a decision, and she was discharged on Inpatient hospice.� She is currently on Dilaudid drip.
Medical History
Past Medical History
Past Medical History: Reports Other (Pancreatic cancer with biopsy-proven liver mets), HTN, Psychiatric (Depression) and Other (S/p ERCP x 2 12/28/2024, 04/23/2024 for choledocholithiasis, biliary sludge removal and stent cleaning/exchange, liver
injury due to obstruction))
Additional Past Medical History:
Partial small bowel obstruction x 3 resolved with medical treatment
Left-sided hydronephrosis
Past Surgical History: Reports Other (Reports and Other ([place] tooth extraction, port a cath, ERCP x 2))
Social History
Tobacco: Non-smoker
Alcohol: None
Drug: None
Living: With Family
Family History
Family History: Not pertinent
Allergies / Home Medications
Allergies reflects when Allergies were last updated in [employer].
Home Medications with original date entered in [employer]
Allergy/Medication List:
Allergies
Allergy/AdvReac Type Severity Reaction Status Date / Time
Sulfa (Sulfonamide Allergy Rash/HIVES Verified 12/31/24 09:51
Antibiotics)
Home Medications
fluoxetine 40 mg capsule 40 mg PO DAILY Depression 04/22/24
naltrexone 4.5 mg capsule 4.5 mg PO HS Pain 04/22/24
ondansetron HCl 8 mg tablet 8 mg PO Q8HPRN PRN nausea 04/22/24
cholecalciferol (vitamin D3) 25 mcg (1,000 unit) tablet 25 mcg PO DAILY Supplement 12/24/24
prochlorperazine maleate 10 mg tablet 10 mg PO Q6HPRN PRN nausea 12/24/24
vitamin K2 40 mcg tablet 40 mcg PO DAILY Supplement 12/24/24
zinc sulfate 50 mg zinc (220 mg) tablet 50 mg PO DAILY Supplement 12/24/24
gabapentin 300 mg capsule 300 mg PO HS #30 caps 12/29/24
Review of Systems
-
Unable to obtain full review of systems at this time due to: Acuity
Physical Exam
Physical Exam
General: Appears Chronically Ill
Respiratory: Clear
Cardiac: S1/S2
GI: Tender, Distended, Peg Tube and Other (High-pitched bowel sounds)
Genito-urinary: Nephrostomy Tubes
Skin: Dry
Psych: Confused
Impression/Plan
-
IMPRESSION/PLAN:
#Partial small bowel obstruction
#Left-sided hydronephrosis
#Stage IV pancreatic cancer with metastasis
#Severe protein calorie malnutrition of chronic illness
-Patient admitted to inpatient hospice for end-of-life care
-Goals of care established as comfort measures only
-Continue Dilaudid drip for pain and dyspnea, titrate to comfort
-Continue supportive care
-Hospice team, nursing care to continue with supports
-Anticipatory guidance provided to family including psychosocial and spiritual support.
CODE STATUS DNR
[2025-01-07 07:50] VITALS: BP 94/49
--- NOTE | 2025-01-07 08:38 | CM ---
Reviewed the chart notes. Patient transitioned onto [facility].
[2025-01-07 08:57] VITALS: BMI 17.0
--- NOTE | 2025-01-07 09:12 | PTCARENOTE ---
Patient admitted onto inpatient hospice. Patient c/o of nausea. PRN Zofran ordered and administered. BMW SERVICE TECHNICIAN pump d/c and Dilaudid gtt ordered at step 1. Family and patient updated at bedside. Patient with no c/o of pain at this time.
[2025-01-07] MEDS: DILAUDID 50 IV (09:32)
[2025-01-07] MEDS: DILAUDID 0.25 MG IV ×3 (09:38→15:40)
--- NOTE | 2025-01-07 14:34 | CHAP ---
Per family, Nivia has received Sacrament of the Sick/Last Rites already.
[2025-01-07 15:00] VITALS: BP 93/47
--- NOTE | 2025-01-07 15:44 | HOSPNOTE ---
Patient GIP for management of pain requiring IV pain medication, patient currently on a Dilaudid GTT. Patient unresponsive during the visit, patients three daughters at the bedside. Patients daughters stated patient had just been medicated with a
PRN dose of Dilaudid for breakthrough pain. Reviewed with patients daughters what to expect as patient continues to decline and becomes close to passing, provided them with 'When the time comes' book and encouraged them to contact hospice with any
questions. Patients daughter stated patient received the last rights yesterday, requested more holy water, contacted hospital platform operations director who stated she would bring some to the patient.
--- NOTE | 2025-01-07 16:35 | HOSPNOTE ---
DIGITAL MEDIA SALES CONSULTANT VISITED 69 YEAR OLD PATIENT TO CONDUCT INITIAL SODA TESTER ASSESSMENT. PATIENT RECENTLY ADMITTED ONTO HOSPICE SERVICES AND [facility] LEVEL OF CARE WITH THE PRIMARY DIAGNOSIS OF PANCREATIC CANCER. NURSE REPORTED MEDICATIONS ADMINISTERED,
PATIENT DOING FINE, DAUGHTERS AND OTHER FAMILY MEMBERS PRESENT AT PATIENT'S BEDSIDE. SODA TESTER GREETED PATIENT AND FAMILY WHILE ENTERING HER ROOM, EVERYONE SAID HELLO TO SODA TESTER. SODA TESTER INTRODUCED HERSELF AND EXPLAIN ANNEALER HELPER ROLE IT RELATES TO THE
HOSPICE TEAM. PATIENT SITTING UP IN HER BED ENGAGED IN CONVERSATION WITH FAMILY. PATIENT REPORTED SHE'S OKAY AND DENIES PAIN, NO SIGNS OF DISTRESS WAS OBSERVED. DAUGHTERS ASKED PATIENT'S BROTHER AND JESSICA IF THEY WANTED TO A FEW PRIVATE MOMENTS. SODA TESTER
AND DAUGHTERS WENT TO THE FAMILY ROOM. MONTY, ADINA, AND LIZBETH REPORTED THEY ARE OKAY AND PATIENT IS RECEIVING GREAT CARE. ADINA REPORTED PATIENT WANTED TO GO HOME AND NOW PATIENT STATES THIS IS WHERE SHE NEEDS TO BE. MONTY REPORTED THEY LOST
THEIR FATHER A FEW YEARS AGO AND THEY ARE FAMILIAR WITH HOW THINGS ARE GOING. MONTY REPORTED PATIENT WAS THE PRIMARY CAREGIVER FOR HER MOTHER AND SPOUSE. PATIENT IS CARING AND ALWAYS LOOKING OUT FOR OTHERS. PATIENT HAS 6 BROTHERS AND SISTERS
THAT [place] IN [facility] [facility] AND THEY HAVE BEEN VISITING. PATIENT HAS 3 DAUGHTERS MONTY, ADINA, AND LIZBETH, AND 11 GRANDCHILDREN. MONTY AND ADINA ARE THE POA. MONTY REPORTED THEY HAVE EACH OTHER TO LEAN ON AND SUPPORT. PATIENT WAS A STAY AT
HOME AND MOTHER, HOME SCHOOLED THEM UNTIL THEY GOT OF AGE. PATIENT EMPLOYED PART-TIME FOR THE POST OFFICE. PATIENT IS GENEROUS WITH HER TIME AND MONEY. PATIENT LOVED ANIMALS THEY HAD HORSES, DOGS, AND CHICKENS. PATIENT IS A GREAT COOK ALWAYS
LOOKING FOR RECIPES. PATIENT PLAYED THE PIANO AND SOME ART WORK. PATIENT IS [place] AND IS AFFILIATED WITH [facility] IN [place]. PATIENT WISHES ARE TO BE BURIED WITH HER SPOUSE. [facility] IN [place] IS IN
CHARGE OF THE ARRANGEMENTS. BEREAVEMENT IS LOW FAMILY APPEARS TO BE COPING APPROPRIATELY. ADINA MILLAN, AND LIZBETH ARE INTERESTED IN BEREAVEMENT SERVICES. EMOTIONAL SUPPORT PROVIDED.
PATIENT MEETS GIP CRITERIA FOR SN ASSESSMENTS, MANAGEMENT OF PAIN REQUIRING IV PAIN MEDICATIONS THAT COULD NOT BE MANAGED AT HOME AND/OR IN AN OUTPATIENT SETTING. DISCHARGE PLANNING CONTINUES.
SODA TESTER WILL CONDUCT VISIT ONCE A WEEK WHILE ON GIP TO PROVIDE SUPPORTIVE SERVICES AND TO MONITOR FOR ADDITIONAL SERVICES.
[2025-01-07] MEDS: NSS (PRESERVATIVE FREE) 0.9 ML IV (16:57)
[2025-01-07] MEDS: ATIVAN 0.5 MG IV (16:58)
--- NOTE | 2025-01-07 18:12 | PTCARENOTE ---
Patient with no urine output past 2 days. BS for 249 ml in bladder. Family refusing end of life herrera at this time.
[2025-01-07 23:20] VITALS: BP 87/48
[2025-01-08] MEDS: ATIVAN 0.5 MG IV ×3 (00:36→22:17)
[2025-01-08 07:15] VITALS: BP 110/55
--- NOTE | 2025-01-08 11:13 | W.PN.HOSP.TC ---
Today's Communication/Plan
-
cont hospice care
Assessment / Plan
Assessment / Plan
#Partial small bowel obstruction- malignant
-pleasure feeds
-DC IV fluids
-Optimize pain management-transition RISK ADJUSTMENT SPECIALIST pump to gtt per hospice
-01/03-venting PEG tube placed
-admit to hospice
-GI opinion on palliative stent placement - explained not curative but only palliative, GI did state that not amenable to stenting
#Left-sided hydronephrosis
-01/02-IR placed nephrostomy tube-clog cleared by flushing
#Essential hypertension
#Stage 4 Pancreatic cancer with biopsy-proven liver mets-appreciate heme-onc input, cancer progressing as per iwdf-mzq-umtxaydef prognosis with family- poor prog, c/s hospice
#Depression-Hold oral medications for now
CODE STATUS-DNR
Update 01/08 - Continue hospice care
Anticipated Discharge: Within 24 hours
Subjective/Interval History
-
Date of Service: January 08, 2025
No acute events overnight
Objective Data
-
Vital Signs:
Vital Signs
Temp Pulse Resp BP Pulse Ox
97 F 98 18 110/55 97
01/08/25 07:15 01/08/25 07:15 01/08/25 07:15 01/08/25 07:15 01/08/25 07:15
I&O
01/07/25 01/08/25 01/09/25
06:59 06:59 06:59
Intake Total 170 / 170
Output Total 200 / 200
Balance -30 / -30
Review of Systems
-
History Source: Patient
All other systems: Not reviewed unless documented
Physical Exam
-
General: Appears Chronically Ill and Cachectic
Cardiac: S1/S2
GI: Tender and Distended
Skin: Dry
--- NOTE | 2025-01-08 11:43 | HOSPNOTE ---
Patient remains GIP appropriate level of care requiring a continuous Dilaudid infusion at 0.3mg/hr . Received Ativan IV x 2 in last 24 hours for anxiety also. Patient has a nephrostomy tube that is draining scant brown, Is oliguric and has not
voided in 2 days, bladder scan this am for 249ml. Three daughters present in the room. Emotional support given and long discussion about giving space for patient to pass in addition to being present. Al three daughter spend the night. Daughters
grieving appropriately.
[2025-01-08] MEDS: NSS (PRESERVATIVE FREE) 0.9 ML IV (16:34)
[2025-01-08] MEDS: DILAUDID 0.25 MG IV ×3 (16:35→23:57)
--- NOTE | 2025-01-08 18:27 | PTCARENOTE ---
pt received bed bath this afternoon with RN and pct. prn ativan and morphine given this afternoon. see MAR for proper documentation.
[2025-01-08 19:53] VITALS: BP 97/52
[2025-01-09] MEDS: DILAUDID 0.25 MG IV ×3 (04:12→06:45)
[2025-01-09] MEDS: ATIVAN 0.5 MG IV ×3 (07:16→22:34)
[2025-01-09 07:45] VITALS: BP 80/42
--- NOTE | 2025-01-09 09:37 | W.PN.HOSP.TC ---
Today's Communication/Plan
-
see A/P
Assessment / Plan
Assessment / Plan
A/P:
# Partial small bowel obstruction- malignant
DC IV fluids, pleasure feeds
Optimize pain management- transitioned ASP WEB DEVELOPER pump to gtt per hospice
Cont hospice care
# Left-sided hydronephrosis
01/02 IR placed nephrostomy tube- clog cleared by flushing
# Essential hypertension
# Stage 4 Pancreatic cancer with biopsy-proven liver mets-appreciate heme-onc input, cancer progressing as per [id number]-mcfhjirxy prognosis with family- poor prog, c/s hospice
# Depression-Hold oral medications for now
CODE STATUS-DNR
provided emotional support to family at bedside
Anticipated Discharge: Within 24 hours
Subjective/Interval History
-
Date of Service: January 09, 2025
Objective Data
-
Vital Signs:
Vital Signs
Temp Pulse Resp BP Pulse Ox
36.6 C 116 18 80/42 89
01/09/25 07:45 01/09/25 07:45 01/09/25 07:45 01/09/25 07:45 01/08/25 19:53
I&O
01/08/25 01/09/25 01/10/25
06:59 06:59 06:59
Intake Total 170 / 170
Output Total 200 / 200 150 / 150
Balance -30 / -30 -150 / -150
Review of Systems
-
Unable to obtain full review of systems at this time due to: Acuity
Physical Exam
-
General: Appears Chronically Ill and Cachectic
Neuro: Negative Awake
Psych: Calm
[2025-01-09] MEDS: DILAUDID 0.5 MG IV ×4 (11:49→22:04)
--- NOTE | 2025-01-09 13:13 | HOSPNOTE ---
Patient unresponsive, FLACC 0. Actively dying. Comfortable on Dilauded drip. Breathing nonlabored, RR 8-10. Nail bedsm dusky. 2 daughters at bedside. Emotional support provided and questions and concerns addressed. Discussed life expectancy is hours
to days. Daughters coping. Informal report with Seymour. No new concerns. Patient to remain GIP for management of symptoms.
[2025-01-09 19:47] VITALS: BP 72/39
[2025-01-10] MEDS: DILAUDID 0.5 MG IV ×3 (02:27→05:31)
[2025-01-10] MEDS: ATIVAN 0.5 MG IV ×2 (06:16→13:48)
[2025-01-10 07:00] VITALS: BP 71/37
[2025-01-10] MEDS: DILAUDID 1 MG IV ×7 (08:46→23:43)
--- NOTE | 2025-01-10 10:58 | W.PN.HOSP.TC ---
Today's Communication/Plan
-
cont inpt hospice
Assessment / Plan
Assessment / Plan
A/P:
# Partial small bowel obstruction- malignant
DC IV fluids, pleasure feeds if able
Optimize pain management- transitioned KNOWLEDGE ENGINEER pump to gtt per hospice
Cont hospice care
# Left-sided hydronephrosis
01/02 IR placed nephrostomy tube- clog cleared by flushing
# Essential hypertension
# Stage 4 Pancreatic cancer with biopsy-proven liver mets-appreciate heme-onc input, cancer progressing as per ablm-rwk-homrimmpi prognosis with family- poor prog, c/s hospice
# Depression-Hold oral medications for now
CODE STATUS-DNR
provided emotional support to family at bedside
Anticipated Discharge: Within 24 hours
Subjective/Interval History
-
Date of Service: January 10, 2025
Objective Data
-
Vital Signs:
Vital Signs
Temp Pulse Resp BP Pulse Ox
36.6 C 117 18 71/37 96
01/10/25 07:00 01/10/25 07:00 01/10/25 07:00 01/10/25 07:00 01/10/25 07:00
I&O
01/09/25 01/10/25 01/11/25
06:59 06:59 06:59
Intake Total 0 / 0
Output Total 150 / 150
Balance -150 / -150 0 / 0
Review of Systems
-
Unable to obtain full review of systems at this time due to: Acuity
Physical Exam
-
General: Appears Chronically Ill and Cachectic
Neuro: Negative Awake
Psych: Calm
--- NOTE | 2025-01-10 13:18 | HOSPNOTE ---
Patient will be seen daily by hospice. The patient is active remains on a dilaudid drip. Family is bedside. Patient continues to be inpatient appropriate for pain management.
[2025-01-10] MEDS: NSS (PRESERVATIVE FREE) 0.9 ML IV (13:49)
--- NOTE | 2025-01-10 14:53 | CM ---
CM reviewed chart
Pt remains on [facility]IP hospice
[2025-01-10] MEDS: DILAUDID 50 IV (18:02)
[2025-01-10 19:20] VITALS: BP 78/34
[2025-01-10] MEDS: ROBINUL 0.2 MG IV (22:57)
--- NOTE | 2025-01-11 02:06 | W.PN.DEATH ---
Pronouncement of
-
Called to see patient to pronounce.
No spontaneous heart tones or respirations noted.
Patient not responsive to verbal stimuli.
Patient is pronounced .
daughters at the bedside
Time of : 00:50
Date of : 01/11/25
--- NOTE | 2025-01-11 03:40 | PTCARENOTE ---
Entered room on hourly rounds; pt noted without spontaneous breaths or heart tones. Covering NUCLEAR MEDICINE TECH notified to pronounce TOD. Pt's daughters at the bedside, emotional support provided, all needs met/questions answered, pt's belongings sent home with
her three daughters. Post mortem care provided, [facility] notified.
--- NOTE | 2025-01-11 12:24 | W.DCSUMMARY ---
Discharge Summary
Discharge Data
Date of Admission: 01/07/25
Date of Discharge: 01/11/25
-
Pending Results: No
Hospital Course
Clinical course:�
This is a 69-year-old female with past medical history of pancreatic cancer with liver mets (diagnosed on 12/2022 with pancreatic dilations, s/p IR and liver biopsy, liver mets), depression, severe protein calorie malnutrition, anemia, chronic pain,
small bowel partial obstruction; presented with nausea, vomiting and abdominal pain.�
She had had ERCP stenting, but despite this, still experienced abdominal distention and campiness. Her CT abdomen done showed small bowel obstruction, which appeared to be secondary to a poorly defined pelvic soft tissue mass (likely from serosal
metastatic disease). This mass also appeared to occlude the distal left ureter with moderate to severe left hydronephrosis.�
Surgery was consulted who recommended conservative management of partial small bowel obstruction as the obstruction may be malignant in nature.�
She had had NG tube placement, followed by venting PEG tube placement for palliation. She also had a left nephrostomy tube placed for the hydronephrosis.
Goals of care was discussed with her family due to very poor prognosis and severe clinical deterioration, and the decision was made to transition her to inpatient hospice.
She peacefully on 01/11/25, and the time of was at 00:50.
Her family was at bedside during pronouncement.
Discharge Plan
-
Patient Disposition:
Date/Time
Date/Time: 01/11/25 00:50
Discharge Date and Time
Discharge Date/Time: 01/11/25 00:50
Print Language: AMHARIC
== END 2025-01-11 00:50 | disposition expired | DRG 951 ==
LOC: 2 NORTH 08:13
PROVIDERS: ADMITTING PHYSICIAN Family Medicine; ATTENDING PHYSICIAN Internal Medicine
DX: Z51.5 Encounter for palliative care (principal); E43 Unspecified severe protein-calorie malnutrition; C25.9 Malignant neoplasm of pancreas, unspecified; C78.7 Secondary malignant neoplasm of liver and intrahepatic bile duct; Z68.1 Body mass index [BMI] 19.9 or less, adult; K56.690 Other partial intestinal obstruction; N13.30 Unspecified hydronephrosis; R18.8 Other ascites; I10 Essential (primary) hypertension; Z66 Do not resuscitate; Z93.1 Gastrostomy status; Z93.6 Other artificial openings of urinary tract status